=== PATIENT | male | born 1975 | race Caucasian/White ===

== ENCOUNTER 2016-12-27 13:13 | Inpatient (IN) | payer SELFPAY ==
[2016-12-27] MEDS ORDERED: KETOROLAC TROMETHAMINE INJ/PF 30 MG/1 ML SDV IV ONE (13:36)
[2016-12-27] MEDS ORDERED: ONDANSETRON ODT 4 MG TAB (6 TAB/DSPK) PO PRN (13:36)
[2016-12-27] MEDS ORDERED: MORPHINE SULFATE 10 MG/ML INJ IV ONE (13:36)
--- NOTE | 2016-12-27 13:40 | ER Document Report ---
ED Medical Screen (RME) - General Chief Complaint: Abdominal Pain Stated Complaint: ABDOMINAL PAIN Time Seen by Provider: 12/27/16 13:32 Notes: Patient presents with sudden onset of right flank pain that radiates into both testicles. He has been nauseous. He states he does have a previous history of kidney stones although this feels slightly different. On exam his testicles are not swollen or enlarged. There is no induration. I do not see any significant evidence of torsion at this time. Exam seems to be more consistent with a ureteral stone. TRAVEL OUTSIDE OF THE [place] IN LAST 30 DAYS: No - Related Data Allergies/Adverse Reactions: No Known Allergies Allergy (Verified 12/27/16 13:27) Past Medical History - Past Medical History Cardiac Medical History: Denies: Hx Coronary Artery Disease, Hx Heart Attack, Hx Hypertension Pulmonary Medical History: Reports: Hx Bronchitis, Hx Pneumonia Denies: Hx Asthma, Hx COPD Neurological Medical History: Denies: Hx Cerebrovascular Accident, Hx Seizures Renal/ Medical History: Denies: Hx Peritoneal Dialysis Musculoskeltal Medical History: Denies Hx Arthritis, Reports Hx Gout Psychiatric Medical History: Reports: Hx Attention Deficit Hyperactivity Disorder Past Surgical History: Denies: Hx Pacemaker - Immunizations Immunizations up to date: Yes Hx Diphtheria, Pertussis, Tetanus Vaccination: Yes Physical Exam - Vital signs Vitals: Temp Pulse BP Pulse Ox 97.4 F 91 127/97 H 100 12/27/16 13:28 12/27/16 13:28 12/27/16 13:28 12/27/16 13:28 Course - Vital Signs Vital signs: Temp Pulse Resp BP Pulse Ox 97.4 F 91 127/97 H 100 12/27/16 13:28 12/27/16 13:28 12/27/16 13:28 12/27/16 13:28
[2016-12-27] MEDS ORDERED: ONDANSETRON HCL INJ/PF 4 MG/2 ML SDV IV ONE (13:48)
[2016-12-27] MEDS: NORMAL SALINE 1000 ML 1,000 ML IV PRN ×3 (13:52→21:05)
[2016-12-27 14:19] LABS: ALANINE AMINOTRANSFERASE 17 U/L (21-72); ALBUMIN 4.7 g/dL (3.5-5.0); ALKALINE PHOSPHATASE 88 U/L (38-126); ANION GAP 15 (5-19); ASPARTATE AMINO TRANSFERASE 16 U/L (17-59); BILIRUBIN,DIRECT 0.3 mg/dL (0.0-0.4); BILIRUBIN,TOTAL 1.3 mg/dL (0.2-1.3); BLOOD UREA NITROGEN 13 mg/dL (7-20); CALCIUM 9.9 mg/dL (8.4-10.2); CARBON DIOXIDE 23 mmol/L (22-30); CHLORIDE 103 mmol/L (98-107); CREATININE RESULT 0.73 mg/dL (0.52-1.25); GLUCOSE 101 mg/dL (75-110); POTASSIUM 3.9 mmol/L (3.6-5.0); SODIUM 140.5 mmol/L (137-145); TOTAL PROTEIN 7.9 g/dL (6.3-8.2)
--- NOTE | 2016-12-27 14:25 | RADIOLOGY REPORT (SQ) ---
EXAM DESCRIPTION: CT ABD/PELVIS NO ORAL OR IV COMPLETED DATE/TIME: 12/27/2016 2:08 pm REASON FOR STUDY: left flank pain COMPARISON: None. TECHNIQUE: CT scan of the abdomen and pelvis performed without intravenous or oral contrast. Images reviewed with lung, soft tissue, and bone windows. Reconstructed coronal and sagittal MPR images revi ewed. All images stored on PACS. All CT scanners at this facility use dose modulation, iterative reconstruction, and/or weight based d osing when appropriate to reduce radiation dose to as low as reasonably achievable (ALARA). [facility]: Dose Right [facility]: CareDose [facility]: Dose Right [facility]: Teradose 4D [facility]: Smart Hubspan RADIATION DOSE: Up-to-date CT equipment and radiation dose reduction techniques were employed. CTDIv ol: 10.9 mGy. DLP: 673 mGy-cm.mGy. LIMITATIONS: None. FINDINGS: LOWER CHEST: No significant findings. No nodules or infiltrates. NON-CONTRASTED LIVER, SPLEEN, ADRENALS: Evaluation limited by lack of IV contrast. No identified sign ificant masses. PANCREAS: No masses. No peripancreatic inflammatory changes. GALLBLADDER: No identified stones by CT criteria. No inflammatory changes to suggest cholecystitis. RIGHT KIDNEY AND URETER: No suspicious masses. Assessment limited by lack of IV contrast. No signif icant calcifications. No hydronephrosis or hydroureter. LEFT KIDNEY AND URETER: No suspicious masses. Assessment limited by lack of IV contrast. No signifi cant calcifications. No hydronephrosis or hydroureter. AORTA AND RETROPERITONEUM: No aneurysm. No retroperitoneal masses or adenopathy. BOWEL AND PERITONEAL CAVITY: Several diverticuli in the sigmoid colon. There is minimal inflammation in the adjacent soft tissues. No focal fluid collections to suggest a formed abscess. There are a few tiny bubbles of free air located under the right and left diaphragm. APPENDIX: Not visualized. PELVIS, BLADDER, AND ABDOMINAL WALL:No abnormal masses. No free fluid. Bladder normal. BONES: No significant findings. OTHER: No other significant finding. IMPRESSION: 1. NUMEROUS SIGMOID DIVERTICULI. POSSIBLE MILD SIGMOID DIVERTICULITIS. 2. A FEW TINY BUBBLES OF FREE AIR PRESENT UNDER THE RIGHT AND LEFT HEMIDIAPHRAGM. NO OBVIOUS SOURCE ALTHOUGH MAY BE RELATED TO SIGMOID DIVERTICULITIS. 3. NO OTHER SIGNIFICANT OR ACUTE PROCESS IN THE ABDOMEN OR PELVIS. TECHNICAL DOCUMENTATION: JOB ID: [id number] Quality ID # [id number]: Final reports with documentation of one or more dose reduction techniques (e.g., Au tomated exposure control, adjustment of the mA and/or kV according to patient size, use of iterative reconstruction technique) 2010 [employer]- All Rights Reserved
[2016-12-27 14:35] LABS: HEMOGLOBIN 16.8 g/dL (13.5-17.0); HGB HCT DIFFERENCE 1.4; MEAN CORPUSCULAR HEMOGLOBIN 29.9 pg (27.0-33.4); MEAN CORPUSCULAR HGB CONC 34.3 g/dL (32.0-36.0); MEAN CORPUSCULAR VOLUME 87 fl (80-97); RED BLOOD COUNT 5.61 10^6/uL (4.35-5.55); RED CELL DISTRIBUTION WIDTH 13.9 % (11.5-14.0); WHITE BLOOD COUNT 26.4 10^3/uL (4.0-10.5)
[2016-12-27 14:36] LABS: BASOPHILS % (MANUAL) 0 % (0-2); EOSINOPHILS % (MANUAL) 0 % (0-6); LYMPHOCYTES % (MANUAL) 15 % (13-45); TOTAL CELLS COUNTED 100
[2016-12-27 14:37] LABS: RBC MORPHOLOGY COMMENT NORMO-CYTIC/CHROMIC; TOXIC VACUOLATION PRESENT
[2016-12-27] MEDS ORDERED: HYDROMORPHONE HCL INJ/PF 2 MG/ML AMPULE IV ONE (14:50)
[2016-12-27] MEDS ORDERED: IMIPENEM/CILASTATIN SODIUM INJ 500 MG VIAL IV ONE (14:50)
[2016-12-27] MEDS ORDERED: METRONIDAZOLE 500 MG/NS RTU 100 ML IV ONE ×2 (14:52→23:02)
[2016-12-27] MEDS ORDERED: NORMAL SALINE 1000 ML 1,000 ML IV PRN (14:52)
[2016-12-27] MEDS ORDERED: LEVOFLOXACIN 750 MG/D5W RTU 150 ML IV ONE (14:52)
--- NOTE | 2016-12-27 14:53 | ER Document Report ---
ED GI/ - General Mode of Arrival: Ambulatory Information source: Patient TRAVEL OUTSIDE OF THE [place] IN LAST 30 DAYS: No - HPI Patient complains to provider of: Abdominal pain Associated symptoms: Other - See above <VERONICA LOAIZA - Last Filed: 12/27/16 16:27> <SAFIA NEVAREZ - Last Filed: 12/27/16 22:26> - General Chief Complaint: Abdominal Pain Stated Complaint: ABDOMINAL PAIN Time Seen by Provider: 12/27/16 13:32 Notes: Patient is a 41 year old male, with a past medical history including kidney stones and ulcers, who presents to the emergency department complaining of abdominal pain onset at 1600 yesterday. Patient reports the pain came on suddenly located around his belly button and shoots down to his testicles, today it is also in his right side. Patient states that it feels different from his previous kidney stones. Patient reports he thought it may have been constipation so he took stool softeners yesterday and has had black watery diarrhea. Patient also complains of vomiting. Patient admits he takes Motrin regularly for his headaches. Patient states that he has had constant left lower abdominal pain for years and has had it looked at by a doctor who did not believe it was anything to worry about. (VERONICA LOAIZA) - Related Data Allergies/Adverse Reactions: No Known Allergies Allergy (Verified 12/27/16 13:27) Home Medications: Current Home Medications Ibuprofen [Advil] 1,200 mg PO DAILYP PRN 12/27/16 [History] Past Medical History - General Information source: Patient - Social History Smoking Status: Current Every Day Smoker Chew tobacco use (# tins/day): No Frequency of alcohol use: None Drug Abuse: Marijuana Family History: Reviewed & Not Pertinent, DM, Malignancy Patient has suicidal ideation: No Patient has homicidal ideation: No Pulmonary Medical History: Reports: Hx Bronchitis, Hx Pneumonia Renal/ Medical History: Reports: Hx Kidney Stones GI Medical History: Reports: Hx Ulcer Musculoskeltal Medical History: Reports Hx Gout Psychiatric Medical History: Reports: Hx Attention Deficit Hyperactivity Disorder Surgical Hx: Negative - Immunizations Immunizations up to date: Yes Hx Diphtheria, Pertussis, Tetanus Vaccination: Yes <VERONICA LOAIZA - Last Filed: 12/27/16 16:27> Review of Systems - Review of Systems Constitutional: No symptoms reported EENT: No symptoms reported Cardiovascular: No symptoms reported Respiratory: No symptoms reported Gastrointestinal: See HPI, Abdominal pain, Vomiting Genitourinary: No symptoms reported Male Genitourinary: See HPI, Testicular pain Musculoskeletal: No symptoms reported Skin: No symptoms reported Hematologic/Lymphatic: No symptoms reported Neurological/Psychological: No symptoms reported -: Yes All other systems reviewed and negative <VERONICA LOAIZA - Last Filed: 12/27/16 16:27> Physical Exam <VERONICA LOAIZA - Last Filed: 12/27/16 16:27> <SAFIA NEVAREZ - Last Filed: 12/27/16 22:26> - Vital signs Vitals: Temp Pulse BP Pulse Ox 97.4 F 91 127/97 H 100 12/27/16 13:28 12/27/16 13:28 12/27/16 13:28 12/27/16 13:28 - Notes Notes: GENERAL: Alert. Appears uncomfortable. HEAD: Normocephalic, atraumatic. EYES: Pupils equal, round, and reactive to light. Extraocular movements intact. ENT: Oral mucosa moist, tongue midline. NECK: Full range of motion. Supple. Trachea midline. LUNGS: Clear to auscultation bilaterally, no wheezes, rales, or rhonchi. No respiratory distress. HEART: Regular rate and rhythm. No murmurs, gallops, or rubs. ABDOMEN: Diffuse tenderness to palpation of lower abdomen worst on right hand side, some suprapubic tenderness. Some guarding, no rigidity. Non-distended. Bowel sounds present in all 4 quadrants. RECTAL: Minimal soft brown stool. No blood. No melena. One small non thrombosed hemorrhoid GENITOURINARY: No tenderness to palpation of epididymis and testicles, no swelling. Cremasteric reflex in tact. EXTREMITIES: Moves all 4 extremities spontaneously. No edema, radial and dorsalis pedis pulses 2/4 bilaterally. No cyanosis. NEUROLOGICAL: Alert and oriented x3. Normal speech. PSYCH: Normal affect, normal mood. SKIN: Warm, dry, normal turgor. No rashes or lesions noted. (VERONICA LOAIZA) Course - Laboratory Result Diagrams: 12/27/16 13:50 12/27/16 13:50 - Consults Surgery Time consulted: 14:53 <VERONICA LOAIZA - Last Filed: 12/27/16 16:27> - Laboratory Result Diagrams: 12/27/16 13:50 12/27/16 13:50 <SAFIA NEVAREZ - Last Filed: 12/27/16 22:26> - Re-evaluation Re-evalutation: 12/27/16 14:56 CBC shows marked leukocytosis at 26.4, CMP unremarkable, CT scan of the abdomen and pelvis does not visualize the appendix but does show free air near the diaphragm. Abdominal exam is suggestive of acute appendicitis likely with rupture given the free air. Patient is made n.p.o., pain is treated, patient is hydrated, I did consult with Dr. Sierra the surgeon on-call who is going to come and examine the patient and then take him straight to surgery. Patient is given Levaquin and Flagyl per surgery recommendation. (SAFIA NEVAREZ) - Vital Signs Vital signs: Temp Pulse Resp BP Pulse Ox 98.9 F 69 28 H 156/78 H 95 12/27/16 20:54 12/27/16 15:48 12/27/16 20:01 12/27/16 20:01 12/27/16 20:01 - Laboratory Laboratory results interpreted by me: 12/27/16 12/27/16 13:50 13:50 WBC 26.4 H RBC 5.61 H Seg Neuts % (Manual) 81 H Abs Neuts (Manual) 21.4 H AST 16 L ALT 17 L - Consults Surgery Reason for consultation: 12/27/[address] Sierra, surgeon, recommends to give Flagyl and Levoquin and the hydrate aggressively (VERONICA LOAIZA) Discharge <VERONICA LOAIZA - Last Filed: 12/27/16 16:27> - Discharge Admitting Provider: Surgicalist Unit Admitted: OR <SAFIA NEVAREZ - Last Filed: 12/27/16 22:26> - Discharge Clinical Impression: Intra-abdominal free air of unknown etiology Condition: Fair Disposition: ADMITTED INPATIENT Scribe Attestation: 12/27/16 22:26 I personally performed the services described in the documentation, reviewed and edited the documentation which was dictated to the scribe in my presence, and it accurately records my words and actions. (SAFIA NEVAREZ) Scribe Documentation - Scribe Written by Scribe:: nazia Patel, 12/27/16, 1536 acting as scribe for :: Natanael <VERONICA LOAIZA - Last Filed: 12/27/16 16:27>
--- NOTE | 2016-12-27 16:09 | PDOC H&P ---
History of Present Illness Patient complains of: abdominal pain more in the right lower quadrant History of Present Illness: JENNY KOWALSKI JR is a 41 year old male with RLQ pain x 24 hours. The patient has a past medical history including kidney stones and ulcers, who presents to the emergency department complaining of abdominal pain onset at 1600 yesterday. Patient reports the pain came on suddenly located around his belly button and shoots down to his testicles, today it is also in his right side. Patient states that it feels different from his previous kidney stones. Patient reports he thought it may have been constipation so he took stool softeners yesterday and has had black watery diarrhea. Patient also complains of vomiting. Past Medical History Medical History: None Cardiac Medical History: Denies: Coronary Artery Disease, Myocardial Infarction, Hypertension Pulmonary Medical History: Reports: Bronchitis, Pneumonia Denies: Asthma, Chronic Obstructive Pulmonary Disease (COPD) Neurological Medical History: Denies: Seizures Musculoskeltal Medical History: Reports: Gout Denies: Arthritis Psychiatric Medical History: Reports: Attention Deficit Hyperactivity Disorder Hematology: Denies: Anemia Past Surgical History Past Surgical History: Reports: None Denies: Pacemaker Social History Smoking Status: Current Every Day Smoker Frequency of Alcohol Use: Rare Hx Recreational Drug Use: Yes Drugs: Marijuana Family History Family History: Reviewed & Not Pertinent, DM, Malignancy Parental Family History Reviewed: Yes - cancer Children Family History Reviewed: Yes Sibling(s) Family History Reviewed.: Yes Medication/Allergy Allergies/Adverse Reactions: No Known Allergies Allergy (Verified 12/27/16 13:27) Physical Exam Vital Signs: Temp Pulse Resp BP Pulse Ox 97.4 F 69 15 128/76 H 99 12/27/16 13:28 12/27/16 15:48 12/27/16 15:48 12/27/16 15:48 12/27/16 15:48 Intake & Output 12/26/16 12/27/16 12/28/16 06:59 06:59 06:59 Intake Total 1000 Balance 1000 Weight 82.6 kg Results Laboratory Results: 12/27/16 13:50 12/27/16 13:50 12/27/16 12/27/16 12/27/16 13:50 13:50 15:21 WBC 26.4 H RBC 5.61 H Hgb 16.8 Hct 49.0 MCV 87 MCH 29.9 MCHC 34.3 RDW 13.9 Plt Count 305 Seg Neutrophils % Not Reportable Lymphocytes % Not Reportable Monocytes % Not Reportable Eosinophils % Not Reportable Basophils % Not Reportable Absolute Neutrophils Not Reportable Absolute Lymphocytes Not Reportable Absolute Monocytes Not Reportable Absolute Eosinophils Not Reportable Absolute Basophils Not Reportable Sodium 140.5 Potassium 3.9 Chloride 103 Carbon Dioxide 23 Anion Gap 15 BUN 13 Creatinine 0.73 Est GFR ( Amer) > 60 Est GFR (Non-Af Amer) > 60 Glucose 101 Calcium 9.9 Total Bilirubin 1.3 AST 16 L ALT 17 L Alkaline Phosphatase 88 Total Protein 7.9 Albumin 4.7 Stool Occult Blood NEGATIVE Impressions: Abdomen/Pelvis CT 12/27/16 13:33 IMPRESSION: 1. NUMEROUS SIGMOID DIVERTICULI. POSSIBLE MILD SIGMOID DIVERTICULITIS. 2. A FEW TINY BUBBLES OF FREE AIR PRESENT UNDER THE RIGHT AND LEFT HEMIDIAPHRAGM. NO OBVIOUS SOURCE ALTHOUGH MAY BE RELATED TO SIGMOID DIVERTICULITIS. 3. NO OTHER SIGNIFICANT OR ACUTE PROCESS IN THE ABDOMEN OR PELVIS. Assessment & Plan - Plan Summary Plan Summary: A/ Diffuse abdominal pain with anorexia, vomiting Pain mostly in the RLQ on physical exam WBC 26 CT scan with few bubbles of free air Findings consistent with possible acute perforated appendicitis P/ IV hydration 3 L NS, then 150 mL /hr Levaquin/Flagyl IV NPO Plan: diagnostic laparoscopy, possible appendectomy, possible laparotomy. Procedure, risks, benefits and complications discussed with the patient, his questions were answered and he decides to proceed.
[2016-12-27] MEDS ORDERED: BUPIVACAINE HCL 0.25% /EPINEPHRINE INJ/PF 30 ML SDV ONE (17:27)
[2016-12-27] MEDS ORDERED: LIDOCAINE 1% INJ-PF (10 MG/ML) 30 ML SDV ONE (17:27)
[2016-12-27 17:51] LABS: APPEARANCE,URINE SLIGHTLY-CLOUDY; BILIRUBIN,URINE NEGATIVE (NEGATIVE); GLUCOSE, URINE NEGATIVE (NEGATIVE); KETONES,URINE TRACE mg/dL (NEGATIVE); LEUKOCYTE ESTERASE,URINE NEGATIVE (NEGATIVE); NITRITE,URINE NEGATIVE (NEGATIVE); PROTEIN,URINE 100 mg/dL (NEGATIVE); URINE SPECIFIC GRAVITY 1.031; UROBILINOGEN,URINE NEGATIVE mg/dL (<2.0)
[2016-12-27] MEDS ORDERED: ONDANSETRON HCL INJ/PF 4 MG/2 ML SDV IV PRN (20:53)
[2016-12-27] MEDS ORDERED: MORPHINE SULFATE 10 MG/ML INJ IV PRN (20:53)
[2016-12-27] MEDS ORDERED: PROPOFOL INJ 200 MG/20 ML VIAL IV ONE (21:26)
[2016-12-27] MEDS ORDERED: EPHEDRINE SULFATE INJ 50 MG/1 ML AMPULE ONE (21:26)
[2016-12-27] MEDS ORDERED: MIDAZOLAM 2 MG/2 ML INJ ONE (21:26)
[2016-12-27] MEDS ORDERED: FENTANYL CITRATE INJ/PF 100 MCG/2 ML AMPUL ONE (21:26)
[2016-12-27] MEDS ORDERED: HYDROMORPHONE HCL INJ/PF 2 MG/ML AMPULE ONE (21:27)
[2016-12-27] MEDS ORDERED: DIPHENHYDRAMINE HCL 50 MG/ML VIAL IV PRN (22:27)
[2016-12-27] MEDS ORDERED: MEPERIDINE HCL/PF INJ 25 MG/1 ML DISP.SYRIN IV PRN (22:27)
[2016-12-27] MEDS ORDERED: FENTANYL CITRATE INJ/PF 100 MCG/2 ML AMPUL IV PRN ×3 (22:27)
[2016-12-27] MEDS ORDERED: BUPIVACAINE HCL 0.25% /EPINEPHRINE INJ/PF 30 ML SDV INJ ONE (22:46)
[2016-12-27 23:53] LABS: AMORPHOUS SEDIMENT,URINE 1+ /HPF; APPEARANCE,URINE TURBID; BILIRUBIN,URINE NEGATIVE (NEGATIVE); GLUCOSE, URINE NEGATIVE (NEGATIVE); KETONES,URINE TRACE mg/dL (NEGATIVE); LEUKOCYTE ESTERASE,URINE NEGATIVE (NEGATIVE); NITRITE,URINE NEGATIVE (NEGATIVE); PROTEIN,URINE 30 mg/dL (NEGATIVE); UROBILINOGEN,URINE NEGATIVE mg/dL (<2.0)
[2016-12-28] MEDS ORDERED: ONDANSETRON HCL INJ/PF 4 MG/2 ML SDV IV PRN (02:03)
--- NOTE | 2016-12-28 02:03 | Operative Report ---
Operative Report DATE OF SURGERY: 12/27/16 PREOPERATIVE DIAGNOSIS: Free intaperitoneal air. Peritonitis. inflammatory changes sigmoid colon POSTOPERATIVE DIAGNOSIS: same. perforated sigmoid colon OPERATION: diagnostic laparoscopy. exploratory laparotomy. sigmoidectomy and Mendiola's pouch. incidental appendectomy. descending colostomy SURGEON: LASHON STORY ANESTHESIA: Local TISSUE REMOVED OR ALTERED: sigmoid colon; appendix COMPLICATIONS: none ESTIMATED BLOOD LOSS: <100 mL PROCEDURE: see dictation
[2016-12-28] MEDS ORDERED: GLUCAGON,HUMAN RECOMB 1 MG INJ SUBCUT PRN (02:07)
[2016-12-28] MEDS ORDERED: DEXTROSE 50%-WATER 25 GM/50 ML DISP.SYRIN IV PRN ×2 (02:07)
[2016-12-28] MEDS ORDERED: DEXTROSE 40% GEL 15 GM TUBE PO PRN ×2 (02:07)
[2016-12-28] MEDS: FENTANYL CITRATE INJ/PF 100 MCG/2 ML AMPUL ONE ×2 (02:13→02:33)
[2016-12-28] MEDS ORDERED: PHARMACY COMMUNICATION ORDER MC NR (02:15)
[2016-12-28] MEDS ORDERED: KETOROLAC TROMETHAMINE INJ/PF 30 MG/1 ML SDV IV PRN (02:19)
[2016-12-28] MEDS ORDERED: NORMAL SALINE 1000 ML 1,000 ML IV PRN (02:25)
[2016-12-28] MEDS: HYDROMORPHONE HCL INJ/PF 2 MG/ML AMPULE IV PRN ×3 (04:08→09:53)
[2016-12-28 05:16] LABS: HEMATOCRIT 41.3 % (37.9-51.0); MEAN CORPUSCULAR HGB CONC 34.1 g/dL (32.0-36.0); MEAN CORPUSCULAR VOLUME 88 fl (80-97); RED CELL DISTRIBUTION WIDTH 13.9 % (11.5-14.0); WHITE BLOOD COUNT 24.4 10^3/uL (4.0-10.5)
[2016-12-28 05:18] LABS: HEMOGLOBIN 14.1 g/dL (13.5-17.0)
[2016-12-28 05:19] LABS: ANION GAP 10 (5-19); BLOOD UREA NITROGEN 14 mg/dL (7-20); CALCIUM 8.4 mg/dL (8.4-10.2); CARBON DIOXIDE 20 mmol/L (22-30); CHLORIDE 109 mmol/L (98-107); CREATININE RESULT 0.76 mg/dL (0.52-1.25); GLUCOSE 108 mg/dL (75-110); POTASSIUM 4.6 mmol/L (3.6-5.0)
[2016-12-28 05:23] LABS: BAND NEUTROPHILS % (MANUAL) 3 % (3-5); BASOPHILS % (MANUAL) 0 % (0-2); EOSINOPHILS % (MANUAL) 0 % (0-6); LYMPHOCYTES % (MANUAL) 3 % (13-45); TOTAL CELLS COUNTED 100
[2016-12-28 05:24] LABS: RBC MORPHOLOGY COMMENT NORMO-CYTIC/CHROMIC; TOXIC GRANULATION SLIGHT; TOXIC VACUOLATION PRESENT
[2016-12-28] MEDS: METRONIDAZOLE 500 MG/NS RTU 100 ML IV SCH ×4 (06:00→23:07)
--- NOTE | 2016-12-28 06:53 | RADIOLOGY REPORT (SQ) ---
EXAM DESCRIPTION: KUB/ABDOMEN (SINGLE VIEW) COMPLETED DATE/TIME: 12/28/2016 4:47 am REASON FOR STUDY: Check Placement of NG Tube COMPARISON: CT, 12/27/2016. NUMBER OF VIEWS: One view. TECHNIQUE: Supine radiographic image of the abdomen acquired. LIMITATIONS: None. FINDINGS: BOWEL GAS PATTERN: Normal bowel gas pattern. No dilated loops. CALCIFICATIONS: No suspicious calcifications. SOFT TISSUES: No gross mass or suggestion of organomegaly. HARDWARE: Adequate appearing NG tube tip at the expected gastric antrum/body. BONES: No acute fracture. No worrisome bone lesions. OTHER: Small left basilar atelectasis or scar. IMPRESSION: NO RADIOGRAPHIC EVIDENCE FOR ACUTE ABDOMINAL DISEASE. NG tube. Small left lower lobar atelectasis or scar. TECHNICAL DOCUMENTATION: JOB ID: [id number]- All Rights Reserved
[2016-12-28] MEDS ORDERED: GLYCOPYRROLATE INJ 0.4 MG/2 ML VIAL ONE (07:31)
[2016-12-28] MEDS ORDERED: NEOSTIGMINE METHYLSULFATE 10 MG/10 ML VIAL ONE (07:31)
[2016-12-28] MEDS ORDERED: DEXAMETHASONE SOD PHOSPHATE INJ 4 MG/1 ML VIAL ONE (07:31)
[2016-12-28] MEDS ORDERED: SUCCINYLCHOLINE CHLORIDE INJ 200 MG/10 ML VIAL ONE (07:31)
[2016-12-28] MEDS ORDERED: LIDOCAINE 2% INJ-PF (20 MG/ML) 10 ML AMPUL ONE (07:31)
[2016-12-28] MEDS ORDERED: ROCURONIUM BROMIDE INJ 50 MG/5 ML VIAL IV ONE (07:31)
[2016-12-28] MEDS ORDERED: ONDANSETRON HCL INJ/PF 4 MG/2 ML SDV ONE (07:31)
[2016-12-28] MEDS: BENZOCAINE/MENTHOL SORE THROAT LOZENGE BUCCAL PRN ×6 (07:33→22:16)
[2016-12-28] MEDS: PANTOPRAZOLE SODIUM 40 MG VIAL IV SCH (09:53)
[2016-12-28] MEDS: LEVOFLOXACIN 750 MG/D5W RTU 750 MG/150 ML RTUPB IV SCH (09:54)
[2016-12-28] MEDS ORDERED: HEPARIN SOD (PORCINE) 5,000 UNIT/ML 1 ML SYRINGE SUBCUT SCH (10:00)
--- NOTE | 2016-12-28 10:35 | OPERATIVE REPORT E ---
Operative Report NAME: JENNY KOWALSKI : 1975 AGE: 41Y DATE OF SURGERY: 12/27/2016 ROOM: 538 PREOPERATIVE DIAGNOSES: 1. FREE INTRAPERITONEAL AIR. 2. PERITONITIS. 3. ABDOMINAL PAIN. 4. SIGMOID INFLAMMATION. POSTOPERATIVE DIAGNOSES: 1. FREE INTRAPERITONEAL AIR. 2. PERITONITIS. 3. ABDOMINAL PAIN. 4. SIGMOID INFLAMMATION. 5. PERFORATED SIGMOID COLON. OPERATION: 1. Diagnostic laparoscopy. 2. Exploratory laparotomy. 3. Sigmoidectomy. 4. Appendectomy. 5. Piyush pouch. 6. Descending colostomy. SURGEON: LASHON STORY M.D. BRAZING MACHINE FEEDER: None. BLEEDIN. FLUIDS: 4000. URINE OUTPUT: 400. COMPLICATIONS: None. DRAINS: Two 10 mm Rajendra drains. ANESTHESIA: General. INDICATIONS AND FINDING: This is a healthy 41-year-old male presents to the emergency room with a history of abdominal pain, peritonitis, intense nausea. A CT scan of the abdomen and pelvis was done that revealed a few bubbles of intraperitoneal air together with severe inflammation of the sigmoid colon. Because of the acute exam and history and physical findings of severe peritonitis, a decision was made to take the patient to surgery urgently. PROCEDURE: The procedure was done in the operating room. The patient was placed in supine position. General anesthesia was induced by endotracheal intubation. Abdomen shaved, prepped and draped in the usual fashion. A small incision was made just above the umbilicus. The skin was tented with towel clips. A 5 mm port with Optiview adapter, and scope were inserted through the abdominal wall into the peritoneal cavity. Pneumoperitoneum was then established. A second 5 mm port was placed in the left lower quadrant and the right upper quadrant of the abdomen. The abdominal cavity was then entered with a scope and the entire abdominal cavity appeared to be involved with severe inflammatory process with free fluid in the abdomen. In addition, a large amount of fibrin and inflammatory changes of the small bowel were noted. At this point, a decision was made to abort the laparoscopy and to start a laparotomy which was done by removing all the ports. A midline incision was made from just above the umbilicus down to the symphysis pubis. The linea alba was opened with Bovie. The peritoneal cavity was then entered. The small bowel was found to be inflamed and matted against the pelvis. Gently mobilized. A large amount of purulent material was identified and aspirated and sent for aerobic and anaerobic culture and Gram's stain. Inflammatory changes thickening were identified at the level of the sigmoid colon which appeared to be the source of the inflammatory process. At this point, the Bookwalter retractor was placed. The sigmoid colon was evaluated by elevating it from the peritoneum laterally first and dissection was then continued on the lateral aspect of the descending colon which was lifted of the retroperitoneum. After this was performed, a search of the left ureter was performed. This was identified and tagged with a vessel loop. The dissection of the sigmoid colon was continued then proximally until a suitable point of division was identified at the transition between the descending colon and the sigmoid colon. At this point, an opening was made in the mesentery of the transverse colon and a RORY 75 mm stapler with green load was then fired to divide the descending colon and the sigmoid colon. The mesentery of the sigmoid colon was then divided with Bovie first and then with LigaSure. The sigmoid colon was then stretched and dissected distally towards the peritoneal reflection. When a suitable soft portion of the sigmoid colon was identified distal to the perforation, the sigmoid colon was prepared by removing the perisigmoid fatty tissue so that only the sigmoid colon wall was exposed. The mesentery of the sigmoid colon was then divided with LigaSure,the sigmoid colon was then freed, and a Contour stapler with green load was then used to divide the sigmoid colon from the rectum. The specimen was removed from the surgical field. The Piyush pouch was inspected. The staple line was found to be intact and reinforced with Lembert 2-0 silk interrupted sutures. The Piyush pouch was then tagged with two 2-0 Prolene sutures which were left long. The descending colon was then examined and found to be suitable to construct a colostomy. The medial and lateral peritoneal attachments of the mesentery of the descending colon were then divided with Ligasure to allow for the lengthening of the colon to construct the colostomy. The peritoneal cavity was irrigated with about 6 liters of warm normal saline. Prior to closing the abdomen, the appendix was identified, dissected from the retroperitoneum and removed. Of note, the appendix was completely retroperitoneal and it took a painstaking blunt and Bovie dissection to remove the appendix from the retroperitoneum itself. Once the appendix was freed from the adhesions, 2 hemostats were placed at the base of the appendix. The appendix was divided in between the 2 and removed from the surgery field. A 2-0 silk horizontal mattress suture was placed at the base of the appendix, tied and a second 2-0 Vicryl free hand tie was placed around the base of the appendix and tied. The mucosa of the appendiceal base was then cauterized with Bovie. Two 10 mm Rajendra drains were placed in the right and left lower quadrant respectively. The drain on the left was placed in the left gutter. The drain on the right was placed in the pelvis. Both drains were secured to the skin with a 2-0 nylon suture. A point of the left lateral abdominal wall was chosen for the colostomy site. This was located just below and to the left of the umbilicus. The skin was grasped with a Teddy clamp and circumferentially marked with a surgical marker. The skin was then divide circumferentially together with the subcutaneus fat tissue down to the anterior rectus sheath. This was divided in a posterior fashion with Bovie and the rectus fibers were split longitudinally. Two fingers were inserted into the colostomy and the descending colon was threaded through the colostomy itself and maintained in place with interrupted seromuscular 2-0 Vicryl sutures which were sutured to the anterior and posterior rectus sheath. The anterior abdominal wall was closed with #1 looped running PDS suture. The subcutaneous tissue was irrigated with normal saline. Skin was stapled. The colostomy was matured by dividing the staple line with Bovie and several three-point 2-0 Vicryl sutures were circumferentially placed to make sure the colostomy was everting. After this, a colostomy flange was then secured to the skin together with a colostomy bag and the midline incision was covered with dry sponges. The patient tolerated the procedure well, was extubated and transferred to the recovery room in satisfactory condition. The count of needles, instruments, and sponges was correct time 3. DICTATING PHYSICIAN: LASHON STORY M.D. [id number] GITAY#: [id number] ID: [id number] JOB#: [id number] ACCT: [id number] cc:LASHON STORY M.D. > [facility]
--- NOTE | 2016-12-28 11:08 | PDOC PROGRESS REPORT ---
Subjective Progress Note for:: 12/28/16 Subjective:: patient comfortable, but thirsty, c/o incisional pain Physical Exam Vital Signs: Temp Pulse Resp BP Pulse Ox 97.6 F 69 16 113/61 100 12/28/16 08:45 12/28/16 08:45 12/28/16 08:45 12/28/16 08:45 12/28/16 08:45 Intake & Output 12/27/16 12/28/16 12/29/16 06:59 06:59 06:59 Intake Total 100 341 Output Total 330 Balance -230 341 Weight 89 kg General appearance: PRESENT: no acute distress Mouth exam: PRESENT: dry mucosa Respiratory exam: PRESENT: clear to auscultation heena Cardiovascular exam: PRESENT: RRR GI/Abdominal exam: PRESENT: distended, other - no bowel sounds, midline wound covered with dressings karla, dry, USMAN in the R and L lower quadrants with serosanguinous fluid; colostomy pink Results Laboratory Results: 12/28/16 04:07 12/28/16 04:07 12/28/16 12/28/16 04:07 04:07 WBC 24.4 H RBC 4.70 Hgb 14.1 D Hct 41.3 MCV 88 MCH 30.0 MCHC 34.1 RDW 13.9 Plt Count 235 Seg Neutrophils % Not Reportable Lymphocytes % Not Reportable Monocytes % Not Reportable Eosinophils % Not Reportable Basophils % Not Reportable Absolute Neutrophils Not Reportable Absolute Lymphocytes Not Reportable Absolute Monocytes Not Reportable Absolute Eosinophils Not Reportable Absolute Basophils Not Reportable Sodium 139.0 Potassium 4.6 Chloride 109 H Carbon Dioxide 20 L Anion Gap 10 BUN 14 Creatinine 0.76 Est GFR ( Amer) > 60 Est GFR (Non-Af Amer) > 60 Glucose 108 Calcium 8.4 Impressions: Abdomen/Pelvis CT 12/27/16 13:33 IMPRESSION: 1. NUMEROUS SIGMOID DIVERTICULI. POSSIBLE MILD SIGMOID DIVERTICULITIS. 2. A FEW TINY BUBBLES OF FREE AIR PRESENT UNDER THE RIGHT AND LEFT HEMIDIAPHRAGM. NO OBVIOUS SOURCE ALTHOUGH MAY BE RELATED TO SIGMOID DIVERTICULITIS. 3. NO OTHER SIGNIFICANT OR ACUTE PROCESS IN THE ABDOMEN OR PELVIS. KUB X-Ray 12/28/16 02:13 IMPRESSION: NO RADIOGRAPHIC EVIDENCE FOR ACUTE ABDOMINAL DISEASE. NG tube. Small left lower lobar atelectasis or scar. Assessment & Plan - Plan Summary Plan Summary: A/ POD#1 after diagnostic laparoscopy, laparotomy, sigmoidectomy, Mendiola's pouch, colostomy and incidental appendectomy for perforated sigmoid diverticulitits Patient doing well, but complaining of incisional pain Vital signs stable Good urine output minimal NGT output moderate drainage form abdominal USMAN drains Colostomy pink WBC 24, most likely still reactive BMP normal P/ continue NPO, NGT, IV hydration until bowel function returns change pain control to FORMING MACHINE TENDER with basal infusion O2 and pulse oxymeter while on FORMING MACHINE TENDER OOB/Ambulation
[2016-12-28] MEDS: HYDROMORPHONE HCL 30 MG/60 ML RTUINJ IV PRN (11:50)
[2016-12-29 04:25] LABS: ABSOLUTE EOSINOPHILS # (AUTO) 0.1 10^3/uL (0.0-0.6); ABSOLUTE LYMPHOCYTES (AUTO) 1.1 10^3/uL (0.5-4.7); ABSOLUTE MONOCYTES (AUTO) 0.8 10^3/uL (0.1-1.4); ABSOLUTE NEUT (AUTO) 10.6 10^3/uL (1.7-8.2); BASOPHILS % (AUTO) 0.3 % (0-2); EOSINOPHILS % (AUTO) 0.5 % (0-6); HEMATOCRIT 35.4 % (37.9-51.0); HEMOGLOBIN 12.1 g/dL (13.5-17.0); HGB HCT DIFFERENCE 0.9; LYMPHOCYTES % (AUTO) 8.5 % (13-45); MEAN CORPUSCULAR HEMOGLOBIN 30.2 pg (27.0-33.4); MEAN CORPUSCULAR HGB CONC 34.3 g/dL (32.0-36.0); MEAN CORPUSCULAR VOLUME 88 fl (80-97); MONOCYTES % (AUTO) 6.2 % (3-13); RED BLOOD COUNT 4.02 10^6/uL (4.35-5.55); RED CELL DISTRIBUTION WIDTH 13.9 % (11.5-14.0); SEGMENTED NEUTROPHILS % (AUTO) 84.5 % (42-78); WHITE BLOOD COUNT 12.6 10^3/uL (4.0-10.5)
[2016-12-29] MEDS: METRONIDAZOLE 500 MG/NS RTU 100 ML IV SCH ×4 (05:32→23:25)
[2016-12-29] MEDS: BENZOCAINE/MENTHOL SORE THROAT LOZENGE BUCCAL PRN ×5 (05:48→23:53)
--- NOTE | 2016-12-29 08:07 | PDOC PROGRESS REPORT ---
Subjective Progress Note for:: 12/29/16 Subjective:: Feels well. Does not like NG tube but otherwise no complaints. Physical Exam Vital Signs: Temp Pulse Resp BP Pulse Ox 98.4 F 70 15 140/73 H 99 12/29/16 07:28 12/29/16 07:28 12/29/16 07:28 12/29/16 07:28 12/29/16 07:28 Pulse Oximeter Continuous Start: 12/28/16 11: 08 Freq: RTQ4 Status: Active Document 12/29/16 04:00 SFL (Rec: 12/29/16 04:42 SFL [email or web address]) Pulse Oximetry Assessment Oxygen Saturation (92-100) 97 Oxygen Delivery Method Nasal Cannula Equipment Usage Equipment in Use Continuous SpO2 Machine # 2 Intake & Output 12/28/16 12/29/16 12/30/16 06:59 06:59 06:59 Intake Total 100 2081 Output Total 330 3020 Balance -230 -939 Weight 89 kg General appearance: PRESENT: no acute distress, cooperative Respiratory exam: PRESENT: clear to auscultation heena Cardiovascular exam: PRESENT: RRR GI/Abdominal exam: PRESENT: other - Soft, nondistended, minimal tenderness. NG output is bilious. Ostomy appears pink but edematous. No output via ostomy yet. Drain output is serosanguineous. Extremities exam: PRESENT: other - No swelling Results Laboratory Results: 12/29/16 04:05 12/28/16 04:07 12/29/16 04:05 WBC 12.6 H RBC 4.02 L Hgb 12.1 L Hct 35.4 L MCV 88 MCH 30.2 MCHC 34.3 RDW 13.9 Plt Count 198 Seg Neutrophils % 84.5 H Lymphocytes % 8.5 L Monocytes % 6.2 Eosinophils % 0.5 Basophils % 0.3 Absolute Neutrophils 10.6 H Absolute Lymphocytes 1.1 Absolute Monocytes 0.8 Absolute Eosinophils 0.1 Absolute Basophils 0.0 Impressions: Abdomen/Pelvis CT 12/27/16 13:33 IMPRESSION: 1. NUMEROUS SIGMOID DIVERTICULI. POSSIBLE MILD SIGMOID DIVERTICULITIS. 2. A FEW TINY BUBBLES OF FREE AIR PRESENT UNDER THE RIGHT AND LEFT HEMIDIAPHRAGM. NO OBVIOUS SOURCE ALTHOUGH MAY BE RELATED TO SIGMOID DIVERTICULITIS. 3. NO OTHER SIGNIFICANT OR ACUTE PROCESS IN THE ABDOMEN OR PELVIS. KUB X-Ray 12/28/16 02:13 IMPRESSION: NO RADIOGRAPHIC EVIDENCE FOR ACUTE ABDOMINAL DISEASE. NG tube. Small left lower lobar atelectasis or scar. Assessment & Plan - Diagnosis (1) Sigmoid diverticulitis Is this a current diagnosis for this admission?: YesPlan: Status post sigmoid colectomy with end colostomy. Patient looks good. Still does not have good bowel function. Keep NG tube and encourage ambulation.
[2016-12-29] MEDS ORDERED: DEXTROSE 40% GEL 15 GM TUBE NG PRN ×2 (08:44)
[2016-12-29] MEDS: LEVOFLOXACIN 750 MG/D5W RTU 750 MG/150 ML RTUPB IV SCH (09:37)
[2016-12-29] MEDS: PANTOPRAZOLE SODIUM 40 MG VIAL IV SCH (09:37)
[2016-12-30] MEDS: ONDANSETRON HCL INJ/PF 4 MG/2 ML SDV IV PRN ×2 (00:05→20:38)
[2016-12-30] MEDS: BENZOCAINE/MENTHOL SORE THROAT LOZENGE BUCCAL PRN ×3 (04:12→11:58)
[2016-12-30 04:29] LABS: ABSOLUTE EOSINOPHILS # (AUTO) 0.1 10^3/uL (0.0-0.6); ABSOLUTE NEUT (AUTO) 8.4 10^3/uL (1.7-8.2); BASOPHILS % (AUTO) 0.3 % (0-2); EOSINOPHILS % (AUTO) 1.1 % (0-6); HEMATOCRIT 35.6 % (37.9-51.0); HEMOGLOBIN 12.5 g/dL (13.5-17.0); HGB HCT DIFFERENCE 1.9; LYMPHOCYTES % (AUTO) 9.8 % (13-45); MEAN CORPUSCULAR HEMOGLOBIN 30.3 pg (27.0-33.4); MEAN CORPUSCULAR HGB CONC 35.2 g/dL (32.0-36.0); MEAN CORPUSCULAR VOLUME 86 fl (80-97); MONOCYTES % (AUTO) 9.4 % (3-13); RED BLOOD COUNT 4.12 10^6/uL (4.35-5.55); RED CELL DISTRIBUTION WIDTH 13.5 % (11.5-14.0); SEGMENTED NEUTROPHILS % (AUTO) 79.4 % (42-78); WHITE BLOOD COUNT 10.6 10^3/uL (4.0-10.5)
[2016-12-30] MEDS: HYDROMORPHONE HCL 30 MG/60 ML RTUINJ IV PRN (05:00)
[2016-12-30] MEDS: METRONIDAZOLE 500 MG/NS RTU 100 ML IV SCH ×4 (05:05→23:25)
--- NOTE | 2016-12-30 09:36 | PROGRESS NOTE E ---
Progress Note NAME: JENNY KOWALSKI : 1975 AGE: 41Y DATE: 12/30/2016 ROOM: 532 SUBJECTIVE: This is the second postop day for this patient. He is afebrile and just complaining of discomfort along the throat due to his NG tube. The NG has drained about 700 mL in the past 24 hours, but only drained about 100 mL of clear fluid from about 7:00 to 9:00 in the past 2 hours. The colostomy just drained a small amount of liquid. Patient has some bowel sounds and the abdomen is relatively flat and soft with the incision clean and dry. USMAN drains on both sides still has some serosanguineous drainage. His white count is down to 10.6 and his hemoglobin stable at 12.5. His temperature is 98.4 with a heart rate of 64 per minute and a blood pressure of 143/66. PLAN: Discontinue the NG tube today, but keep him n.p.o. until colostomy starts to function. Will get him out of bed. He is voiding on his own without a catheter. Does not have any calf tenderness. DICTATING PHYSICIAN: LUX WELLS M.D. [id number] PHY#: [id number] ID: [id number] JOB#: [id number] ACCT: [id number] cc: >
[2016-12-30] MEDS: PANTOPRAZOLE SODIUM 40 MG VIAL IV SCH (09:50)
[2016-12-30] MEDS: LEVOFLOXACIN 750 MG/D5W RTU 750 MG/150 ML RTUPB IV SCH (09:50)
[2016-12-31] MEDS: ONDANSETRON HCL INJ/PF 4 MG/2 ML SDV IV PRN ×3 (04:22→19:48)
[2016-12-31 04:29] LABS: ABSOLUTE EOSINOPHILS # (AUTO) 0.2 10^3/uL (0.0-0.6); ABSOLUTE MONOCYTES (AUTO) 1.1 10^3/uL (0.1-1.4); ABSOLUTE NEUT (AUTO) 8.9 10^3/uL (1.7-8.2); BASOPHILS % (AUTO) 0.4 % (0-2); EOSINOPHILS % (AUTO) 1.8 % (0-6); HEMATOCRIT 38.8 % (37.9-51.0); HEMOGLOBIN 13.4 g/dL (13.5-17.0); HGB HCT DIFFERENCE 1.4; LYMPHOCYTES % (AUTO) 8.6 % (13-45); MEAN CORPUSCULAR HEMOGLOBIN 29.8 pg (27.0-33.4); MEAN CORPUSCULAR HGB CONC 34.5 g/dL (32.0-36.0); MEAN CORPUSCULAR VOLUME 87 fl (80-97); MONOCYTES % (AUTO) 9.9 % (3-13); RED BLOOD COUNT 4.49 10^6/uL (4.35-5.55); RED CELL DISTRIBUTION WIDTH 13.3 % (11.5-14.0); SEGMENTED NEUTROPHILS % (AUTO) 79.3 % (42-78); WHITE BLOOD COUNT 11.2 10^3/uL (4.0-10.5)
[2016-12-31] MEDS: METRONIDAZOLE 500 MG/NS RTU 100 ML IV SCH ×4 (05:31→23:53)
[2016-12-31] MEDS: LEVOFLOXACIN 750 MG/D5W RTU 750 MG/150 ML RTUPB IV SCH (09:07)
[2016-12-31] MEDS: NORMAL SALINE 1000 ML 1,000 ML IV PRN (12:07)
[2017-01-01 04:51] LABS: ABSOLUTE BASOPHILS # (AUTO) 0.1 10^3/uL (0.0-0.2); ABSOLUTE EOSINOPHILS # (AUTO) 0.2 10^3/uL (0.0-0.6); ABSOLUTE LYMPHOCYTES (AUTO) 1.2 10^3/uL (0.5-4.7); ABSOLUTE MONOCYTES (AUTO) 1.1 10^3/uL (0.1-1.4); ABSOLUTE NEUT (AUTO) 11.4 10^3/uL (1.7-8.2); BASOPHILS % (AUTO) 0.5 % (0-2); EOSINOPHILS % (AUTO) 1.4 % (0-6); HEMATOCRIT 42.6 % (37.9-51.0); HEMOGLOBIN 14.9 g/dL (13.5-17.0); HGB HCT DIFFERENCE 2.1; LYMPHOCYTES % (AUTO) 8.6 % (13-45); MEAN CORPUSCULAR VOLUME 86 fl (80-97); MONOCYTES % (AUTO) 8.1 % (3-13); RED BLOOD COUNT 4.96 10^6/uL (4.35-5.55); RED CELL DISTRIBUTION WIDTH 13.6 % (11.5-14.0); SEGMENTED NEUTROPHILS % (AUTO) 81.4 % (42-78); WHITE BLOOD COUNT 14.1 10^3/uL (4.0-10.5)
[2017-01-01 04:55] LABS: ANION GAP 11 (5-19); BLOOD UREA NITROGEN 12 mg/dL (7-20); CALCIUM 8.3 mg/dL (8.4-10.2); CARBON DIOXIDE 17 mmol/L (22-30); CHLORIDE 109 mmol/L (98-107); CREATININE RESULT 0.54 mg/dL (0.52-1.25); GLUCOSE 92 mg/dL (75-110); POTASSIUM 4.1 mmol/L (3.6-5.0); SODIUM 137.1 mmol/L (137-145)
[2017-01-01] MEDS: METRONIDAZOLE 500 MG/NS RTU 100 ML IV SCH ×4 (05:00→23:26)
[2017-01-01] MEDS: PANTOPRAZOLE SODIUM 40 MG VIAL IV SCH (09:22)
[2017-01-01] MEDS: LEVOFLOXACIN 750 MG/D5W RTU 750 MG/150 ML RTUPB IV SCH (09:23)
--- NOTE | 2017-01-01 13:53 | PDOC PROGRESS REPORT ---
Subjective Progress Note for:: 01/01/17 Subjective:: pain better Physical Exam Vital Signs: Temp Pulse Resp BP Pulse Ox 97.7 F 67 20 154/83 H 97 01/01/17 11:40 01/01/17 11:40 01/01/17 12:00 01/01/17 11:40 01/01/17 12:00 Pulse Oximeter Continuous Start: 12/28/16 11: 08 Freq: RTQ4 Status: Complete Document 12/31/16 15:12 LDA (Rec: 12/31/16 15:13 LDA [email or web address]) Pulse Oximetry Assessment Oxygen Saturation (92-100) 98 Oxygen Delivery Method Room Air Fraction of Inspired Oxygen (FIO2) 211 Equipment Usage Equipment in Use Continuous Pulse Oximeter 24 Hour Charge Charge Now Continuous SpO2 Machine # 2 Intake & Output 12/31/16 01/01/17 01/02/17 06:59 06:59 06:59 Intake Total 1660 3100 Output Total 1360 3180 50 Balance 300 -80 -50 GI/Abdominal exam: PRESENT: other - Ileus - slowly resolving Gas in the colostomy bag PO clear liquids Ambulate Results Laboratory Results: 01/01/17 04:15 01/01/17 04:15 01/01/17 01/01/17 04:15 04:15 WBC 14.1 H RBC 4.96 Hgb 14.9 Hct 42.6 MCV 86 MCH 30.0 MCHC 35.0 RDW 13.6 Plt Count 329 Seg Neutrophils % 81.4 H Lymphocytes % 8.6 L Monocytes % 8.1 Eosinophils % 1.4 Basophils % 0.5 Absolute Neutrophils 11.4 H Absolute Lymphocytes 1.2 Absolute Monocytes 1.1 Absolute Eosinophils 0.2 Absolute Basophils 0.1 Sodium 137.1 Potassium 4.1 Chloride 109 H Carbon Dioxide 17 L Anion Gap 11 BUN 12 Creatinine 0.54 Est GFR ( Amer) > 60 Est GFR (Non-Af Amer) > 60 Glucose 92 Calcium 8.3 L Impressions: Abdomen/Pelvis CT 12/27/16 13:33 IMPRESSION: 1. NUMEROUS SIGMOID DIVERTICULI. POSSIBLE MILD SIGMOID DIVERTICULITIS. 2. A FEW TINY BUBBLES OF FREE AIR PRESENT UNDER THE RIGHT AND LEFT HEMIDIAPHRAGM. NO OBVIOUS SOURCE ALTHOUGH MAY BE RELATED TO SIGMOID DIVERTICULITIS. 3. NO OTHER SIGNIFICANT OR ACUTE PROCESS IN THE ABDOMEN OR PELVIS. KUB X-Ray 12/28/16 02:13 IMPRESSION: NO RADIOGRAPHIC EVIDENCE FOR ACUTE ABDOMINAL DISEASE. NG tube. Small left lower lobar atelectasis or scar.
[2017-01-01] MEDS: NORMAL SALINE 1000 ML 1,000 ML IV PRN (18:10)
[2017-01-02 05:18] LABS: HEMATOCRIT 38.1 % (37.9-51.0); HEMOGLOBIN 13.3 g/dL (13.5-17.0); HGB HCT DIFFERENCE 1.8; MEAN CORPUSCULAR HGB CONC 34.9 g/dL (32.0-36.0); MEAN CORPUSCULAR VOLUME 86 fl (80-97); RED BLOOD COUNT 4.42 10^6/uL (4.35-5.55); RED CELL DISTRIBUTION WIDTH 13.5 % (11.5-14.0); WHITE BLOOD COUNT 11.8 10^3/uL (4.0-10.5)
[2017-01-02] MEDS: METRONIDAZOLE 500 MG/NS RTU 100 ML IV SCH ×3 (05:38→17:14)
[2017-01-02] MEDS: NORMAL SALINE 1000 ML 1,000 ML IV PRN ×2 (05:38→21:17)
[2017-01-02 05:54] LABS: ANION GAP 8 (5-19); BLOOD UREA NITROGEN 12 mg/dL (7-20); CALCIUM 8.2 mg/dL (8.4-10.2); CARBON DIOXIDE 23 mmol/L (22-30); CHLORIDE 106 mmol/L (98-107); CREATININE RESULT 0.56 mg/dL (0.52-1.25); GLUCOSE 98 mg/dL (75-110); POTASSIUM 3.8 mmol/L (3.6-5.0); SODIUM 136.7 mmol/L (137-145)
[2017-01-02] MEDS: LEVOFLOXACIN 750 MG/D5W RTU 750 MG/150 ML RTUPB IV SCH (09:33)
[2017-01-02] MEDS: PANTOPRAZOLE SODIUM 40 MG VIAL IV SCH (09:33)
--- NOTE | 2017-01-02 14:22 | PDOC PROGRESS REPORT ---
Subjective Progress Note for:: 01/02/17 Subjective:: Patient feeling reasonably well, having ostomy output. Taking in the halls. He is tolerating full liquids Physical Exam Vital Signs: Temp Pulse Resp BP Pulse Ox 98.3 F 54 L 16 148/85 H 98 01/02/17 11:54 01/02/17 11:54 01/02/17 12:00 01/02/17 11:54 01/02/17 12:00 Pulse Oximeter Continuous Start: 12/28/16 11: 08 Freq: RTQ4 Status: Complete Document 12/31/16 15:12 LDA (Rec: 12/31/16 15:13 LDA [email or web address]) Pulse Oximetry Assessment Oxygen Saturation (92-100) 98 Oxygen Delivery Method Room Air Fraction of Inspired Oxygen (FIO2) 211 Equipment Usage Equipment in Use Continuous Pulse Oximeter 24 Hour Charge Charge Now Continuous SpO2 Machine # 2 Intake & Output 01/01/17 01/02/17 01/03/17 06:59 06:59 06:59 Intake Total 3100 3800 Output Total 3180 1590 100 Balance -80 2210 -100 Weight 89 kg General appearance: PRESENT: no acute distress GI/Abdominal exam: PRESENT: other - Drains removed; ostomy appliance being refitted by staff there is moderate amount of edema to the ostomy itself. Midline wound incision and fabrice still intact with no purulent discharge. Results Laboratory Results: 01/02/17 04:48 01/02/17 04:48 01/02/17 01/02/17 04:48 04:48 WBC 11.8 H RBC 4.42 Hgb 13.3 L Hct 38.1 MCV 86 MCH 30.0 MCHC 34.9 RDW 13.5 Plt Count 314 Sodium 136.7 L Potassium 3.8 Chloride 106 Carbon Dioxide 23 Anion Gap 8 BUN 12 Creatinine 0.56 Est GFR ( Amer) > 60 Est GFR (Non-Af Amer) > 60 Glucose 98 Calcium 8.2 L 12/28/16 06:56 Blood Blood Culture - Final NO GROWTH IN 5 DAYS 12/28/16 05:49 Blood Blood Culture - Final NO GROWTH IN 5 DAYS Impressions: Abdomen/Pelvis CT 12/27/16 13:33 IMPRESSION: 1. NUMEROUS SIGMOID DIVERTICULI. POSSIBLE MILD SIGMOID DIVERTICULITIS. 2. A FEW TINY BUBBLES OF FREE AIR PRESENT UNDER THE RIGHT AND LEFT HEMIDIAPHRAGM. NO OBVIOUS SOURCE ALTHOUGH MAY BE RELATED TO SIGMOID DIVERTICULITIS. 3. NO OTHER SIGNIFICANT OR ACUTE PROCESS IN THE ABDOMEN OR PELVIS. KUB X-Ray 12/28/16 02:13 IMPRESSION: NO RADIOGRAPHIC EVIDENCE FOR ACUTE ABDOMINAL DISEASE. NG tube. Small left lower lobar atelectasis or scar. Assessment & Plan - Diagnosis (1) Perforated sigmoid colon Is this a current diagnosis for this admission?: YesPlan: Now 5 days status post exploratory laparotomy, sigmoid colectomy, colostomy Piyush procedure for complicated diverticulitis. Doing reasonably well tolerating a diet with good ostomy output. Drains out; remains on intravenous antibiotics. Plan: 1. We will start Colace stool softener 2. Monitor urine output; urine appears rather concentrated today. Keep intravenous fluids going 3. Benign path report with patient and family. 4. Hopefully can advance diet and switch Patient to p.o. antibiotics in the morning.
[2017-01-02] MEDS: DOCUSATE SODIUM 100 MG CAPSULE PO SCH (17:14)
[2017-01-02] MEDS: HYDROMORPHONE HCL 30 MG/60 ML RTUINJ IV PRN (17:15)
[2017-01-02] MEDS: OXYCODONE-ACETAMINOPHEN 5-325 MG TABLET PO PRN (21:18)
[2017-01-03] MEDS: METRONIDAZOLE 500 MG/NS RTU 100 ML IV SCH ×4 (00:08→18:04)
[2017-01-03] MEDS: KETOROLAC TROMETHAMINE INJ/PF 30 MG/1 ML SDV IV PRN ×2 (01:40→08:38)
--- NOTE | 2017-01-03 09:05 | PROGRESS NOTE E ---
Progress Note NAME: JENNY KOWALSKI : 1975 AGE: 41Y DATE: 01/03/2017 ROOM: 532 SUBJECTIVE: Patient is post colon resection for acute diverticulitis with end sigmoid colostomy. Colostomy this morning has not drained anything yet. Just a small amount of liquid. However, his abdomen is soft and nondistended. Incision site healing well. PLAN: Start him on soft diet today, and also if the colostomy functions better, than possibly discharge today. DICTATING PHYSICIAN: LUX WELLS M.D. [id number] [id number] PHY#: [id number] ID: [id number] JOB#: [id number] ACCT: [id number] cc: > MTDD
[2017-01-03] MEDS: LEVOFLOXACIN 750 MG/D5W RTU 750 MG/150 ML RTUPB IV SCH (09:43)
[2017-01-03] MEDS: PANTOPRAZOLE SODIUM 40 MG VIAL IV SCH (09:43)
[2017-01-03] MEDS: DOCUSATE SODIUM 100 MG CAPSULE PO SCH ×2 (09:44→18:04)
[2017-01-03] MEDS: NORMAL SALINE 1000 ML 1,000 ML IV PRN (09:44)
[2017-01-03 12:15] VITALS: BP 139/78
[2017-01-03] MEDS: OXYCODONE-ACETAMINOPHEN 5-325 MG TABLET PO PRN (17:59)
--- NOTE | 2017-01-03 20:18 | DISCHARGE SUMMARY E ---
Discharge Summary NAME: JENNY KOWALSKI : 1975 AGE: 41Y ADMITTED: 12/28/2016 DISCHARGED: 01/03/2017 PROCEDURE DONE: 12/27/2016 - Exploratory laparotomy, sigmoidectomy, and Piyush's pouch, incidental appendectomy and descending end colostomy. SURGEON: Dr. Sierra DIAGNOSIS: Perforated sigmoid colon with peritonitis. DISCHARGE DATE: 01/03/2017 HOSPITAL COURSE: This is a 41-year-old male who complained of abdominal pains and seen in the emergency room, noted to have free intraperitoneal air with peritonitis with sigmoid diverticulitis. Patient immediately underwent exploratory laparotomy, sigmoidectomy, Piyush's pouch with descending colostomy and incidental appendectomy on 12/27. Postoperatively patient gradually improved and tolerated his diet well on the day of discharge on 01/03/17. He finished a course of IV antibiotics. He is advised not to do any lifting more than 10 pounds for the next week or until seen in the Surgical Clinic in about a week. He can have a regular diet as tolerated. A prescription for Percocet was given to take p.r.n. every 6 hours for pain. The incision site is healing well and the colostomy is functioning well. He will have a visiting nurse see him at home for colostomy care. He can take a shower with a colostomy bag in place. DICTATING PHYSICIAN: LUX WELLS M.D. [id number] PHY#: [id number] ID: [id number] JOB#: [id number] ACCT: [id number] cc:Onelia KING M.D. >
== END 2017-01-03 18:19 | disposition home health service (06) | DRG 330 ==
LOC: ER 13:13 → UNDOADMIN 16:12 → EH 16:12 → UNDOADMIN 12-28 02:28 → EH 12-28 02:28 → 5 12-28 03:45 → EH 12-28 03:45 → 5 12-29 13:56
PROVIDERS: ATTEND Surgery
PROC: 0DJD4ZZ Inspection of Lower Intestinal Tract, Percutaneous Endoscopic Approach (ICD-10-PCS; 2016-12-27)
PROC: 0DTJ0ZZ Resection of Appendix, Open Approach (ICD-10-PCS; 2016-12-27)
PROC: 0D1N0Z4 Bypass Sigmoid Colon to Cutaneous, Open Approach (ICD-10-PCS; 2016-12-27)
PROC: 0DTN0ZZ Resection of Sigmoid Colon, Open Approach (ICD-10-PCS; principal; 2016-12-27 18:00)
DX: K57.20 Diverticulitis of large intestine with perforation and abscess without bleeding (principal); Z53.31 Laparoscopic surgical procedure converted to open procedure; M10.9 Gout, unspecified; F90.9 Attention-deficit hyperactivity disorder, unspecified type; F17.200 Nicotine dependence, unspecified, uncomplicated
CPT/HCPCS: 36415; 74000; 74176; 790; 80048; 80053; 81001; 82272; 85025; 85027; 87040; 87070; 87075; 87086; 87101; 87205; 88304; 88307; 94762; 96365; 96368; 96375; 99285; J0330; J1100; J1170; J1885; J1956; J2250; J2270; J2405; J2704; J3010; J3490; J7030; S0164

== ENCOUNTER 2017-02-13 17:46 | Emergency (ER) | payer SELFPAY ==
[2017-02-13 18:02] VITALS: BP 145/83
[2017-02-13] MEDS ORDERED: OXYCODONE-ACETAMINOPHEN 5-325 MG TABLET PO ONE (18:14)
--- NOTE | 2017-02-13 18:15 | ER Document Report ---
ED Medical Screen (RME) - General Chief Complaint: Post Surgical Pain Stated Complaint: POST SURGERY PAIN Time Seen by Provider: 02/13/17 18:12 Mode of Arrival: Ambulatory Information source: Patient TRAVEL OUTSIDE OF THE [place] IN LAST 30 DAYS: No - HPI Patient complains to provider of: Incision site pain, swelling, redness Notes: 02/13/17 18:14 Patient is a 41-year-old male presenting to the emergency room today complaining of pain with swelling and redness at his incision site on his lower abdomen, patient had a bowel resection surgery on December 27 secondary to perforated diverticulitis, over the past week he has developed symptoms at the incision site stating that there is occasional past drainage as well - Related Data Allergies/Adverse Reactions: No Known Allergies Allergy (Verified 02/13/17 18:01) Past Medical History - Past Medical History Cardiac Medical History: Denies: Hx Coronary Artery Disease, Hx Heart Attack, Hx Hypertension Pulmonary Medical History: Reports: Hx Bronchitis, Hx Pneumonia Denies: Hx Asthma, Hx COPD Neurological Medical History: Denies: Hx Cerebrovascular Accident, Hx Seizures Renal/ Medical History: Reports: Hx Kidney Stones. Denies: Hx Peritoneal Dialysis GI Medical History: Reports: Hx Ulcer Musculoskeltal Medical History: Denies Hx Arthritis, Reports Hx Gout Psychiatric Medical History: Reports: Hx Attention Deficit Hyperactivity Disorder Past Surgical History: Denies: Hx Pacemaker - Immunizations Immunizations up to date: Yes Hx Diphtheria, Pertussis, Tetanus Vaccination: Yes Physical Exam - Vital signs Vitals: Temp Pulse Resp BP Pulse Ox 98.5 F 82 20 145/83 H 98 02/13/17 18:00 02/13/17 18:00 02/13/17 18:00 02/13/17 18:00 02/13/17 18:00 Course - Vital Signs Vital signs: Temp Pulse Resp BP Pulse Ox 98.5 F 82 20 145/83 H 98 02/13/17 18:00 02/13/17 18:00 02/13/17 18:00 02/13/17 18:00 02/13/17 18:00
[2017-02-13 19:06] LABS: ABSOLUTE BASOPHILS # (AUTO) 0.1 10^3/uL (0.0-0.2); ABSOLUTE EOSINOPHILS # (AUTO) 0.1 10^3/uL (0.0-0.6); ABSOLUTE LYMPHOCYTES (AUTO) 2.1 10^3/uL (0.5-4.7); ABSOLUTE MONOCYTES (AUTO) 0.9 10^3/uL (0.1-1.4); ABSOLUTE NEUT (AUTO) 6.5 10^3/uL (1.7-8.2); BASOPHILS % (AUTO) 0.9 % (0-2); EOSINOPHILS % (AUTO) 1.5 % (0-6); HEMATOCRIT 47.9 % (37.9-51.0); HEMOGLOBIN 16.3 g/dL (13.5-17.0); MEAN CORPUSCULAR HEMOGLOBIN 29.8 pg (27.0-33.4); MEAN CORPUSCULAR VOLUME 88 fl (80-97); MONOCYTES % (AUTO) 8.9 % (3-13); RED BLOOD COUNT 5.46 10^6/uL (4.35-5.55); RED CELL DISTRIBUTION WIDTH 13.8 % (11.5-14.0); SEGMENTED NEUTROPHILS % (AUTO) 66.7 % (42-78); WHITE BLOOD COUNT 9.8 10^3/uL (4.0-10.5)
--- NOTE | 2017-02-13 19:18 | RADIOLOGY REPORT (SQ) ---
EXAM DESCRIPTION: U/S NON-OB PELVIS LTD W/O DOP COMPLETED DATE/TIME: 02/13/2017 7:08 pm REASON FOR STUDY: incision site pain COMPARISON: None. TECHNIQUE: Dynamic and static grayscale images acquired of the localized site of clinical concern an d recorded on PACS. Additional selected color Doppler and spectral images recorded. SITE OF CONCERN: Incision site in the midline of the pelvis LIMITATIONS: None. FINDINGS: SKIN AND SUBCUTANEOUS TISSUES: No masses. No fluid collections. No edema. No foreign kaitlynn s. What is felt represent a surgical scar is identified. DEEP SOFT TISSUES/MUSCLES: No masses. No fluid collections. No edema. VASCULAR: No increased or decreased vascularity. No occlusions. OTHER: No other significant finding. IMPRESSION: NO SOFT TISSUE MASS, FLUID COLLECTION, OR FOREIGN BODY. TECHNICAL DOCUMENTATION: JOB ID: [id number] [employer]- All Rights Reserved
[2017-02-13 19:26] LABS: ALANINE AMINOTRANSFERASE 42 U/L (21-72); ALBUMIN 4.8 g/dL (3.5-5.0); ALKALINE PHOSPHATASE 97 U/L (38-126); ANION GAP 14 (5-19); ASPARTATE AMINO TRANSFERASE 19 U/L (17-59); BILIRUBIN,DIRECT 0.3 mg/dL (0.0-0.4); BILIRUBIN,TOTAL 0.5 mg/dL (0.2-1.3); BLOOD UREA NITROGEN 9 mg/dL (7-20); CALCIUM 10.3 mg/dL (8.4-10.2); CARBON DIOXIDE 24 mmol/L (22-30); CHLORIDE 103 mmol/L (98-107); CREATININE RESULT 0.78 mg/dL (0.52-1.25); GLUCOSE 74 mg/dL (75-110); POTASSIUM 4.7 mmol/L (3.6-5.0); SODIUM 141.1 mmol/L (137-145); TOTAL PROTEIN 7.7 g/dL (6.3-8.2)
--- NOTE | 2017-02-13 19:48 | ER Document Report ---
ED Skin Rash/Insect Bite/Abscs - General Chief Complaint: Post Surgical Pain Stated Complaint: POST SURGERY PAIN Time Seen by Provider: 02/13/17 18:12 Mode of Arrival: Ambulatory Information source: Patient TRAVEL OUTSIDE OF THE [place] IN LAST 30 DAYS: No - HPI Patient complains to provider of: Tender/swollen area Onset/Duration: Gradual Quality of pain: Achy Skin Character: Erythema, Tenderness Skin Temperature: Warm Quality of rash: Painful Notes: 02/13/17 18:14 Patient is a 41-year-old male presenting to the emergency room today complaining of pain with swelling and redness at his incision site on his lower abdomen, patient had a bowel resection surgery on December 27 secondary to perforated diverticulitis, over the past week he has developed symptoms at the incision site stating that there is occasional past drainage as well - Related Data Allergies/Adverse Reactions: No Known Allergies Allergy (Verified 02/13/17 18:01) Past Medical History - General Information source: Patient - Social History Smoking Status: Current Every Day Smoker Chew tobacco use (# tins/day): No Frequency of alcohol use: None Drug Abuse: Marijuana Family History: Reviewed & Not Pertinent, DM, Malignancy - Past Medical History Cardiac Medical History: Denies: Hx Coronary Artery Disease, Hx Heart Attack, Hx Hypertension Pulmonary Medical History: Reports: Hx Bronchitis, Hx Pneumonia Denies: Hx Asthma, Hx COPD Neurological Medical History: Denies: Hx Cerebrovascular Accident, Hx Seizures Renal/ Medical History: Reports: Hx Kidney Stones. Denies: Hx Peritoneal Dialysis GI Medical History: Reports: Hx Ulcer Musculoskeltal Medical History: Denies Hx Arthritis, Reports Hx Gout Psychiatric Medical History: Reports: Hx Attention Deficit Hyperactivity Disorder Past Surgical History: Reports: Hx Abdominal Surgery, Hx Appendectomy, Hx Bowel Surgery. Denies: Hx Pacemaker - Immunizations Immunizations up to date: Yes Hx Diphtheria, Pertussis, Tetanus Vaccination: Yes Review of Systems - Review of Systems Constitutional: No symptoms reported EENT: No symptoms reported Cardiovascular: No symptoms reported Respiratory: No symptoms reported Gastrointestinal: No symptoms reported Genitourinary: No symptoms reported Male Genitourinary: No symptoms reported Musculoskeletal: No symptoms reported Skin: See HPI Hematologic/Lymphatic: No symptoms reported Neurological/Psychological: No symptoms reported -: Yes All other systems reviewed and negative Physical Exam - Vital signs Vitals: Temp Pulse Resp BP Pulse Ox 98.5 F 82 20 145/83 H 98 02/13/17 18:00 02/13/17 18:00 02/13/17 18:00 02/13/17 18:00 02/13/17 18:00 - Notes Notes: - General General appearance: Appears well, Alert In distress: None - HEENT Head: Normocephalic, Atraumatic Eyes: Normal Conjunctiva: Normal Extraocular movements intact: Yes Eyelashes: Normal Pupils: PERRL - Respiratory Respiratory status: No respiratory distress - Cardiovascular Rhythm: Regular - Abdominal Inspection: Colostomy bag present, in the lower abdomen/suprapubic area along the incision there is a small area of erythema with increased warmth and tenderness, no active drainage, no fluctuance - Back Back: Normal - Extremities General upper extremity: Normal inspection General lower extremity: Normal inspection - Neurological Neuro grossly intact: Yes Orientation: AAOx4 Pax Coma Scale Eye Opening: Spontaneous Yuliana Coma Scale Verbal: Oriented Pax Coma Scale Motor: Obeys Commands Pax Coma Scale Total: 15 - Psychological Associated symptoms: Normal affect, Normal mood - Skin Skin Temperature: Warm Skin Moisture: Dry Skin Color: Normal Course - Re-evaluation Re-evalutation: 02/13/17 20:03 Lab and imaging findings are unremarkable, I am concerned that patient may be developing an early abscess and/or cellulitis at the inferior portion of his incision, therefore he was started on antibiotics and provided with pain medication and advised to follow-up with surgeon within the next week or return if symptoms worsen, patient acknowledges understanding and agreement with this plan - Vital Signs Vital signs: Temp Pulse Resp BP Pulse Ox 98.5 F 82 20 145/83 H 98 02/13/17 18:00 02/13/17 18:00 02/13/17 18:00 02/13/17 18:00 02/13/17 18:00 - Laboratory Result Diagrams: 02/13/17 18:43 02/13/17 18:43 Laboratory results interpreted by me: 02/13/17 18:43 Glucose 74 L Calcium 10.3 H - Diagnostic Test Radiology reviewed: Image reviewed, Reports reviewed Discharge - Discharge Clinical Impression: Cellulitis Qualifiers: Site of cellulitis: unspecified site Qualified Code(s): L03.90 - Cellulitis, unspecified Condition: Stable Disposition: HOME, SELF-CARE Instructions: Cellulitis ([facility]) Additional Instructions: Follow up with your primary care provider in one to 2 days. Return to the emergency room immediately if symptoms worsen or any additional concerns. Prescriptions: Oxycodone HCl/Acetaminophen [Percocet 5-325 mg Tablet] 1 - 2 tab PO ASDIR PRN # 15 tablet PRN Reason: Sulfamethoxazole/Trimethoprim [Bactrim Ds Tablet] 1 each PO BID #20 tablet
== END 2017-02-13 20:05 | disposition home or self-care (01) ==
LOC: ER 17:46
DX: L03.90 Cellulitis, unspecified (principal); R10.30 Lower abdominal pain, unspecified; G89.18 Other acute postprocedural pain; F17.200 Nicotine dependence, unspecified, uncomplicated
CPT/HCPCS: 36415; 76857; 80053; 85025; 87040; 99284

== ENCOUNTER 2018-07-25 07:37 | Inpatient (IN) | payer OTHER ==
[2018-07-18 10:47] LABS: HEMATOCRIT 47.1 % (37.9-51.0); HEMOGLOBIN 16.5 g/dL (13.5-17.0); MEAN CORPUSCULAR HEMOGLOBIN 30.3 pg (27.0-33.4); MEAN CORPUSCULAR VOLUME 87 fl (80-97); PLATELET COUNT 322 10^3/uL (150-450); RED BLOOD COUNT 5.44 10^6/uL (4.35-5.55); RED CELL DISTRIBUTION WIDTH 13.9 % (11.5-14.0); WHITE BLOOD COUNT 10.8 10^3/uL (4.0-10.5)
[2018-07-18 11:13] LABS: ANION GAP 8 (5-19); BLOOD UREA NITROGEN 9 mg/dL (7-20); CALCIUM 9.7 mg/dL (8.4-10.2); CARBON DIOXIDE 28 mmol/L (22-30); CHLORIDE 105 mmol/L (98-107); GLUCOSE 74 mg/dL (75-110); POTASSIUM 4.9 mmol/L (3.6-5.0); SODIUM 140.6 mmol/L (137-145)
[~2018-07-25 07:37] MED LIST: LACTATED RINGERS 1000 ML IV PRN; LIDOCAINE 0.5% INJ-PF (5 MG/ML) 50 ML SDV SUBCUT PRN; METRONIDAZOLE 500 MG/NS RTU 500 MG/100 ML RTUPB IV PRN
[2018-07-25] MEDS ORDERED: METRONIDAZOLE 500 MG/NS RTU 500 MG/100 ML RTUPB IV ONE (09:12)
[2018-07-25] MEDS ORDERED: PROMETHAZINE HCL INJ 25 MG/1 ML VIAL ONE (09:43)
[2018-07-25] MEDS ORDERED: MIDAZOLAM 2 MG/2 ML INJ ONE (09:43)
[2018-07-25] MEDS ORDERED: BUPIVACAINE INJ/PF LIPOSOME/PF 266 MG/20 ML SDV ONE (09:43)
[2018-07-25] MEDS ORDERED: BUPIVACAINE HCL 0.25 % INJ/PF (2.5 MG/1 ML) 30 ML VIAL ONE (09:43)
[2018-07-25] MEDS ORDERED: FENTANYL CITRATE INJ/PF 250 MCG/5 ML AMPULE ONE ×2 (09:43→10:49)
[2018-07-25] MEDS ORDERED: HYDROMORPHONE HCL INJ/PF 2 MG/ML AMPULE ONE (09:44)
[2018-07-25] MEDS ORDERED: ACETAMINOPHEN 1,000 MG/100 ML RTUPB IV ONE (09:44)
[2018-07-25] MEDS ORDERED: PROPOFOL INJ 200 MG/20 ML VIAL IV ONE (09:44)
[2018-07-25] MEDS ORDERED: DEXAMETHASONE SOD PHOSPHATE INJ 4 MG/1 ML VIAL ONE (09:44)
[2018-07-25] MEDS ORDERED: EPHEDRINE SULFATE INJ 50 MG/1 ML AMPULE ONE (09:44)
[2018-07-25] MEDS ORDERED: ONDANSETRON HCL INJ/PF 4 MG/2 ML SDV ONE (09:44)
[2018-07-25] MEDS ORDERED: FENTANYL CITRATE INJ/PF 100 MCG/2 ML AMPUL IV PRN ×3 (10:46)
[2018-07-25] MEDS ORDERED: PROMETHAZINE HCL INJ 25 MG/1 ML VIAL IV PRN ×2 (10:46)
[2018-07-25] MEDS ORDERED: MORPHINE SULFATE 10 MG/ML INJ IV PRN (10:46)
[2018-07-25] MEDS ORDERED: DIPHENHYDRAMINE HCL 50 MG/ML VIAL IV PRN (10:46)
[2018-07-25] MEDS ORDERED: MEPERIDINE HCL/PF INJ 25 MG/1 ML DISP.SYRIN IV PRN (10:46)
[2018-07-25] MEDS ORDERED: IBUPROFEN 800 MG in NORMAL SALINE 250 ML IV ONE (11:30)
[2018-07-25] MEDS ORDERED: SUCCINYLCHOLINE CHLORIDE INJ 200 MG/10 ML VIAL ONE (11:42)
[2018-07-25] MEDS ORDERED: KETOROLAC TROMETHAMINE 60 MG/2 ML SDV ONE (11:42)
[2018-07-25] MEDS ORDERED: ROCURONIUM BROMIDE INJ 50 MG/5 ML VIAL IV ONE (11:42)
[2018-07-25] MEDS ORDERED: DEXTROSE 50%-WATER 25 GM/50 ML DISP.SYRIN IV PRN ×2 (14:17)
[2018-07-25] MEDS ORDERED: GLUCAGON,HUMAN RECOMB 1 MG INJ SUBCUT PRN (14:17)
[2018-07-25] MEDS ORDERED: DEXTROSE 40% GEL 15 GM TUBE PO PRN ×2 (14:17)
--- NOTE | 2018-07-25 14:27 | Operative Report ---
Operative Report DATE OF SURGERY: 07/25/18 PREOPERATIVE DIAGNOSIS: 1. Status post adenoid colectomy with Mendiola's proced ure for complicated diverticulitis. 2. Diversion proctitis POSTOPERATIVE DIAGNOSIS: Same with intra-abdominal adhesions OPERATION: 1. Ostomy takedown. 2. Intraoperative lysis of adhesions. 3. [place]-upper rectal anastomosis with EEA 29 mm stapler SURGEON: CARMELO WATERS 1ST BED SPRING MAKER: JACKY GARZA ANESTHESIA: GA TISSUE REMOVED OR ALTERED: Colostomy components disposed of COMPLICATIONS: None ESTIMATED BLOOD LOSS: 130 cc INTRAOPERATIVE FINDINGS: See below PROCEDURE: Summary of operation The patient is a 43-year-old with a history of a complicated diverticulitis, status post a sigmoid colectomy, colostomy and Mendiola's procedure in December [address] Sierra. Patient now presents for colostomy takedown. As an outpatient patient underwent colonoscopy through the colostomy, and scopic evaluation of the rectal stump. Patient was found to have scattered diverticulosis and diversion proctitis. The patient was felt to be an appropriate candidate for colostomy takedown. The patient was taken to the main holding area to the operating room at [facility] where general anesthesia was induced. The patient was placed in stirrup position, ostomy appliance taken down, and colostomy closed transversely with a 2-0 Prolene suture. A Cedillo catheter was inserted, 18 Kinyarwanda, with drainage of urine. The abdominal wall was clipped of hair, prepped and draped sterile fashion including the genitalia. Instrumentation was set up for open colostomy takedown. Surgical plan and surgical timeout were conducted. The skin around the colostomy was anesthetized with quarter percent Marcaine. The colostomy was now from the surrounding skin with a large #10 blade. The subcutaneous tissue was divided with electrocautery. There appeared to be a redundant loop of colon which had stretched the posterior rectus sheath. This and extensive adhesions made for a rather tedious dissection. Nonetheless in a methodical fashion, is able to take the colostomy down to and into the peritoneal lining. I did amputate the colostomy closure including the 2-0 Prolene suture with the RORY 55 stapler. At this point we evaluated the situation, specifically the patient's anatomy, and patient's acclivity for a low pain threshold; it was apparent patient's consumption of narcotics during the operation that he may be at risk for postoperative pain management. He was at this time that the continuous still operator initiated IV Toradol, and see the medicine. I also decided to make a sincere attempt to take this colostomy down all through the colostomy site. After anesthetizing the parastomal tissue with additional Marcaine, we extended the fascial opening caudad approximately 2 cm, now dividing the anterior posterior sheath. We essentially worked in a methodical fashion using hand-held retractors, blunt and sharp dissection to take down all of the loose adhesions. The sigmoid colon which had been previously removed for left adhesive bands between the lateral pelvic wall and the descending colon and these were taken down sharply all under direct visualization. We directed our attention towards the pelvis and began taking adhesions down bluntly and sharply. Densely we establish Bookwalter retractor system and began mobilizing the small bowel loops out of the left hemipelvis. Of note during the initial operation, the patient's left ureter was identified and looped with a vessel loop. Unfortunately there were adhesions in this area make the dissection somewhat tenuous. Nonetheless we did identify the left ureter and stayed out of its way. Dr. Waters scrubbed out and went below, examined the anal rectal canal, and scope did with a rigid sigmoidoscope. There was mild diversion colitis, but no evidence of obstruction retained feces or mucus. The rigid scope was removed, and the rectal dilators were used to advance up through the anorectal canal all the way into the Mendiola's stump. We could not see the stump from the open abdomen so Dr. Waters scrubbed back in at this point. We now repositioned our Bookwalter retractor system, and found the 2-0 Prolene sutures previously placed on the staple line of the rectal stump. We proceeded in a methodical fashion eventually had the rectal stump very satisfactorily mobilized. In reality this was right at the transition from the sigmoid colon t o the rectum. The peritoneal reflection was violated posteriorly and regions right side. We did not visualize the right ureter. We stayed in midline. We now revisited the left colon, and felt that we had adequate mobilization to perform the anastomosis without tension. Dr. Waters went back down below, and advanced the obturator, specifically the 25 and the [address] up to the staple line of the Mendiola stump. We were satisfied that anastomosis could be performed. We now went back to the operative field, and brought onto the operative field a 29 EEA stapler. We brought on the Ethicon pursestring stapling device, cleared the left colon staple, and deployed the string stapler. Unfortunately after firing this, and securing the suture, the suture broke. So this approach was aborted. I sewed a placement pursestring with a running 3-0 PDS suture. We brought the anvil out onto the field, tucked it into the lumen of the left colon, and secured to the suture and not, satisfied that we had good apposition of the closure onto the stem of the anvil. Dr. Waters went below and advanced the stapling component of the EEA device up into the appropriate position. There was some tortuosity of the upper rectum its transition towards the sigmoid colon. I was able to advance it satisfactorily such that the cut surface of the stapler was just anterior to the rectal stump staple line. The needle was opened up to its appropriate length, and the proximal colon brought down, and the lock, and the device torqued to the appropriate tension. A locking break was removed, stapler fired. The stapler was disengaged and extracted through the patient's rectum. It was done by Dr. Waters on back table found to have 2, intact healthy-appearing donuts. We filled the pelvis up with the water, and our underwriting assistant occluded the left colon proximally, Dr. Waters insufflated the anorectal canal with the rigid sigmoidoscope with sufficient air to distend the anastomosis. We were satisfied with the division of air through the anastomosis, with no evidence of bubbling. We felt the anastomosis was successful. Air was decompressed to the sigmoidoscope, the sigmoidoscope removed Dr. Waters described back in, checked the pelvis for bleeding there was none. There is no evidence of bowel injury. Also noted was a nice lady of the anastomosis against the lateral sidewall and sacral promontory suggesting no tension. Sponge and needle counts are correct. The abdominal wall at the site of the colostomy was closed with multiple #1 PDS sutures in a running, vertically orie nted fashion, first securing the posterior sheath including the peritoneum, then the anterior sheath. A drain was placed in the colostomy site and secured to skin with 2-0 Prolene suture, and the colostomy skin closed with fabrice on a diagonal. Exparel 40 cc dilute solution was injected in subcutaneous tissues. Xeroform 4 x 4's abdominal binder applied. Patient tolerated procedure well. He remained hemodynamically stable throughout the course of the operation. He received approximately 2.6 L of fluid, and made adequate although somewhat concentrated urine. He was extubated and taken to recovery in stable condition. The physician underwriting assistant, Ms. Galvez, provided assistance during this case by: Assisting with retracting tissue, instillation of local anesthesia and closure of skin incisions.
[2018-07-25] MEDS: FENTANYL CITRATE INJ/PF 100 MCG/2 ML AMPUL ONE ×2 (15:05→15:15)
[2018-07-25] MEDS: HYDROMORPHONE HCL 2 MG TABLET PO PRN (17:21)
[2018-07-25] MEDS: ACETAMINOPHEN INJ/PF 1000 MG/100 ML SDV IV SCH ×2 (18:46→23:44)
[2018-07-25] MEDS ORDERED: KETOROLAC TROMETHAMINE INJ/PF 30 MG/1 ML SDV IV SCH (20:17)
[2018-07-25] MEDS: ONDANSETRON HCL INJ/PF 4 MG/2 ML SDV IV PRN (23:44)
[2018-07-26] MEDS: HYDROMORPHONE HCL 2 MG TABLET PO PRN ×5 (00:08→20:39)
[2018-07-26] MEDS: DEXTROSE 5%-LACTATED RINGERS 1,000 ML IV PRN ×2 (05:51→17:05)
[2018-07-26] MEDS: ACETAMINOPHEN INJ/PF 1000 MG/100 ML SDV IV SCH ×3 (05:52→12:08)
[2018-07-26] MEDS: ONDANSETRON HCL INJ/PF 4 MG/2 ML SDV IV PRN (06:15)
[2018-07-26] MEDS: KETOROLAC TROMETHAMINE INJ/PF 30 MG/1 ML SDV IV PRN ×2 (09:46→17:06)
[2018-07-26] MEDS ORDERED: AMPICILLIN SOD/SULBACTAM 3 GM VIAL IV ONE (11:45)
--- NOTE | 2018-07-26 11:46 | PDOC PROGRESS REPORT ---
Subjective Progress Note for:: 07/26/18 Subjective:: Patient had some pain issues overnight, and some nausea but that is resolved. He has not gotten up yet Reason For Visit: COLOSTOMY REVERSAL Physical Exam Vital Signs: Temp Pulse Resp BP Pulse Ox 98.0 F 85 16 157/74 H 96 07/26/18 08:13 07/26/18 08:13 07/26/18 08:13 07/26/18 08:13 07/26/18 08:13 Intake & Output 07/25/18 07/26/18 07/27/18 06:59 06:59 06:59 Intake Total 4040 Output Total 1954 Balance 2084 Weight 84.8 kg General appearance: PRESENT: no acute distress GI/Abdominal exam: PRESENT: other - Dressing intact; 20 cc serosanguineous drainage from the Wilfrido-Garcia. Abdomen appropriately tender Results Laboratory Results: 07/18/18 10:02 07/18/18 10:02 Assessment & Plan - Diagnosis (1) S/P colostomy takedown Is this a current diagnosis for this admission?: Yes Plan: Impression: Patient doing well postoperative day 1 status post colostomy taked own, but stapled anastomosis. Pain management appears to be under control Recommendations: 1. Discontinue Cedillo catheter 2. We will give 1 more dose of Unasyn IV then discontinue 3. Increase pulmonary toilet 4. We will start surgical sips. Discussed with patient and family hazards of narcotics and slowing return of bowel function.
[2018-07-26] MEDS ORDERED: AMPICILLIN SODIUM/SULBACTAM NA 3 GM in NORMAL SALINE 100 ML IV PRN (11:49)
[2018-07-26] MEDS: ACETAMINOPHEN 1,000 MG/100 ML RTUPB IV SCH ×2 (13:43→17:05)
[2018-07-27] MEDS: ACETAMINOPHEN 1,000 MG/100 ML RTUPB IV SCH ×5 (00:05→23:14)
[2018-07-27] MEDS: DEXTROSE 5%-LACTATED RINGERS 1,000 ML IV PRN (03:17)
[2018-07-27] MEDS: HYDROMORPHONE HCL 2 MG TABLET PO PRN (03:17)
[2018-07-27] MEDS: KETOROLAC TROMETHAMINE INJ/PF 30 MG/1 ML SDV IV PRN ×2 (08:55→20:26)
--- NOTE | 2018-07-27 09:37 | PDOC PROGRESS REPORT ---
Subjective Progress Note for:: 07/27/18 Subjective:: Patient has no complaints, had several loose bowel movements and gas; voiding with Cedillo out; no nausea or vomiting. Reason For Visit: COLOSTOMY REVERSAL Physical Exam Vital Signs: Temp Pulse Resp BP Pulse Ox 98.2 F 76 15 132/71 H 96 07/27/18 07:21 07/27/18 07:21 07/27/18 07:21 07/27/18 07:21 07/27/18 07:21 Intake & Output 07/26/18 07/27/18 07/28/18 06:59 06:59 06:59 Intake Total 4040 3170 450 Output Total 1955 15 Balance 5 3155 450 Weight 84.8 kg 84.8 kg General appearance: PRESENT: no acute distress GI/Abdominal exam: PRESENT: other - Dressings removed; colostomy site closure looks good. [place] intact; drain removed. Results Laboratory Results: 07/18/18 10:02 07/18/18 10:02 Assessment & Plan - Diagnosis (1) S/P colostomy takedown Is this a current diagnosis for this admission?: Yes Plan: Impression: Patient is now 2 days status post colostomy takedown the single site, doing well, no complications, tolerating ice chips; pain management under control Recommendations: 1. Start clear liquids 2. Saline lock 3. Shower 4. Anticipate discharge in the next 24-48 hours.
[2018-07-28] MEDS: KETOROLAC TROMETHAMINE INJ/PF 30 MG/1 ML SDV IV PRN ×2 (04:57→11:29)
[2018-07-28] MEDS: ACETAMINOPHEN 1,000 MG/100 ML RTUPB IV SCH ×2 (05:01→11:51)
[2018-07-28 08:52] VITALS: BP 150/83
--- NOTE | 2018-07-28 13:42 | PDOC DISCHARGE SUMMARY ---
General - Admit/Disc Date/PCP Admission Date/Primary Care Provider: 07/25/18 14:17 Discharge Date: 07/28/18 - Discharge Diagnosis (1) Colostomy in place Is this a current diagnosis for this admission?: Yes (2) Sigmoid diverticulitis Is this a current diagnosis for this admission?: No - Additional Information Resuscitation Status: Full Code Discharge Diet: As Tolerated Discharge Activity: No Lifting Over 10 Pounds Home Medications: No Home Medications 07/24/18 History of Present Illness History of Present Illness: JENNY KOWALSKI JR is a 43 year old male with a history of perforated diverticulitis requiring Mendiola's procedure. The patient presented for reversal of his colostomy. The patient underwent surgery on 07/25/2018. The patient was taken to the floor in stable condition after his procedure was completed. Hospital Course Hospital Course: The patient remained in stable condition on the floor. He began tolerating clear liquids, and then full liquids. The patient began having bowel movements. By 07/28/2018 the patient was ambulating, tolerating a diet, his pain was well controlled, he was having bowel movements, and it was felt that he had reached maximal hospital benefit and was fit for discharge. Physical Exam Vital Signs: Temp Pulse Resp BP Pulse Ox 98.6 F 87 18 150/83 H 98 07/28/18 08:00 07/28/18 08:00 07/28/18 08:00 07/28/18 08:00 07/28/18 08:00 Intake & Output 07/27/18 07/28/18 07/29/18 06:59 06:59 06:59 Intake Total 3170 1943 0 Output Total 15 Balance 3155 1943 0 Weight 84.8 kg 84.8 kg Results Laboratory Results: 07/18/18 10:02 07/18/18 10:02 Qualifiers - * PATIENT BEING DISCHARGED WITH ANY OF THE FOLLOWING DIAGNOSIS: No Plan Discharge Plan: Discharge home. Diet as tolerated. Activity: No lifting greater than 10 pounds x 6 weeks after surgery. Follow-up with Dr. Waters at [facility] in 7-10 days. Toradol 10 mg p.o. every 6 hours as needed for pain. Okay to shower. No tub baths or swimming pools times 2 weeks.
== END 2018-07-28 14:20 | disposition home or self-care (01) | DRG 346 ==
LOC: INOR 07:37 → INTOOBSV 07:37 → EDSTATUS 10:30 → OBSVTOIN 14:17 → 5 16:35
PROVIDERS: ADMIT Surgery; ATTEND Surgery
PROC: 0DSL0ZZ Reposition Transverse Colon, Open Approach (ICD-10-PCS; principal; 2018-07-25 10:30)
DX: Z43.3 Encounter for attention to colostomy (principal); Z93.3 Colostomy status; F17.210 Nicotine dependence, cigarettes, uncomplicated; K57.30 Diverticulosis of large intestine without perforation or abscess without bleeding; K62.89 Other specified diseases of anus and rectum; Z83.3 Family history of diabetes mellitus; Z80.0 Family history of malignant neoplasm of digestive organs
CPT/HCPCS: 36415; 80048; 840; 85027; C9290; J0131; J0295; J0330; J1100; J1170; J1741; J1885; J2250; J2405; J2550; J2704; J3010; J3490; J7050

== ENCOUNTER 2018-07-31 20:31 | Inpatient (IN) | payer OTHER ==
--- NOTE | 2018-07-31 21:06 | ER Document Report ---
ED GI/ - General Chief Complaint: Post Surgical Pain Stated Complaint: BODY PAIN,FEVER Time Seen by Provider: 07/31/18 21:06 Mode of Arrival: Ambulatory Information source: Patient Notes: HISTORY OF PRESENT ILLNESS: Patient is a 43-year-old male with a past medical history of diverticulitis status post colostomy placement 2 years ago status post colostomy takedown 2 weeks ago who presents with right-sided abdominal pain with nausea. Patient is status post appendectomy. Location: Right lower quadrant Onset: Gradual Alleviation: None Provocation: Movement Quality: Stabbing, aching Radiation: None Severity: "Severe" Timing: Constant History of abdominal surgery: Yes Associated symptoms: No fevers or chills, does report mild nausea but no vomiting, also reports small amount of bright red blood in his stools Last bowel movement: Today REVIEW OF SYSTEMS: CONSTITUTIONAL : [Denies] fever or chills, no sweats. Denies recent illness. EENT: Denies eye, ear, throat, or mouth pain or symptoms. Denies nasal or sinus congestion. CARDIOVASCULAR: [Denies] chest pain. [Denies] swelling of the legs. RESPIRATORY: [Denies] cough, cold, or chest congestion. [Denies] shortness of breath or difficulty breathing. [Denies] wheezing. GASTROINTESTINAL: [Positive] for abdominal pain. Positive for nausea but no diarrhea. [Denies] constipation. GENITOURINARY: [Denies difficulty urinating, painful urination, burning, frequency, or blood in urine]. [FEMALE GENITOURINARY: Denies vaginal bleeding, abnormal or irregular periods]. MUSCULOSKELETAL: Denies neck or back pain or joint pain or swelling. SKIN: Denies rash or skin lesions. HEMATOLOGIC : Denies easy bruising or bleeding. LYMPHATIC: Denies swollen, enlarged glands. NEUROLOGICAL: Denies altered mental status or loss of consciousness. Denies headache. Denies weakness or paralysis or loss of use of either side. Denies problems with gait or speech. Denies sensory or motor loss. PSYCHIATRIC: Denies anxiety or stress or depression. All other systems reviewed and negative. PHYSICAL EXAMINATION: GENERAL: [Well]-appearing, [well]-nourished and in [no] acute distress. HEAD: Atraumatic, normocephalic. No scalp deformity, depression, or crepitance. EYES: Pupils are [3]mm and equal/round/reactive to light, extraocular movements intact, sclera anicteric, conjunctiva are normal. ENT: Nares patent bilaterally, oropharynx. Moist mucous membranes. No tonsil hypertrophy. NECK: Normal range of motion, supple [without] lymphadenopathy. LUNGS: Breath sounds [present, equal, and clear to auscultation bilaterally]. [No wheezes, rales, or rhonchi]. HEART: [Regular] rate and rhythm [without murmurs, rubs, or gallops.] 2+ peripheral pulses. [Normal] capillary refill. ABDOMEN: Soft and nondistended, no peritoneal signs, moderate tenderness in the right lower quadrant as well as the midline, surgical site in the left lower quadrant is clean/dry/intact without erythema or drainage. Normoactive bowel sounds. No guarding, no rebound. No masses appreciated. [BACK: Normal contour, no midline tenderness. Rectal exam deferred.] [GENITAL/PELVIC: Deferred.] EXTREMITIES: Normal range of motion, [no] pitting or edema. No cyanosis. NEUROLOGICAL: No focal neurological deficits. Moves all extremities spontaneo usly and on command. PSYCH: [Normal] mood, normal affect. [No] suicidal thoughts/ideations. [No] landy ocidal thoughts/ideations. [No] hallucinations. SKIN: Warm, dry, normal turgor, no rashes or lesions noted. ASSESSMENT AND PLAN: This patient is a 43-year-old male who presents with abdominal pain that could be related to recent surgery. 1. Will obtain labs, urine, CT scan, and reassess. 2. Will give IV Fentanyl with Zofran. TRAVEL OUTSIDE OF THE [place] IN LAST 30 DAYS: No - Related Data Allergies/Adverse Reactions: No Known Allergies Allergy (Verified 07/25/18 08:37) Past Medical History - General Information source: Patient - Social History Smoking Status: Current Every Day Smoker Chew tobacco use (# tins/day): No Frequency of alcohol use: None Drug Abuse: Marijuana Lives with: Family Family History: Reviewed & Not Pertinent, DM, Malignancy Patient has suicidal ideation: No Patient has homicidal ideation: No - Past Medical History Cardiac Medical History: Reports: None Denies: Hx Atrial Fibrillation, Hx Congestive Heart Failure, Hx Coronary Artery Disease, Hx Heart Attack, Hx Hypercholesterolemia, Hx Hypertension, Hx Peripheral Vascular Disease, Hx Pulmonary Embolism, Hx Heart Murmur Pulmonary Medical History: Reports: Hx Bronchitis, Hx Pneumonia Denies: Hx Asthma, Hx COPD, Hx Respiratory Failure, Hx Sleep Apnea, Hx Tuberculosis EENT Medical History: Reports: None Neurological Medical History: Reports: None. Denies: Hx Cerebrovascular Accident, Hx Seizures Endocrine Medical History: Reports: None Renal/ Medical History: Reports: Hx Kidney Stones. Denies: Hx Peritoneal Dialysis Malignancy Medical History: Reports None, Denies Hx Lung Cancer GI Medical History: Reports: Hx Gastroesophageal Reflux Disease. Denies: Hx Crohn's Disease, Hx Hiatal Hernia, Hx Irritable Bowel, Hx Liver Failure, Hx Panc reatitis, Hx Ulcer Musculoskeletal Medical History: Reports Hx Arthritis, Denies Hx Fibromyalgia, Reports Hx Gout, Denies Hx Muscular Dystrophy Skin Medical History: Reports None Psychiatric Medical History: Reports: Hx Attention Deficit Hyperactivity Disorder, Hx Post Traumatic Stress Disorder Denies: Hx Bipolar Disorder, Hx Depression, Hx Schizophrenia Traumatic Medical History: Reports: None. Denies: Hx Fractures Infectious Medical History: Reports: None Past Surgical History: Reports: Hx Abdominal Surgery, Hx Appendectomy, Hx Bowel Surgery, Hx Colostomy. Denies: Hx Cholecystectomy, Hx Coronary Artery Bypass Graft, Hx Gastric Bypass Surgery, Hx Herniorrhaphy, Hx Pacemaker - Immunizations Immunizations up to date: Yes Hx Diphtheria, Pertussis, Tetanus Vaccination: Yes Physical Exam - Vital signs Vitals: Resp BP Pulse Ox 14 141/76 H 97 07/31/18 21:24 07/31/18 21:24 07/31/18 21:24 Course - Re-evaluation Re-evalutation: 08/01/18 00:05 Blood work shows elevated white blood cell count of 19,000, hemoglobin less than 10 with a baseline of 15 just [address] scan shows a moderate amount of blood in the pelvis with more of a collection near the anastomosis site, no report of fluid collection consistent with abscess. I have spoken with surgery, who will see the patient, and recommends IV antibiotics. - Vital Signs Vital signs: Temp Pulse Resp BP Pulse Ox 100.3 F 21 H 135/89 H 98 08/01/18 01:33 08/01/18 01:33 08/01/18 01:33 08/01/18 01:33 - Laboratory Result Diagrams: 07/31/18 21:09 07/31/18 21:09 Laboratory results interpreted by me: 07/31/18 07/31/18 21:09 21:09 WBC 18.6 H RBC 3.78 L Hgb 11.5 L Hct 32.7 L Seg Neutrophils % 78.5 H Lymphocytes % 7.4 L Absolute Neutrophils 14.6 H Absolute Monocytes 2.4 H Glucose 114 H Total Bilirubin 2.0 H - Diagnostic Test Radiology reviewed: Image reviewed, Reports reviewed - EKG Interpretation by Me EKG shows normal: Sinus rhythm Rate: Normal Rhythm: NSR [place]/QRS: No: Right axis deviation, Left axis deviation, RBBB, LBBB, IVCD, LAHB/LAFB, LPHB/LPFB, Bifasicular block Voltage: No: Increased voltage, Consistant with LVH, Decreased voltage, Throughout, Limb leads P Waves: No: LUCIAN, LAE, Absent, AV Dissociation, Other Heart block present: No: 1st Degree, Mobitz 1, Mobitz 2, CHB (3rd degree block) When compared to previous EKG there are: No significant change - Consults Dr. Subramanian Time consulted: 00:05 - will see the patient for admission Consulted provider: will come to ER Discharge - Discharge Clinical Impression: Abdominal pain Qualifiers: Abdominal location: right lower quadrant Qualified Code(s): R10.31 - Right lower quadrant pain Post-operative complication Qualifiers: Surgical complication system/body Area: digestive system Surgical complication type: hemorrhage Procedure type: digestive system Qualified Code(s): K91.840 - Postprocedural hemorrhage of a digestive system organ or structure following a digestive system procedure GI bleed Qualifiers: GI bleed type/associated pathology: unspecified gastrointestinal hemorrhage type Qualified Code(s): K92.2 - Gastrointestinal hemorrhage, unspecified Condition: Stable Disposition: ADMITTED INPATIENT Admitting Provider: Surgicalist Unit Admitted: Surgical Floor
[2018-07-31 21:33] LABS: ABSOLUTE BASOPHILS # (AUTO) 0.1 10^3/uL (0.0-0.2); ABSOLUTE EOSINOPHILS # (AUTO) 0.1 10^3/uL (0.0-0.6); ABSOLUTE LYMPHOCYTES (AUTO) 1.4 10^3/uL (0.5-4.7); ABSOLUTE MONOCYTES (AUTO) 2.4 10^3/uL (0.1-1.4); ABSOLUTE NEUT (AUTO) 14.6 10^3/uL (1.7-8.2); BASOPHILS % (AUTO) 0.4 % (0-2); EOSINOPHILS % (AUTO) 0.8 % (0-6); HEMATOCRIT 32.7 % (37.9-51.0); HEMOGLOBIN 11.5 g/dL (13.5-17.0); LYMPHOCYTES % (AUTO) 7.4 % (13-45); MEAN CORPUSCULAR HEMOGLOBIN 30.4 pg (27.0-33.4); MEAN CORPUSCULAR HGB CONC 35.1 g/dL (32.0-36.0); MEAN CORPUSCULAR VOLUME 87 fl (80-97); MONOCYTES % (AUTO) 12.9 % (3-13); PLATELET COUNT 438 10^3/uL (150-450); RED BLOOD COUNT 3.78 10^6/uL (4.35-5.55); RED CELL DISTRIBUTION WIDTH 13.9 % (11.5-14.0); SEGMENTED NEUTROPHILS % (AUTO) 78.5 % (42-78); TOTAL CELLS COUNTED % (AUTO) 100 %; WHITE BLOOD COUNT 18.6 10^3/uL (4.0-10.5)
[2018-07-31 21:43] LABS: ALANINE AMINOTRANSFERASE 34 U/L (21-72); ALBUMIN 3.8 g/dL (3.5-5.0); ALKALINE PHOSPHATASE 78 U/L (38-126); ANION GAP 7 (5-19); ASPARTATE AMINO TRANSFERASE 29 U/L (17-59); BILIRUBIN,DIRECT 0.3 mg/dL (0.0-0.4); BLOOD UREA NITROGEN 15 mg/dL (7-20); CALCIUM 9.4 mg/dL (8.4-10.2); CARBON DIOXIDE 24 mmol/L (22-30); CHLORIDE 107 mmol/L (98-107); GLUCOSE 114 mg/dL (75-110); LIPASE 46.4 U/L (23-300); POTASSIUM 3.8 mmol/L (3.6-5.0); SODIUM 138.4 mmol/L (137-145); TOTAL PROTEIN 6.5 g/dL (6.3-8.2)
[2018-07-31] MEDS ORDERED: FENTANYL CITRATE INJ/PF 100 MCG/2 ML AMPUL IV ONE (21:52)
[2018-07-31] MEDS ORDERED: ONDANSETRON HCL INJ/PF 4 MG/2 ML SDV IV ONE (21:53)
--- NOTE | 2018-07-31 23:55 | RADIOLOGY REPORT (SQ) ---
CLINICAL HISTORY: Abdominal Pain. s/p colon surg, had colostomy reversed 07/25/18 COMPARISON: None. TECHNIQUE: CT ABDOMEN PELVIS WITH IV CONTRAST on 07/31/2018 12:00 AM AUDIO VISUAL MANAGER This exam was performed according to our departmental dose-optimization program, which includes automated exposure control, adjustment of the mA and/or kV according to patient size and/or use of iterative reconstruction technique. FINDINGS: There is bibasilar atelectasis. Abdomen: There is a tiny probable cyst in the posterior right lobe of the liver. There is no biliary dilatation. Gallbladder is normally distended. The pancreas and spleen are normal in appearance. The adrenal glands and kidneys are unremarkable. Abdominal aorta is normal in course and caliber without aneurysm. There is no free air. There is no retroperitoneal adenopathy. Pelvis: There is a left lower quadrant sigmoid colonic anastomosis with large amount of blood surrounding it, extending into the pericolic gutters. Urinary bladder is unremarkable. Appendix is not clearly seen. Left lower quadrant colostomy reversed. Skeleton: There are no acute osseous findings. No suspicious bony lesions. IMPRESSION: Moderate amount of blood within the pelvis near the sigmoid colon anastomosis.
[2018-08-01 00:17] LABS: APPEARANCE,URINE CLEAR; BILIRUBIN,URINE NEGATIVE (NEGATIVE); COLOR,URINE YELLOW; GLUCOSE, URINE NEGATIVE (NEGATIVE); KETONES,URINE NEGATIVE (NEGATIVE); LEUKOCYTE ESTERASE,URINE NEGATIVE (NEGATIVE); NITRITE,URINE NEGATIVE (NEGATIVE); PROTEIN,URINE NEGATIVE (NEGATIVE); URINE SPECIFIC GRAVITY 1.012; UROBILINOGEN,URINE NEGATIVE mg/dL (<2.0)
[2018-08-01] MEDS ORDERED: FENTANYL CITRATE INJ/PF 100 MCG/2 ML AMPUL IV ONE (01:09)
[2018-08-01] MEDS ORDERED: CIPROFLOXACIN 400 MG/D5W RTU 400 MG/200 ML RTUPB IV ONE ×4 (01:10→10:00)
[2018-08-01] MEDS ORDERED: HYDROMORPHONE HCL INJ/PF 2 MG/ML AMPULE IV ONE (01:51)
[2018-08-01] MEDS ORDERED: DEXTROSE 50%-WATER 25 GM/50 ML DISP.SYRIN IV PRN ×2 (01:52)
[2018-08-01] MEDS ORDERED: GLUCAGON,HUMAN RECOMB 1 MG INJ SUBCUT PRN (01:52)
[2018-08-01] MEDS ORDERED: DEXTROSE 40% GEL 15 GM TUBE PO PRN ×2 (01:52)
[2018-08-01] MEDS ORDERED: ONDANSETRON HCL INJ/PF 4 MG/2 ML SDV IV PRN (01:52)
--- NOTE | 2018-08-01 01:52 | PDOC H&P ---
History of Present Illness Admission Date/PCP: 08/01/18 00:31 Patient complains of: Abdominal pain History of Present Illness: JENNY KOWALSKI JR is a 43 year old male who underwent sigmoid resection and incidental appendectomy with end colostomy just over a year ago for diverticulitis. Patient underwent colostomy takedown a week ago. Patient initially did well however today he began to run a fever along with right lower lower quadrant pain along with nausea and malaise. He subsequently came into the ER for further evaluation. Patient has been having couple of soft bowel movements per day. No emesis. Past Medical History Cardiac Medical History: Reports: Hypertension Denies: Atrial Fibrillation, Congestive Heart Failure, Coronary Artery Disease, Myocardial Infarction, Hyperlipidema, Peripheral Vascular Disease, Pulmonary Embolism, Heart Murmur Pulmonary Medical History: Reports: Bronchitis, Pneumonia Denies: Asthma, Chronic Obstructive Pulmonary Disease (COPD), Respiratory F ailure, Sleep Apnea, Tuberculosis Neurological Medical History: Denies: Seizures Malignancy Medical History: Denies: Lung Cancer GI Medical History: Reports: Gastroesophageal Reflux Disease Denies: Crohn's Disease, Hiatal Hernia Musculoskeltal Medical History: Reports: Arthritis, Gout Denies: Fibromyalgia Psychiatric Medical History: Reports: Attention Deficit Hyperactivity Disorder, Post Traumatic Stress Disorder Denies: Bipolar Disorder, Depression Hematology: Denies: Anemia Past Surgical History Past Surgical History: Reports: Appendectomy, Colostomy - Mendiola's procedure for sigmoid diverticulitis, Other - Recent colostomy takedown Denies: Cholecystectomy, Coronary Artery Bypass Graft, Gastric Bypass Surgery, Herniorrhaphy, Pacemaker Social History Smoking Status: Current Every Day Smoker Frequency of Alcohol Use: Rare Hx Recreational Drug Use: Yes Drugs: Marijuana Family History Family History: Reviewed & Not Pertinent, DM, Malignancy Parental Family History Reviewed: Yes - Father with esophageal cancer Children Family History Reviewed: Yes Sibling(s) Family History Reviewed.: Yes Medication/Allergy Home Medications: No Home Medications 07/24/18 Allergies/Adverse Reactions: No Known Allergies Allergy (Verified 07/25/18 08:37) Physical Exam Vital Signs: Temp Pulse Resp BP Pulse Ox 13 145/83 H 98 08/01/18 00:00 07/31/18 23:01 08/01/18 00:00 Intake & Output 07/30/18 07/31/18 08/01/18 06:59 06:59 06:59 Weight 86.183 kg General appearance: PRESENT: no acute distress, cooperative Eye exam: PRESENT: conjunctiva pink Respiratory exam: PRESENT: clear to auscultation heena Cardiovascular exam: PRESENT: RRR GI/Abdominal exam: PRESENT: other - Soft, mildly dilated, tenderness in his mid and right lower abdomen with guarding. Left abdominal transverse wound is clean dry and intact with no erythema and intact fabrice. Extremities exam: PRESENT: other - No swelling Neurological exam: PRESENT: alert, awake Psychiatric exam: PRESENT: appropriate affect Skin exam: PRESENT: warm Results Laboratory Results: 07/31/18 21:09 07/31/18 21:09 07/31/18 07/31/18 07/31/18 21: 21: 23:55 WBC 18.6 H RBC 3.78 L Hgb 11.5 L Hct 32.7 L MCV 87 MCH 30.4 MCHC 35.1 RDW 13.9 Plt Count 438 Seg Neutrophils % 78.5 H Lymphocytes % 7.4 L Monocytes % 12.9 Eosinophils % 0.8 Basophils % 0.4 Absolute Neutrophils 14.6 H Absolute Lymphocytes 1.4 Absolute Monocytes 2.4 H Absolute Eosinophils 0.1 Absolute Basophils 0.1 Sodium 138.4 Potassium 3.8 Chloride 107 Carbon Dioxide 24 Anion Gap 7 BUN 15 Creatinine 0.58 Est GFR ( Amer) > 60 Est GFR (Non-Af Amer) > 60 Glucose 114 H Calcium 9.4 Total Bilirubin 2.0 H AST 29 ALT 34 Alkaline Phosphatase 78 Total Protein 6.5 Albumin 3.8 Lipase 46.4 Urine Color YELLOW Urine Appearance CLEAR Urine pH 6.0 Ur Specific [place] 1.012 Urine Protein NEGATIVE Urine Glucose (UA) NEGATIVE Urine Ketones NEGATIVE Urine Blood NEGATIVE Urine Nitrite NEGATIVE Ur Leukocyte Esterase NEGATIVE Urine WBC (Auto) 1 Urine RBC (Auto) 0 Impressions: Abdomen/Pelvis CT 07/31/18 00:00 IMPRESSION: Moderate amount of blood within the pelvis near the sigmoid colon anastomosis. Assessment & Plan - Diagnosis (1) Abdominal pain Qualifiers: Abdominal location: right lower quadrant Qualified Code(s): R10.31 - Right lower quadrant pain Is this a current diagnosis for this admission?: Yes Plan: Abdominal pain and fever and leukocytosis along with pelvic fluid one week status post colostomy takedown. Possibility of an anastomotic leak versus infected hematoma exists. Will admit the patient and placed on IV antibiotics, IV fluids, n.p.o. Will obtain Gastrografin enema in the morning to evaluate for anastomotic leak. If no leak is evident, may need to repeat the CT scan to see whether the pelvic fluid collection is amenable to percutaneous drainage.
[2018-08-01] MEDS ORDERED: METRONIDAZOLE 500 MG/NS RTU 500 MG/100 ML RTUPB IV ONE (02:30)
[2018-08-01] MEDS: NORMAL SALINE 1000 ML 1,000 ML IV PRN ×2 (02:50→12:28)
[2018-08-01] MEDS: METRONIDAZOLE 500 MG/NS RTU 500 MG/100 ML RTUPB IV SCH ×3 (09:25→20:00)
[2018-08-01] MEDS: HYDROMORPHONE HCL INJ/PF 2 MG/ML AMPULE IV PRN ×4 (09:33→19:38)
[2018-08-01] MEDS: ONDANSETRON HCL INJ/PF 4 MG/2 ML SDV IV PRN ×2 (12:40→19:36)
--- NOTE | 2018-08-01 15:30 | RADIOLOGY REPORT (SQ) ---
EXAM DESCRIPTION: BARIUM ENEMA COMPLETED DATE/TIME: 08/01/2018 1:40 pm REASON FOR STUDY: anastomosis leak COMPARISON: 07/31/2018 FLUOROSCOPY TIME: 48 seconds 39 images saved to PACS. TECHNIQUE: Following retrograde filling of the colon with water-soluble contrast, fluoroscopic spot and overhead imaging of the colon was obtained and saved to PACS. 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 CECUM: Normal mucosa without intraluminal filling defects, intrinsic or extrinsic masses, or lesions. Appendix is surgically absent. ASCENDING COLON: Normal mucosa without intraluminal filling defects, intrinsic or extrinsic masses, o r lesions. TRANSVERSE COLON: Normal mucosa without intraluminal filling defects, intrinsic or extrinsic masses, or lesions. DESCENDING COLON: Scattered colonic diverticula. Otherwise, normal mucosa without intraluminal filli ng defects, intrinsic or extrinsic masses, or lesions. SIGMOID COLON: Evidence of colon resection and re- anastomosis without evidence of leak. Small blind -ending pouch at the level of the anastomosis, likely postsurgical. Scattered colonic diverticula. Otherwise, normal mucosa without intraluminal filling defects, intrinsic or extrinsic masses, or lesi ons. RECTUM: Normal mucosa without intraluminal filling defects, intrinsic or extrinsic masses, or lesions . POST EVAC: Retained contrast. No additional findings. OTHER: No other significant finding. IMPRESSION: Unremarkable water-soluble contrast enema without evidence of anastomotic leak or high-g rade stricture. COMMENT: Quality ID [id number]: Final reports for procedures using fluoroscopy that document radiation exp osure indices, or exposure time and number of fluorographic images (if radiation exposure indices are not available) TECHNICAL DOCUMENTATION: JOB ID: [id number] [employer]- All Rights Reserved Reading location - IP/workstation name: [email or web address]
--- NOTE | 2018-08-01 20:56 | PDOC PROGRESS REPORT ---
Subjective Progress Note for:: 08/01/18 Subjective:: RLQ pains Reason For Visit: INFECTED HEMATOMA Physical Exam Vital Signs: Temp Pulse Resp BP Pulse Ox 98.1 F 72 16 136/74 H 96 08/01/18 17:01 08/01/18 17:01 08/01/18 17:01 08/01/18 17:01 08/01/18 17:01 Intake & Output 07/31/18 08/01/18 08/02/18 06:59 06:59 06:59 Intake Total 300 1200 Balance 300 1200 Weight 82.5 kg Exam: Abdomen is soft with mild tenderness RLQ Results Laboratory Results: 07/31/18 21:09 07/31/18 21:09 07/31/18 07/31/18 07/31/18 21:09 21:09 23:55 WBC 18.6 H RBC 3.78 L Hgb 11.5 L Hct 32.7 L MCV 87 MCH 30.4 MCHC 35.1 RDW 13.9 Plt Count 438 Seg Neutrophils % 78.5 H Lymphocytes % 7.4 L Monocytes % 12.9 Eosinophils % 0.8 Basophils % 0.4 Absolute Neutrophils 14.6 H Absolute Lymphocytes 1.4 Absolute Monocytes 2.4 H Absolute Eosinophils 0.1 Absolute Basophils 0.1 Sodium 138.4 Potassium 3.8 Chloride 107 Carbon Dioxide 24 Anion Gap 7 BUN 15 Creatinine 0.58 Est GFR ( Amer) > 60 Est GFR (Non-Af Amer) > 60 Glucose 114 H Calcium 9.4 Total Bilirubin 2.0 H AST 29 ALT 34 Alkaline Phosphatase 78 Total Protein 6.5 Albumin 3.8 Lipase 46.4 Urine Color YELLOW Urine Appearance CLEAR Urine pH 6.0 Ur Specific [place] 1.012 Urine Protein NEGATIVE Urine Glucose (UA) NEGATIVE Urine Ketones NEGATIVE Urine Blood NEGATIVE Urine Nitrite NEGATIVE Ur Leukocyte Esterase NEGATIVE Urine WBC (Auto) 1 Urine RBC (Auto) 0 Impressions: Abdomen/Pelvis CT 07/31/18 00:00 IMPRESSION: Moderate amount of blood within the pelvis near the sigmoid colon anastomosis. Barium Enema 08/01/18 00:00 IMPRESSION: Unremarkable water-soluble contrast enema without evidence of anastomotic leak or high-grade stricture. Assessment & Plan - Diagnosis (1) Hematoma, postoperative Is this a current diagnosis for this admission?: Yes (2) Abdominal pain Qualifiers: Abdominal location: right lower quadrant Qualified Code(s): R10.31 - Right lower quadrant pain Is this a current diagnosis for this admission?: Yes - Time Time Spent with patient: 15-24 minutes - Inpatient Certification Medical Necessity: Need For IV Fluids, Need for IV Antibiotics - Plan Summary Plan Summary: Continue antibiotics for possible cellulitis/hematoma. No evidence of leak or stricture on Ba Enema today. Have reviewed the films with the Radiologist who feels that it would be difficult to drain the formed hematoma at this time. Possible re-evaluation with CT in 48-72 hrs.
[2018-08-01] MEDS: LEVOFLOXACIN 500 MG/D5W RTU 500 MG/100 ML RTUPB IV SCH (21:31)
[2018-08-02] MEDS: NORMAL SALINE 1000 ML 1,000 ML IV PRN ×4 (00:07→22:46)
[2018-08-02] MEDS: HYDROMORPHONE HCL INJ/PF 2 MG/ML AMPULE IV PRN ×2 (03:35→10:27)
[2018-08-02] MEDS: ONDANSETRON HCL INJ/PF 4 MG/2 ML SDV IV PRN ×2 (03:35→09:42)
[2018-08-02] MEDS: METRONIDAZOLE 500 MG/NS RTU 500 MG/100 ML RTUPB IV SCH ×4 (03:35→20:18)
[2018-08-02 05:17] LABS: HEMATOCRIT 30.4 % (37.9-51.0); HEMOGLOBIN 10.5 g/dL (13.5-17.0); MEAN CORPUSCULAR HEMOGLOBIN 29.9 pg (27.0-33.4); MEAN CORPUSCULAR HGB CONC 34.6 g/dL (32.0-36.0); MEAN CORPUSCULAR VOLUME 86 fl (80-97); PLATELET COUNT 474 10^3/uL (150-450); RED BLOOD COUNT 3.52 10^6/uL (4.35-5.55); RED CELL DISTRIBUTION WIDTH 13.8 % (11.5-14.0); WHITE BLOOD COUNT 12.6 10^3/uL (4.0-10.5)
[2018-08-02 05:43] LABS: ANION GAP 8 (5-19); BLOOD UREA NITROGEN 13 mg/dL (7-20); CALCIUM 8.9 mg/dL (8.4-10.2); CARBON DIOXIDE 26 mmol/L (22-30); CHLORIDE 105 mmol/L (98-107); GLUCOSE 89 mg/dL (75-110); POTASSIUM 4.6 mmol/L (3.6-5.0); SODIUM 138.5 mmol/L (137-145)
--- NOTE | 2018-08-02 12:28 | PDOC PROGRESS REPORT ---
Subjective Progress Note for:: 08/02/18 Subjective:: Abdominal pain has decreased. Nausea has resolved. Patient is very hungry. Reason For Visit: INFECTED HEMATOMA Physical Exam Vital Signs: Temp Pulse Resp BP Pulse Ox 98.8 F 79 20 129/78 H 98 08/02/18 09:02 08/02/18 09:02 08/02/18 09:02 08/02/18 09:02 08/02/18 09:02 Intake & Output 08/01/18 08/02/18 08/03/18 06:59 06:59 06:59 Intake Total 300 4832 100 Balance 300 4832 100 Weight 82.5 kg 83.4 kg General appearance: PRESENT: no acute distress, cooperative Respiratory exam: PRESENT: clear to auscultation heena Cardiovascular exam: PRESENT: RRR GI/Abdominal exam: PRESENT: other - Soft, nondistended, tenderness in the lower abdomen but it is decreased from his admission exam. Results Laboratory Results: 08/02/18 04:05 08/02/18 04:05 08/02/18 08/02/18 04:05 04:05 WBC 12.6 H RBC 3.52 L Hgb 10.5 L Hct 30.4 L MCV 86 MCH 29.9 MCHC 34.6 RDW 13.8 Plt Count 474 H Sodium 138.5 Potassium 4.6 Chloride 105 Carbon Dioxide 26 Anion Gap 8 BUN 13 Creatinine 0.59 Est GFR ( Amer) > 60 Est GFR (Non-Af Amer) > 60 Glucose 89 Calcium 8.9 Impressions: Abdomen/Pelvis CT 07/31/18 00:00 IMPRESSION: Moderate amount of blood within the pelvis near the sigmoid colon anastomosis. Barium Enema 08/01/18 00:00 IMPRESSION: Unremarkable water-soluble contrast enema without evidence of anastomotic leak or high-grade stricture. Assessment & Plan - Diagnosis (1) Abdominal pain Qualifiers: Abdominal location: right lower quadrant Qualified Code(s): R10.31 - Right lower quadrant pain Is this a current diagnosis for this admission?: Yes (2) Infected hematoma following procedure Is this a current diagnosis for this admission?: Yes Plan: Barium enema demonstrated no evidence of anastomotic leak. Patient likely with infected hematoma responding with antibiotics. Will advance his diet today. Mild decrease of his hemoglobin likely due to hemodilution. Leukocytosis improving as well.
[2018-08-02] MEDS: KETOROLAC TROMETHAMINE INJ/PF 30 MG/1 ML SDV IV PRN ×2 (14:16→20:18)
[2018-08-02] MEDS ORDERED: ACETAMINOPHEN 325 MG TABLET ONE (19:36)
[2018-08-02] MEDS ORDERED: ACETAMINOPHEN 325 MG TABLET PO PRN (20:05)
[2018-08-02] MEDS: LEVOFLOXACIN 500 MG/D5W RTU 500 MG/100 ML RTUPB IV SCH (22:46)
[2018-08-03] MEDS: METRONIDAZOLE 500 MG/NS RTU 500 MG/100 ML RTUPB IV SCH ×4 (03:26→20:02)
[2018-08-03 05:52] LABS: HEMATOCRIT 30.6 % (37.9-51.0); HEMOGLOBIN 10.8 g/dL (13.5-17.0); MEAN CORPUSCULAR HEMOGLOBIN 30.5 pg (27.0-33.4); MEAN CORPUSCULAR HGB CONC 35.3 g/dL (32.0-36.0); MEAN CORPUSCULAR VOLUME 87 fl (80-97); PLATELET COUNT 516 10^3/uL (150-450); RED BLOOD COUNT 3.54 10^6/uL (4.35-5.55); RED CELL DISTRIBUTION WIDTH 13.5 % (11.5-14.0); WHITE BLOOD COUNT 10.9 10^3/uL (4.0-10.5)
[2018-08-03] MEDS: KETOROLAC TROMETHAMINE INJ/PF 30 MG/1 ML SDV IV PRN ×3 (06:57→20:03)
[2018-08-03] MEDS: NORMAL SALINE 1000 ML 1,000 ML IV PRN (06:58)
--- NOTE | 2018-08-03 15:36 | PDOC PROGRESS REPORT ---
Subjective Progress Note for:: 08/03/18 Subjective:: less pains. Has flatus. Hungry Reason For Visit: INFECTED HEMATOMA Physical Exam Vital Signs: Temp Pulse Resp BP Pulse Ox 98.4 F 78 16 131/59 H 99 08/03/18 11:49 08/03/18 11:49 08/03/18 11:49 08/03/18 11:49 08/03/18 07:10 Intake & Output 08/02/18 08/03/18 08/04/18 06:59 06:59 06:59 Intake Total 4832 3794 403 Balance 4832 3794 403 Weight 83.4 kg 83.5 kg Exam: abd is soft and flat. Mild tenderness RLQ Results Laboratory Results: 08/03/18 05:17 08/02/18 04:05 08/03/18 05:17 WBC 10.9 H RBC 3.54 L Hgb 10.8 L Hct 30.6 L MCV 87 MCH 30.5 MCHC 35.3 RDW 13.5 Plt Count 516 H Impressions: Abdomen/Pelvis CT 07/31/18 00:00 IMPRESSION: Moderate amount of blood within the pelvis near the sigmoid colon anastomosis. Barium Enema 08/01/18 00:00 IMPRESSION: Unremarkable water-soluble contrast enema without evidence of anastomotic leak or high-grade stricture. Assessment & Plan - Diagnosis (1) Hematoma, postoperative Is this a current diagnosis for this admission?: Yes (2) Abdominal pain Qualifiers: Abdominal location: right lower quadrant Qualified Code(s): R10.31 - Right lower quadrant pain Is this a current diagnosis for this admission?: Yes - Time Time Spent with patient: 15-24 minutes - Plan Summary Plan Summary: Clinically improving. Will increase diet and continue IV antibiotics. WBC is trending down.
[2018-08-03] MEDS: LEVOFLOXACIN 500 MG/D5W RTU 500 MG/100 ML RTUPB IV SCH (21:05)
[2018-08-04] MEDS: KETOROLAC TROMETHAMINE INJ/PF 30 MG/1 ML SDV IV PRN ×2 (03:56→20:18)
[2018-08-04] MEDS: METRONIDAZOLE 500 MG/NS RTU 500 MG/100 ML RTUPB IV SCH ×4 (03:56→20:18)
[2018-08-04 07:29] LABS: ABSOLUTE BASOPHILS # (AUTO) 0.1 10^3/uL (0.0-0.2); ABSOLUTE EOSINOPHILS # (AUTO) 0.4 10^3/uL (0.0-0.6); ABSOLUTE LYMPHOCYTES (AUTO) 1.4 10^3/uL (0.5-4.7); ABSOLUTE MONOCYTES (AUTO) 1.4 10^3/uL (0.1-1.4); ABSOLUTE NEUT (AUTO) 7.7 10^3/uL (1.7-8.2); BASOPHILS % (AUTO) 0.9 % (0-2); EOSINOPHILS % (AUTO) 4.1 % (0-6); HEMATOCRIT 30.5 % (37.9-51.0); HEMOGLOBIN 10.8 g/dL (13.5-17.0); LYMPHOCYTES % (AUTO) 12.4 % (13-45); MEAN CORPUSCULAR HEMOGLOBIN 29.9 pg (27.0-33.4); MEAN CORPUSCULAR HGB CONC 35.3 g/dL (32.0-36.0); MEAN CORPUSCULAR VOLUME 85 fl (80-97); MONOCYTES % (AUTO) 12.4 % (3-13); PLATELET COUNT 605 10^3/uL (150-450); RED CELL DISTRIBUTION WIDTH 13.6 % (11.5-14.0); SEGMENTED NEUTROPHILS % (AUTO) 70.2 % (42-78); TOTAL CELLS COUNTED % (AUTO) 100 %
--- NOTE | 2018-08-04 13:50 | PDOC PROGRESS REPORT ---
Subjective Progress Note for:: 08/04/18 Subjective:: Still with LLQ pains. + BM Reason For Visit: INFECTED HEMATOMA Physical Exam Vital Signs: Temp Pulse Resp BP Pulse Ox 99.0 F 77 16 134/76 H 100 08/04/18 12:00 08/04/18 12:00 08/04/18 12:00 08/04/18 12:00 08/04/18 12:00 Intake & Output 08/03/18 08/04/18 08/05/18 06:59 06:59 06:59 Intake Total 3794 2703 100 Balance 3794 2703 100 Weight 83.5 kg 82.5 kg Exam: abdomen is soft but drier tender RLQ Results Laboratory Results: 08/04/18 07:09 08/02/18 04:05 08/04/18 07:09 WBC 11.0 H RBC 3.60 L Hgb 10.8 L Hct 30.5 L MCV 85 MCH 29.9 MCHC 35.3 RDW 13.6 Plt Count 605 H Seg Neutrophils % 70.2 Lymphocytes % 12.4 L Monocytes % 12.4 Eosinophils % 4.1 Basophils % 0.9 Absolute Neutrophils 7.7 Absolute Lymphocytes 1.4 Absolute Monocytes 1.4 Absolute Eosinophils 0.4 Absolute Basophils 0.1 Impressions: Abdomen/Pelvis CT 07/31/18 00:00 IMPRESSION: Moderate amount of blood within the pelvis near the sigmoid colon anastomosis. Barium Enema 08/01/18 00:00 IMPRESSION: Unremarkable water-soluble contrast enema without evidence of anastomotic leak or high-grade stricture. Assessment & Plan - Diagnosis (1) Hematoma, postoperative Is this a current diagnosis for this admission?: Yes (2) Abdominal pain Qualifiers: Abdominal location: right lower quadrant Qualified Code(s): R10.31 - Right lower quadrant pain Is this a current diagnosis for this admission?: Yes - Time Time Spent with patient: 15-24 minutes - Inpatient Certification Medical Necessity: Need for IV Antibiotics, Risk of Complication if Not Cared For in Hospital - Plan Summary Plan Summary: WBC remains 11.0 Temp is 99 Still with RLQ pains and tenderness May need re CT scan if no improvement in next 24-48 hrs
[2018-08-04] MEDS: LEVOFLOXACIN 500 MG/D5W RTU 500 MG/100 ML RTUPB IV SCH (21:25)
[2018-08-05] MEDS: METRONIDAZOLE 500 MG/NS RTU 500 MG/100 ML RTUPB IV SCH ×2 (04:16→09:39)
[2018-08-05 05:39] LABS: ABSOLUTE BASOPHILS # (AUTO) 0.1 10^3/uL (0.0-0.2); ABSOLUTE EOSINOPHILS # (AUTO) 0.4 10^3/uL (0.0-0.6); ABSOLUTE LYMPHOCYTES (AUTO) 1.3 10^3/uL (0.5-4.7); ABSOLUTE MONOCYTES (AUTO) 1.5 10^3/uL (0.1-1.4); BASOPHILS % (AUTO) 0.5 % (0-2); EOSINOPHILS % (AUTO) 2.7 % (0-6); HEMATOCRIT 30.4 % (37.9-51.0); HEMOGLOBIN 10.8 g/dL (13.5-17.0); MEAN CORPUSCULAR HGB CONC 35.4 g/dL (32.0-36.0); MEAN CORPUSCULAR VOLUME 85 fl (80-97); MONOCYTES % (AUTO) 11.2 % (3-13); PLATELET COUNT 625 10^3/uL (150-450); RED BLOOD COUNT 3.59 10^6/uL (4.35-5.55); RED CELL DISTRIBUTION WIDTH 13.9 % (11.5-14.0); SEGMENTED NEUTROPHILS % (AUTO) 75.6 % (42-78); TOTAL CELLS COUNTED % (AUTO) 100 %; WHITE BLOOD COUNT 13.2 10^3/uL (4.0-10.5)
--- NOTE | 2018-08-05 11:56 | RADIOLOGY REPORT (SQ) ---
EXAM DESCRIPTION: CT ABD/PELVIS WITH IV ORAL COMPLETED DATE/TIME: 08/05/2018 11:11 am REASON FOR STUDY: R/O pelvic abscess COMPARISON: 07/31/2018. TECHNIQUE: CT scan of the abdomen and pelvis performed using helical scanning technique with oral co ntrast and dynamic intravenous contrast injection. Images reviewed with lung, soft tissue, and bone w indows. Reconstructed coronal and sagittal MPR images reviewed. Delayed images for evaluation of the urinary system also acquired. All images stored on PACS. All CT scanners at this facility use dose modulation, iterative reconstruction, and/or weight based d osing when appropriate to reduce radiation dose to as low as reasonably achievable (ALARA). [facility]: Dose Right [facility]: CareDose [facility]: Dose Right [facility]: Teradose 4D [facility]: Mediaspectrum CONTRAST TYPE AND DOSE: contrast/concentration: Isovue 350.00 mg/ml; Total Contrast Delivered: 94.0 ml; Total Saline Delivered: 71.0 ml RENAL FUNCTION: BUN 13 creatinine 0.59. RADIATION DOSE: CT Rad equipment meets quality standard of care and radiation dose reduction techniq ues were employed. CTDIvol: 7.2 - 9.9 mGy. DLP: 1041 mGy-cm.. LIMITATIONS: None. FINDINGS: LOWER CHEST: Linear atelectasis in the lung bases. No nodules or infiltrates. LIVER: Normal size. No masses. No dilated ducts. SPLEEN: Normal size. No focal lesions. PANCREAS: No masses. No significant calcifications. No adjacent inflammation or peripancreatic fluid collections. Pancreatic duct not dilated. GALLBLADDER: No identified stones by CT criteria. No inflammatory changes to suggest cholecystitis. ADRENAL GLANDS: No significant masses or asymmetry. RIGHT KIDNEY AND URETER: No solid masses. No significant calcifications. No hydronephrosis or hyd roureter. LEFT KIDNEY AND URETER: No solid masses. No significant calcifications. No hydronephrosis or hydr oureter. AORTA AND VESSELS: No aneurysm. No dissection. Renal arteries, SMA, celiac without stenosis. RETROPERITONEUM: No retroperitoneal adenopathy, hemorrhage or masses. BOWEL AND PERITONEAL CAVITY: Surgical anastomosis of the sigmoid colon. No contrast leakage demonstr ated from the anastomosis. Again seen is fluid in the pelvis and right and left pericolic gutter. C ompared to the prior CT, the fluid now has lower density. APPENDIX: Surgically absent. PELVIS: No mass. No free fluid. Normal bladder. ABDOMINAL WALL: No masses. No hernias. BONES: No significant or acute findings. OTHER: No other significant finding. IMPRESSION: 1. FLUID COLLECTION IN THE PELVIS AND ALONG THE PERICOLIC GUTTERS SECONDARY TO PREVIOUS PERITONEAL BL OOD. THE FLUID NOW HAS LOWER DENSITY CONSISTENT WITH RESOLVING BLOOD PRODUCTS. NO CONTRAST LEAKAGE DEMONSTRATED FROM THE SURGICAL ANASTOMOSIS. 2. NO OTHER SIGNIFICANT OR ACUTE FINDING IN THE ABDOMEN OR PELVIS ON CT SCAN WITH IV CONTRAST. TECHNICAL DOCUMENTATION: JOB ID: [id number] Quality ID # [id number]: Final reports with documentation of one or more dose reduction techniques (e.g., Au tomated exposure control, adjustment of the mA and/or kV according to patient size, use of iterative reconstruction technique) 2010 [employer]- All Rights Reserved Reading location - IP/workstation name: [email or web address]
--- NOTE | 2018-08-05 12:01 | PDOC PROGRESS REPORT ---
Subjective Progress Note for:: 08/05/18 Subjective:: Patient has a variety of complaints including some nausea and states he had a fever; has had some bowel sounds and movement but has had some cramping sensations. Now taking p.o. contrast for CT scan previously ordered Reason For Visit: INFECTED HEMATOMA Physical Exam Vital Signs: Temp Pulse Resp BP Pulse Ox 98.0 F 84 16 136/81 H 98 08/05/18 08:00 08/05/18 08:00 08/05/18 08:00 08/05/18 08:00 08/05/18 08:00 Intake & Output 08/04/18 08/05/18 08/06/18 06:59 06:59 06:59 Intake Total 2703 2722 100 Balance 2703 2722 100 Weight 82.5 kg 82.5 kg General appearance: PRESENT: no acute distress GI/Abdominal exam: PRESENT: other - Fairly benign-appearing abdomen. There are no peritoneal signs no rigidity; minimal tenderness. Results Laboratory Results: 08/05/18 05:16 08/02/18 04:05 08/05/18 05:16 WBC 13.2 H RBC 3.59 L Hgb 10.8 L Hct 30.4 L MCV 85 MCH 30.0 MCHC 35.4 RDW 13.9 Plt Count 625 H Seg Neutrophils % 75.6 Lymphocytes % 10.0 L Monocytes % 11.2 Eosinophils % 2.7 Basophils % 0.5 Absolute Neutrophils 10.0 H Absolute Lymphocytes 1.3 Absolute Monocytes 1.5 H Absolute Eosinophils 0.4 Absolute Basophils 0.1 Impressions: Barium Enema 08/01/18 00:00 IMPRESSION: Unremarkable water-soluble contrast enema without evidence of anastomotic leak or high-grade stricture. Assessment & Plan - Diagnosis (1) Abdominal pain Qualifiers: Abdominal location: generalized Qualified Code(s): R10.84 - Generalized abdominal pain Is this a current diagnosis for this admission?: Yes Plan: Impression: Residual abdominal pain; no documented fever; mild leukocytosis; intra-abdominal fluid and pelvis felt to be hematoma on previous CT scan; 11 days status post colostomy takedown; low suspicion for significant intra- abdominal pathology Commendations: 1. Check results of CT scan of abdomen and pelvis 2. If unremarkable, as anticipated, likely discontinue support and send patient home. 3. Discontinue fabrice left lower quadrant
[2018-08-06 12:12] VITALS: BP 138/87
--- NOTE | 2018-08-06 13:42 | Discharge Summary ---
Discharge Summary (SDC) - Discharge Final Diagnosis: pelvic hematoma post surgery Discharge Date: 08/06/18 Condition: Good Discharge Diet: As Tolerated Respiratory Treatments at Home: Deep Breathing/Coughing Discharge Activity: Activity As Tolerated, Balance Activity w/Rest Home Care Assistance: None Needed Report the Following to Your Physician Immediately: Shortness of Breath, Nausea, Vomiting, Increase in Pain, Fever over 101 Degrees, Redness, Swelling, Warmth
--- NOTE | 2018-08-06 14:13 | DISCHARGE SUMMARY E ---
Discharge Summary NAME: JENNY KOWALSKI JR : 1975 AGE: 43Y ADMITTED: 08/01/2018 DISCHARGED: 08/06/2018 REASON FOR HOSPITALIZATION/HOSPITAL COURSE: This is a 43-year-old male who presented to the emergency room on 07/31/2018 with abdominal pain. He was 2 weeks status post a right-sided colostomy drop back procedure and was discharged 5 days prior to his readmission, doing well. However, he then returned with increased abdominal pain. A CT scan was obtained which showed a fluid collection in his pelvis, and he was therefore admitted for IV antibiotics. He was seen by Surgery, who recommended a barium dye study through the rectum to rule out any leak, and that was done and did not show any type of leak. The patient has always had a couple of small bowel movements per day since his initial discharge. He also was noted to have an elevated white count on the day of admission at 18.6. He was started on IV antibiotics. His white count subsequently came down the following day to 12.6. A repeat CT scan did show no evidence of increased fluid collection and it was felt that it was due to the hematoma in his pelvis. Antibiotics were stopped, and he maintained a relatively normal white count of between 11 and 13. He was monitored on IV antibiotics for approximately 5 days. Today, he is feeling better. He still has some pressure symptoms when he is having a bowel movement or passing urine, but he is tolerating a diet and is passing bowel movements, and his pain is much better controlled. He is now ready for discharge home. He is instructed to follow up with Dr. Waters in 7-10 days after discharge, and to increase his diet as tolerated. He will be given no discharge medications, as he has his current medications at home. DICTATING PHYSICIAN: YAJAIRA HARPER M.D. [id number] PHY#: [id number] ID: [id number] JOB#: [id number] ACCT: [id number] cc:YAJAIRA HARPER M.D. [facility],
== END 2018-08-06 13:52 | disposition home or self-care (01) | DRG 921 ==
LOC: ER 20:31 → EH 08-01 00:31 → 5 08-01 02:30 → 4N 08-02 14:47
PROVIDERS: ATTEND Radiology Diagnostic Radiology
DX: K91.870 Postprocedural hematoma of a digestive system organ or structure following a digestive system procedure (principal); I10 Essential (primary) hypertension; K21.9 Gastro-esophageal reflux disease without esophagitis; M19.90 Unspecified osteoarthritis, unspecified site; M10.9 Gout, unspecified; F90.9 Attention-deficit hyperactivity disorder, unspecified type; F43.10 Post-traumatic stress disorder, unspecified; F17.200 Nicotine dependence, unspecified, uncomplicated; F12.90 Cannabis use, unspecified, uncomplicated; Y83.8 Other surgical procedures as the cause of abnormal reaction of the patient, or of later complication, without mention of misadventure at the time of the procedure; Z90.49 Acquired absence of other specified parts of digestive tract
CPT/HCPCS: 36415; 74177; 74270; 80048; 80053; 81001; 83690; 85025; 85027; 87040; 96374; 96375; 99285; J0744; J1170; J1885; J1956; J2405; J3010; J3490; J7030

== ENCOUNTER 2018-08-16 11:45 | Inpatient (IN) | payer OTHER ==
[2018-08-16] MEDS ORDERED: SUCCINYLCHOLINE CHLORIDE INJ 200 MG/10 ML VIAL ONE (12:14)
[2018-08-16] MEDS ORDERED: ROCURONIUM BROMIDE INJ 50 MG/5 ML VIAL IV ONE (12:14)
[2018-08-16] MEDS ORDERED: DEXTROSE 5%-1/2 NORMAL SALINE 1,000 ML IV PRN (12:23)
[2018-08-16] MEDS: PIPERACILLIN SODIUM/TAZOBACTAM 3.375 GM in NORMAL SALINE 100 ML IV SCH ×2 (12:59→17:35)
[2018-08-16 13:10] LABS: ABSOLUTE BASOPHILS # (AUTO) 0.2 10^3/uL (0.0-0.2); ABSOLUTE EOSINOPHILS # (AUTO) 0.4 10^3/uL (0.0-0.6); ABSOLUTE LYMPHOCYTES (AUTO) 1.4 10^3/uL (0.5-4.7); ABSOLUTE MONOCYTES (AUTO) 1.7 10^3/uL (0.1-1.4); ABSOLUTE NEUT (AUTO) 12.1 10^3/uL (1.7-8.2); EOSINOPHILS % (AUTO) 2.5 % (0-6); HEMATOCRIT 33.9 % (37.9-51.0); HEMOGLOBIN 11.6 g/dL (13.5-17.0); LYMPHOCYTES % (AUTO) 8.9 % (13-45); MEAN CORPUSCULAR HEMOGLOBIN 27.9 pg (27.0-33.4); MEAN CORPUSCULAR HGB CONC 34.1 g/dL (32.0-36.0); MEAN CORPUSCULAR VOLUME 82 fl (80-97); PLATELET COUNT 813 10^3/uL (150-450); RED BLOOD COUNT 4.15 10^6/uL (4.35-5.55); RED CELL DISTRIBUTION WIDTH 14.9 % (11.5-14.0); SEGMENTED NEUTROPHILS % (AUTO) 76.6 % (42-78); TOTAL CELLS COUNTED % (AUTO) 100 %; WHITE BLOOD COUNT 15.8 10^3/uL (4.0-10.5)
[2018-08-16] MEDS: MORPHINE SULFATE 10 MG/ML INJ IV PRN ×2 (13:15→22:03)
[2018-08-16] MEDS: PROMETHAZINE HCL INJ 25 MG/1 ML VIAL IV PRN (13:27)
[2018-08-16 13:33] LABS: ALANINE AMINOTRANSFERASE 46 U/L (21-72); ALBUMIN 3.4 g/dL (3.5-5.0); ALKALINE PHOSPHATASE 138 U/L (38-126); ANION GAP 10 (5-19); ASPARTATE AMINO TRANSFERASE 38 U/L (17-59); BILIRUBIN,DIRECT 0.4 mg/dL (0.0-0.4); BILIRUBIN,TOTAL 0.9 mg/dL (0.2-1.3); BLOOD UREA NITROGEN 12 mg/dL (7-20); CALCIUM 9.6 mg/dL (8.4-10.2); CARBON DIOXIDE 28 mmol/L (22-30); CHLORIDE 96 mmol/L (98-107); GLUCOSE 95 mg/dL (75-110); POTASSIUM 4.3 mmol/L (3.6-5.0); SODIUM 134.4 mmol/L (137-145)
--- NOTE | 2018-08-16 16:06 | PDOC H&P ---
History of Present Illness Admission Date/PCP: 08/16/18 11:45 ИВАН ROSENBERG MD Patient complains of: Bilateral lower quadrant abdominal pain, night sweats, fevers of 101 F History of Present Illness: JENNY KOWALSKI JR is a 43 year old male recently status post colostomy reversal. Last week the patient was hospitalized for lower abdominal pain. He was discharged home in stable condition. The patient represented to the office today with continued bilateral abdominal pain. He reports fevers and night sweats. His temperature has reached 101 F at home. He denies nausea or vomiting, but he does feel weak, fatigued, short of breath, and he has experi enced malaise. He also reports intermittent hematochezia. Patient denies chest pain, blurry vision, rash, swallowing difficulty, dysuria, back pain. Past Medical History Cardiac Medical History: Denies: Atrial Fibrillation, Congestive Heart Failure, Coronary Artery Disease, Myocardial Infarction, Hyperlipidema, Hypertension, Peripheral Vascular Disease, Pulmonary Embolism, Heart Murmur Pulmonary Medical History: Reports: Bronchitis, Pneumonia Denies: Asthma, Chronic Obstructive Pulmonary Disease (COPD), Respiratory Failure, Sleep Apnea, Tuberculosis Neurological Medical History: Denies: Seizures Malignancy Medical History: Denies: Lung Cancer GI Medical History: Reports: Gastroesophageal Reflux Disease Denies: Crohn's Disease, Hiatal Hernia Musculoskeltal Medical History: Reports: Arthritis, Gout Denies: Fibromyalgia Psychiatric Medical History: Reports: Attention Deficit Hyperactivity Disorder, Post Traumatic Stress Disorder Denies: Bipolar Disorder, Depression Hematology: Denies: Anemia Past Surgical History Past Surgical History: Reports: Appendectomy, Colostomy, Other - Recent colostomy takedown Denies: Cholecystectomy, Coronary Artery Bypass Graft, Gastric Bypass Surgery, Herniorrhaphy, Pacemaker Social History Smoking Status: Former Smoker Last Time Smoked: 07/25/2018 Frequency of Alcohol Use: None Hx Recreational Drug Use: Yes Drugs: Marijuana Hx Prescription Drug Abuse: No Family History Family History: Reviewed & Not Pertinent, DM, Malignancy Parental Family History Reviewed: Yes Children Family History Reviewed: Yes Sibling(s) Family History Reviewed.: Yes Medication/Allergy Home Medications: No Home Medications 07/24/18 Allergies/Adverse Reactions: No Known Allergies Allergy (Verified 07/25/18 08:37) Review of Systems Constitutional: PRESENT: chills, fatigue, fever(s), night sweats, weakness Eyes: ABSENT: visual disturbances Ears: ABSENT: hearing changes Nose, Mouth, and Throat: ABSENT: mouth pain, sore throat Cardiovascular: PRESENT: dyspnea on exertion. ABSENT: chest pain Respiratory: ABSENT: cough, hemoptysis Gastrointestinal: PRESENT: abdominal pain, bloating, hematochezia. ABSENT: hematemesis, nausea, vomiting Genitourinary: ABSENT: dysuria Musculoskeletal: ABSENT: back pain Integumentary: ABSENT: pruritus, rash Neurological: PRESENT: dizziness. ABSENT: confusion, convulsions Psychiatric: ABSENT: anxiety, depression Endocrine: ABSENT: cold intolerance, heat intolerance Hematologic/Lymphatic: ABSENT: easy bleeding, easy bruising Physical Exam Vital Signs: Temp Pulse Resp BP Pulse Ox 98.9 F 83 16 130/81 H 100 08/16/18 12:46 08/16/18 12:46 08/16/18 12:46 08/16/18 12:46 08/16/18 12:46 Intake & Output 08/15/18 08/16/18 08/17/18 06:59 06:59 06:59 Intake Total 100 Balance 100 Weight 79.4 kg General appearance: PRESENT: no acute distress, cooperative Head exam: PRESENT: atraumatic, normocephalic Eye exam: PRESENT: EOMI, PERRLA. ABSENT: scleral icterus Mouth exam: PRESENT: moist, neck supple Teeth exam: PRESENT: poor dentation Neck exam: ABSENT: meningismus, tenderness, thyromegaly, tracheal deviation Respiratory exam: PRESENT: clear to auscultation heena, unlabored. ABSENT: chest wall tenderness, tachypnea, wheezes Cardiovascular exam: PRESENT: RRR Pulses: PRESENT: normal radial pulses Vascular exam: PRESENT: normal capillary refill. ABSENT: pallor GI/Abdominal exam: PRESENT: guarding - LLQ, soft, tenderness - LLQ, RLQ. ABSENT: distended, rebound, rigid Rectal exam: PRESENT: deferred Extremities exam: ABSENT: clubbing Musculoskeletal exam: ABSENT: deformity Neurological exam: PRESENT: alert, awake, oriented to person, oriented to place, oriented to time, oriented to situation Psychiatric exam: ABSENT: agitated, anxious, depressed Focused psych exam: ABSENT: delusional Skin exam: ABSENT: cyanosis, erythema, jaundice Results Laboratory Results: 08/16/18 12:59 08/16/18 12:59 08/16/18 08/16/18 12:59 12:59 WBC 15.8 H RBC 4.15 L Hgb 11.6 L Hct 33.9 L MCV 82 MCH 27.9 MCHC 34.1 RDW 14.9 H Plt Count 813 H Seg Neutrophils % 76.6 Lymphocytes % 8.9 L Monocytes % 11.0 Eosinophils % 2.5 Basophils % 1.0 Absolute Neutrophils 12.1 H Absolute Lymphocytes 1.4 Absolute Monocytes 1.7 H Absolute Eosinophils 0.4 Absolute Basophils 0.2 Sodium 134.4 L Potassium 4.3 Chloride 96 L Carbon Dioxide 28 Anion Gap 10 BUN 12 Creatinine 0.61 Est GFR ( Amer) > 60 Est GFR (Non-Af Amer) > 60 Glucose 95 Calcium 9.6 Total Bilirubin 0.9 AST 38 ALT 46 Alkaline Phosphatase 138 H Total Protein 7.0 Albumin 3.4 L Assessment & Plan - Diagnosis (1) Night sweats Is this a current diagnosis for this admission?: Yes (2) Abdominal pain Qualifiers: Abdominal location: lower abdomen, unspecified Qualified Code(s): R10.30 - Lower abdominal pain, unspecified Is this a current diagnosis for this admission?: Yes - Plan Summary Plan Summary: This is a 43-year-old male recently status post colostomy reversal. The patient is having increasing amounts of bilateral lower quadrant abdominal pain as well as fevers and night sweats. His abdomen is mildly tender to palpation. He does not exhibit peritonitis. The patient also reports several episodes of hematochezia, but they resolve spontaneously. Patient does not appear toxic. He is due for a CT scan in the very near future. I believe this will elucidate the source of his problem. Differential includes intra-abdominal abscess, extra-abdominal abscess, or gastrointestinal infection. The patient has been started on antibiotics. Further recommendations and treatments to be determined after CT scanning is performed.
[2018-08-16] MEDS ORDERED: RINGERS SOLUTION,LACTATED 1,000 ML IV PRN (16:11)
--- NOTE | 2018-08-16 16:19 | RADIOLOGY REPORT (SQ) ---
EXAM DESCRIPTION: CT ABD/PELVIS WITH IV ORAL COMPLETED DATE/TIME: 08/16/2018 3:52 pm REASON FOR STUDY: PRE OP COMPARISON: 08/05/2018 and 07/31/2018. TECHNIQUE: CT scan of the abdomen and pelvis performed using helical scanning technique with dynamic intravenous contrast injection. No oral contrast. Images reviewed with lung, soft tissue, and bone windows. Reconstructed coronal and sagittal MPR images reviewed. Delayed images for evaluation of the urinary system also acquired. All images stored on PACS. All CT scanners at this facility use dose modulation, iterative reconstruction, and/or weight based d osing when appropriate to reduce radiation dose to as low as reasonably achievable (ALARA). [facility]: Dose Right [facility]: CareDose [facility]: Dose Right [facility]: Teradose 4D [facility]: DailyLook CONTRAST TYPE AND DOSE: contrast/concentration: Isovue 350.00 mg/ml; Total Contrast Delivered: 91.0 ml; Total Saline Delivered: 70.0 ml RENAL FUNCTION: BUN 12 creatinine 0.61. RADIATION DOSE: CT Rad equipment meets quality standard of care and radiation dose reduction techniq ues were employed. CTDIvol: 4.7 - 5.5 mGy. DLP: 584 mGy-cm.. LIMITATIONS: None. FINDINGS: LOWER CHEST: Linear areas of atelectasis or scarring in the lung bases. LIVER: Normal size. No masses. No dilated ducts. SPLEEN: Normal size. No focal lesions. PANCREAS: No masses. No significant calcifications. No adjacent inflammation or peripancreatic fluid collections. Pancreatic duct not dilated. GALLBLADDER: No identified stones by CT criteria. No inflammatory changes to suggest cholecystitis. ADRENAL GLANDS: No significant masses or asymmetry. RIGHT KIDNEY AND URETER: No solid masses. No significant calcifications. No hydronephrosis or hyd roureter. LEFT KIDNEY AND URETER: No solid masses. No significant calcifications. No hydronephrosis or hydr oureter. AORTA AND VESSELS: No aneurysm. No dissection. Renal arteries, SMA, celiac without stenosis. RETROPERITONEUM: No retroperitoneal adenopathy, hemorrhage or masses. BOWEL AND PERITONEAL CAVITY: The previously seen fluid collection in the lower right pericolic gutter extending into the right iliac fossa has decreased in size and now has a more defined peripheral wal l and decreased attenuation. The previously seen heterogenous fluid collection in the lower abdomen and pelvis now demonstrates numerous collections of gas. This fluid collection is located adjacent t o the anastomotic sutures in the distal colon. There is gas extending anteriorly into the left psoas muscle. APPENDIX: Surgically absent. PELVIS: No mass. No free fluid. Normal bladder. ABDOMINAL WALL: No masses. No hernias. BONES: No significant or acute findings. OTHER: No other significant finding. IMPRESSION: 1. HETEROGENOUS FLUID COLLECTION IN THE LOWER ABDOMEN AND PELVIS NOW DEMONSTRATES NUMEROUS COLLECTION S OF GAS WITH GAS EXTENDING INTO THE LEFT PSOAS MUSCLE. PRESUMABLY RELATED TO ABSCESS. SINCE THIS F LUID COLLECTION IS LOCATED ADJACENT TO THE ANASTOMOTIC SUTURE, CANNOT EXCLUDE LEAKAGE FROM THE SURGIC AL SITE. 2. FLUID COLLECTION IN THE LOWER RIGHT PERICOLIC GUTTER IS SMALLER AND MORE WELL-DEFINED WITH DECREAS ED ATTENUATION, PROBABLY REPRESENTING RESOLVING HEMATOMA. 3. NO OTHER SIGNIFICANT FINDINGS IN THE ABDOMEN OR PELVIS. TECHNICAL DOCUMENTATION: JOB ID: [id number] Quality ID # [id number]: Final reports with documentation of one or more dose reduction techniques (e.g., Au tomated exposure control, adjustment of the mA and/or kV according to patient size, use of iterative reconstruction technique) 2010 [id number]- All Rights Reserved Reading location - IP/workstation name: [email or web address]
[2018-08-16] MEDS: DEXTROSE 5%-1/2 NORMAL SALINE 1,000 ML IV PRN (16:23)
[2018-08-16] MEDS ORDERED: HYDROMORPHONE HCL INJ/PF 2 MG/ML AMPULE ONE (16:30)
[2018-08-16] MEDS ORDERED: PROPOFOL INJ 200 MG/20 ML VIAL IV ONE (16:31)
[2018-08-16] MEDS ORDERED: ACETAMINOPHEN 1,000 MG/100 ML RTUPB IV ONE (16:31)
[2018-08-16] MEDS ORDERED: FENTANYL CITRATE INJ/PF 100 MCG/2 ML AMPUL ONE (16:31)
[2018-08-16] MEDS ORDERED: MIDAZOLAM 2 MG/2 ML INJ ONE (16:31)
[2018-08-16] MEDS ORDERED: EPHEDRINE SULFATE INJ 50 MG/1 ML AMPULE ONE (16:32)
[2018-08-16] MEDS ORDERED: SUGAMMADEX SODIUM 200 MG/2 ML SDV IV ONE (16:37)
[2018-08-16] MEDS ORDERED: MORPHINE SULFATE 10 MG/ML INJ IV ONE (17:00)
[2018-08-16] MEDS ORDERED: BUPIVACAINE INJ/PF LIPOSOME/PF 266 MG/20 ML SDV ONE (17:03)
[2018-08-16] MEDS ORDERED: BUPIVACAINE HCL 0.25 % INJ/PF (2.5 MG/1 ML) 30 ML VIAL ONE (17:46)
[2018-08-16] MEDS ORDERED: FENTANYL CITRATE INJ/PF 100 MCG/2 ML AMPUL IV PRN ×3 (18:07)
[2018-08-16] MEDS ORDERED: DIPHENHYDRAMINE HCL 50 MG/ML VIAL IV PRN (18:07)
[2018-08-16] MEDS ORDERED: PROMETHAZINE HCL INJ 25 MG/1 ML VIAL IV PRN (18:07)
[2018-08-16] MEDS ORDERED: MEPERIDINE HCL/PF INJ 25 MG/1 ML DISP.SYRIN IV PRN (18:07)
[2018-08-16] MEDS ORDERED: EPINEPHRINE INJ 1 MG/10 ML DISP.SYRIN ONE (19:06)
[2018-08-16] MEDS: FENTANYL CITRATE INJ/PF 100 MCG/2 ML AMPUL ONE ×2 (19:35→19:40)
--- NOTE | 2018-08-16 19:35 | Operative Report ---
Operative Report DATE OF SURGERY: 08/16/18 PREOPERATIVE DIAGNOSIS: 1. Postoperative pelvic hematoma with air. 2. Status post colostomy takedown with stapled colorectal anastomosis POSTOPERATIVE DIAGNOSIS: Same with no evidence of anastomotic leak;. Oozing from anastomotic staple line OPERATION: 1. Exploration of pelvis to left lower quadrant colostomy takedown site. 2. Evacuation of pelvic hematoma with drain placement. 3. Flexible colonoscopy to 60 cm from the anal verge. 4. Epinephrine injection of anastomotic staple line oozing TISSUE REMOVED OR ALTERED: Clot from the pelvis COMPLICATIONS: None ESTIMATED BLOOD LOSS: 50 cc INTRAOPERATIVE FINDINGS: See below PROCEDURE: The patient was taken the preop holding area the main operating room where anesthesia was induced. The abdomen was exposed, clipped of hair down to the pubic area. The legs were placed in stirrup position. Cedillo catheter 16 [place] was inserted without difficulty with the return of yellow urine. It was hooked to drainage bag. A rectal exam was performed Dr. Waters. There was some old blood evacuated. The abdomen was then prepped and draped in a sterile fashion. Surgical plan surgical timeout conducted. Based on preoperative imaging, the patient had a significant amount of fluid and air in the pelvis, extending up towards the operative incision on the left lower quadrant where the previous colostomy takedown occurred. Therefore I approached the pelvis through this incision. The skin around the incision was anesthetized with quarter percent Marcaine. The previous incision was opened for a length of approximately 6-7 cm. The subcutaneous tissue was unremarkable as was the anterior fascia which was divided of PDS sutures. Once this open, we immediately expressed a large pocket of air. It was not foul-smelling. We then began evacuating liquefied hematoma. I insinuated my finger into the peritoneal cavity and ensured there was a space to then advance the abdominal soccer and this is essentially how evacuated all of the clot from the pelvis. The viscera were adhesed densely in the cephalad direction therefore this was not pursued in any form of dissection. We irrigated the peritoneal cavity out after sending some of the hematoma for Gram stain culture and sensitivity. The peritoneal cavity was irrigated approximately 4 L of saline. There was no obvious mechanical bleeding only some oozing from the diagonally oriented left lower quadrant colostomy site incision. This was managed with gentle compression. At this point I felt it was appropriate perform flexible colonoscopy, to thoroughly evaluate the anastomosis. The endoscopy team was in the room, and the flexible pediatric colonoscope was then advanced up through the anal rectal canal. The anastomosis was at approximately 18 cm from the anal verge and was traversed uneventfully. Upon entry of the scope into the anorectal canal there was a significant amount of fresh and old blood. This was the case up through the anastomosis and up the descending colon. I advanced the colonoscope very carefully up the left colon until approximately 55 cm of scope was in. At this point we could see approximately there was stool and no blood. The blood appeared to be primarily in the distal colon and rectum. I did not advance the scope beyond the demarcation where the stool started. Of note there was a moderate amount of air insufflation during this procedure while keeping the pelvis filled with water. At no time was there any air bubbles escaping into the pelvis. Therefore we did not demonstrate any evidence of leak. The scope was withdrawn aspirating the old blood from the left colon. We then spent some time evaluating the anastomosis. There was no evidence of stenosis. There was some oozing from the staple line or more specifically just distal to it. Photos were taken and I elected to inject 2 cc via 2 separate stick sites into the mucosa just distal to the anastomosis with 1-1000 units of epinephrine. The bleeding which was only an ooze abated. At this point I felt the interrogation of the anastomosis was complete. I presume the patient bled because of the effect of Toradol or some other systemic care. The left colon was decompressed as was the colorectal region of all the air insufflated and the scope withdrawn I returned to the peritoneal cavity with the assistance, and placed 2 large Rajendra drains through the colostomy takedown wound. 1 was placed on the right hemipelvis and the second was placed to the left side of the colorectal anastomosis. The drains were brought out through the colostomy incision and secured to the skin with 2-0 Prolene suture. At this point we felt the operation was complete. Sponge and needle counts are correct. I did not believe a diverting ileostomy was indicated as there was no evidence of leakage from the anastomosis or any semblance of stool throughout the pelvic exploration. The anterior fascial layer was closed with 2 [id number] 1 PDS sutures and the skin approximated fabrice and intervening portions of form packing. Exparel 20 cc was injected in the subcutaneous tissue and a honeycomb dressing applied. Patient tolerated procedure well. He was extubated and taken to recovery room in stable condition.
[2018-08-16 23:50] LABS: APPEARANCE,URINE CLEAR; BILIRUBIN,URINE NEGATIVE (NEGATIVE); COLOR,URINE YELLOW; GLUCOSE, URINE NEGATIVE (NEGATIVE); KETONES,URINE NEGATIVE (NEGATIVE); LEUKOCYTE ESTERASE,URINE NEGATIVE (NEGATIVE); NITRITE,URINE NEGATIVE (NEGATIVE); PROTEIN,URINE NEGATIVE (NEGATIVE); UROBILINOGEN,URINE NEGATIVE mg/dL (<2.0)
[2018-08-17] MEDS ORDERED: ACETAMINOPHEN INJ/PF 1000 MG/100 ML SDV IV SCH
[2018-08-17] MEDS: ACETAMINOPHEN 1,000 MG/100 ML RTUPB IV SCH ×5 (00:30→23:38)
[2018-08-17] MEDS: DEXTROSE 5%-1/2 NORMAL SALINE 1,000 ML IV PRN ×6 (00:31→23:42)
[2018-08-17] MEDS: PIPERACILLIN SODIUM/TAZOBACTAM 3.375 GM in NORMAL SALINE 100 ML IV SCH ×3 (01:17→18:19)
[2018-08-17] MEDS: HYDROMORPHONE HCL INJ/PF 2 MG/ML AMPULE IV PRN ×6 (01:17→21:42)
[2018-08-17] MEDS: PROMETHAZINE HCL INJ 25 MG/1 ML VIAL IV PRN ×2 (08:16→21:52)
[2018-08-17 08:17] LABS: ABSOLUTE BASOPHILS # (AUTO) 0.1 10^3/uL (0.0-0.2); ABSOLUTE EOSINOPHILS # (AUTO) 0.3 10^3/uL (0.0-0.6); ABSOLUTE LYMPHOCYTES (AUTO) 0.9 10^3/uL (0.5-4.7); ABSOLUTE MONOCYTES (AUTO) 1.3 10^3/uL (0.1-1.4); ABSOLUTE NEUT (AUTO) 9.4 10^3/uL (1.7-8.2); BASOPHILS % (AUTO) 0.8 % (0-2); EOSINOPHILS % (AUTO) 2.7 % (0-6); HEMATOCRIT 30.9 % (37.9-51.0); HEMOGLOBIN 10.5 g/dL (13.5-17.0); LYMPHOCYTES % (AUTO) 7.6 % (13-45); MEAN CORPUSCULAR HEMOGLOBIN 28.2 pg (27.0-33.4); MEAN CORPUSCULAR HGB CONC 34.1 g/dL (32.0-36.0); MEAN CORPUSCULAR VOLUME 83 fl (80-97); MONOCYTES % (AUTO) 10.9 % (3-13); PLATELET COUNT 714 10^3/uL (150-450); RED BLOOD COUNT 3.73 10^6/uL (4.35-5.55); RED CELL DISTRIBUTION WIDTH 14.9 % (11.5-14.0); TOTAL CELLS COUNTED % (AUTO) 100 %; WHITE BLOOD COUNT 12.1 10^3/uL (4.0-10.5)
--- NOTE | 2018-08-17 08:26 | PDOC PROGRESS REPORT ---
Subjective Progress Note for:: 08/17/18 Subjective:: Patient had some pain management issues last night; settle down with Dilaudid Reason For Visit: POSTOPERATIVE INFECTION S/P COLOSTOMY TAKEDOWN Physical Exam Vital Signs: Temp Pulse Resp BP Pulse Ox 97.7 F 78 19 136/81 H 100 08/16/18 22:30 08/16/18 22:30 08/16/18 22:30 08/16/18 22:30 08/16/18 22:30 Intake & Output 08/16/18 08/17/18 08/18/18 06:59 06:59 06:59 Intake Total 3770 Output Total 1455 Balance 2315 Weight 81.1 kg General appearance: PRESENT: no acute distress GI/Abdominal exam: PRESENT: other - Serosanguineous drainage from both drains; blood-tinged dressing. Results Laboratory Results: 08/17/18 06:40 08/16/18 08/16/18 08/16/18 12:59 12:59 22:06 WBC 15.8 H RBC 4.15 L Hgb 11.6 L Hct 33.9 L MCV 82 MCH 27.9 MCHC 34.1 RDW 14.9 H Plt Count 813 H Seg Neutrophils % 76.6 Lymphocytes % 8.9 L Monocytes % 11.0 Eosinophils % 2.5 Basophils % 1.0 Absolute Neutrophils 12.1 H Absolute Lymphocytes 1.4 Absolute Monocytes 1.7 H Absolute Eosinophils 0.4 Absolute Basophils 0.2 Sodium 134.4 L Potassium 4.3 Chloride 96 L Carbon Dioxide 28 Anion Gap 10 BUN 12 Creatinine 0.61 Est GFR ( Amer) > 60 Est GFR (Non-Af Amer) > 60 Glucose 95 Calcium 9.6 Total Bilirubin 0.9 AST 38 ALT 46 Alkaline Phosphatase 138 H Total Protein 7.0 Albumin 3.4 L Urine Color YELLOW Urine Appearance CLEAR Urine pH 5.0 Ur Specific [place] 1.050 Urine Protein NEGATIVE Urine Glucose (UA) NEGATIVE Urine Ketones NEGATIVE Urine Blood NEGATIVE Urine Nitrite NEGATIVE Ur Leukocyte Esterase NEGATIVE Urine WBC (Auto) 1 Urine RBC (Auto) 1 08/17/18 06:40 WBC 12.1 H RBC 3.73 L Hgb 10.5 L Hct 30.9 L MCV 83 MCH 28.2 MCHC 34.1 RDW 14.9 H Plt Count 714 H Seg Neutrophils % 78.0 Lymphocytes % 7.6 L Monocytes % 10.9 Eosinophils % 2.7 Basophils % 0.8 Absolute Neutrophils 9.4 H Absolute Lymphocytes 0.9 Absolute Monocytes 1.3 Absolute Eosinophils 0.3 Absolute Basophils 0.1 Sodium Potassium Chloride Carbon Dioxide Anion Gap BUN Creatinine Est GFR ( Amer) Est GFR (Non-Af Amer) Glucose Calcium Total Bilirubin AST ALT Alkaline Phosphatase Total Protein Albumin Urine Color Urine Appearance Urine pH Ur Specific [place] Urine Protein Urine Glucose (UA) Urine Ketones Urine Blood Urine Nitrite Ur Leukocyte Esterase Urine WBC (Auto) Urine RBC (Auto) Impressions: Abdomen/Pelvis CT 08/16/18 00:00 IMPRESSION: 1. HETEROGENOUS FLUID COLLECTION IN THE LOWER ABDOMEN AND PELVIS NOW DEMONSTRATES NUMEROUS COLLECTIONS OF GAS WITH GAS EXTENDING INTO THE LEFT PSOAS MUSCLE. PRESUMABLY RELATED TO ABSCESS. SINCE THIS FLUID COLLECTION IS LOCATED ADJACENT TO THE ANASTOMOTIC SUTURE, CANNOT EXCLUDE LEAKAGE FROM THE SURGICAL SITE. 2. FLUID COLLECTION IN THE LOWER RIGHT PERICOLIC GUTTER IS SMALLER AND MORE WELL-DEFINED WITH DECREASED ATTENUATION, PROBABLY REPRESENTING RESOLVING HEMATOMA. 3. NO OTHER SIGNIFICANT FINDINGS IN THE ABDOMEN OR PELVIS. Assessment & Plan - Diagnosis (1) Hematoma, postoperative Is this a current diagnosis for this admission?: Yes Plan: Impression: Patient is 1 day status post pelvic liquefied hematoma evacuation, drain placement, limited anoscopy, doing reasonably well; pain management issues coming under control. Recommendations: 1. DC Cedillo catheter 2. We will start surgical sips 3. Ambulating in halls 4. Discuss intraoperative findings with patient. (2) GI bleed Qualifiers: GI bleed type/associated pathology: unspecified gastrointestinal hemorrhage type Qualified Code(s): K92.2 - Gastrointestinal hemorrhage, unspecified Is this a current diagnosis for this admission?: Yes (3) S/P colostomy takedown Is this a current diagnosis for this admission?: Yes
[2018-08-17 08:38] LABS: ALANINE AMINOTRANSFERASE 31 U/L (21-72); ALBUMIN 2.7 g/dL (3.5-5.0); ALKALINE PHOSPHATASE 92 U/L (38-126); ANION GAP 9 (5-19); ASPARTATE AMINO TRANSFERASE 22 U/L (17-59); BILIRUBIN,DIRECT 0.4 mg/dL (0.0-0.4); BILIRUBIN,TOTAL 0.6 mg/dL (0.2-1.3); BLOOD UREA NITROGEN 9 mg/dL (7-20); CALCIUM 8.6 mg/dL (8.4-10.2); CARBON DIOXIDE 29 mmol/L (22-30); CHLORIDE 96 mmol/L (98-107); GLUCOSE 138 mg/dL (75-110); POTASSIUM 4.8 mmol/L (3.6-5.0); SODIUM 133.6 mmol/L (137-145); TOTAL PROTEIN 5.7 g/dL (6.3-8.2)
[2018-08-18] MEDS: HYDROMORPHONE HCL INJ/PF 2 MG/ML AMPULE IV PRN ×6 (02:01→22:07)
[2018-08-18] MEDS: PIPERACILLIN SODIUM/TAZOBACTAM 3.375 GM in NORMAL SALINE 100 ML IV SCH ×3 (02:01→17:59)
[2018-08-18] MEDS: ACETAMINOPHEN 1,000 MG/100 ML RTUPB IV SCH ×3 (06:01→17:22)
[2018-08-18] MEDS: DEXTROSE 5%-1/2 NORMAL SALINE 1,000 ML IV PRN ×5 (06:04→22:11)
[2018-08-18] MEDS: ACETAMINOPHEN WITH CODEINE #3 TABLET PO PRN (17:18)
--- NOTE | 2018-08-18 19:21 | PDOC PROGRESS REPORT ---
Subjective Progress Note for:: 08/18/18 Subjective:: Minimal incisional pains. Some bloating sensation. Tolerating clears No flatus Reason For Visit: POST OP HEMATOMA,GI BLEED,S/P COLOSTOMY TAKEDOWN Physical Exam Vital Signs: Temp Pulse Resp BP Pulse Ox 98.2 F 62 16 132/75 H 100 08/18/18 16:00 08/18/18 16:00 08/18/18 16:00 08/18/18 16:00 08/18/18 16:00 Intake & Output 08/17/18 08/18/18 08/19/18 06:59 06:59 06:59 Intake Total 3770 6721 4151 Output Total 1455 2165 1140 Balance 2315 4556 3011 Weight 81.1 kg 83.4 kg Exam: Abdomen is soft. All iodoform deena from incision removed. Has minimal cloudy serous drainage Incision healing fairly well. Results Laboratory Results: 08/17/18 06:40 08/17/18 06:40 08/16/18 17:48 Abdomen - Post Surgical Site Gram Stain - Final Impressions: Abdomen/Pelvis CT 08/16/18 00:00 IMPRESSION: 1. HETEROGENOUS FLUID COLLECTION IN THE LOWER ABDOMEN AND PELVIS NOW DEMONSTRATES NUMEROUS COLLECTIONS OF GAS WITH GAS EXTENDING INTO THE LEFT PSOAS MUSCLE. PRESUMABLY RELATED TO ABSCESS. SINCE THIS FLUID COLLECTION IS LOCATED ADJACENT TO THE ANASTOMOTIC SUTURE, CANNOT EXCLUDE LEAKAGE FROM THE SURGICAL SITE. 2. FLUID COLLECTION IN THE LOWER RIGHT PERICOLIC GUTTER IS SMALLER AND MORE WELL-DEFINED WITH DECREASED ATTENUATION, PROBABLY REPRESENTING RESOLVING HEMATOMA. 3. NO OTHER SIGNIFICANT FINDINGS IN THE ABDOMEN OR PELVIS. Assessment & Plan - Time Time Spent with patient: 15-24 minutes - Inpatient Certification Medical Necessity: Need For IV Fluids, Need for IV Antibiotics - Plan Summary Plan Summary: Continue IV antibiotics Continue Clears
[2018-08-18] MEDS: PROMETHAZINE HCL INJ 25 MG/1 ML VIAL IV PRN (20:57)
[2018-08-19] MEDS: ACETAMINOPHEN 1,000 MG/100 ML RTUPB IV SCH ×5 (00:31→23:47)
[2018-08-19] MEDS: ACETAMINOPHEN WITH CODEINE #3 TABLET PO PRN ×6 (00:35→22:48)
[2018-08-19] MEDS: HYDROMORPHONE HCL INJ/PF 2 MG/ML AMPULE IV PRN ×5 (02:32→20:45)
[2018-08-19] MEDS: PIPERACILLIN SODIUM/TAZOBACTAM 3.375 GM in NORMAL SALINE 100 ML IV SCH ×3 (02:36→17:49)
[2018-08-19] MEDS: DEXTROSE 5%-1/2 NORMAL SALINE 1,000 ML IV PRN ×4 (05:37→20:52)
[2018-08-19 06:26] LABS: ABSOLUTE BASOPHILS # (AUTO) 0.1 10^3/uL (0.0-0.2); ABSOLUTE LYMPHOCYTES (AUTO) 1.6 10^3/uL (0.5-4.7); RED CELL DISTRIBUTION WIDTH 14.5 % (11.5-14.0); TOTAL CELLS COUNTED % (AUTO) 100 %
[2018-08-19 06:33] LABS: ABSOLUTE EOSINOPHILS # (AUTO) 0.4 10^3/uL (0.0-0.6); ABSOLUTE MONOCYTES (AUTO) 0.8 10^3/uL (0.1-1.4); ABSOLUTE NEUT (AUTO) 4.7 10^3/uL (1.7-8.2); BASOPHILS % (AUTO) 0.9 % (0-2); EOSINOPHILS % (AUTO) 5.6 % (0-6); HEMATOCRIT 29.5 % (37.9-51.0); HEMOGLOBIN 10.2 g/dL (13.5-17.0); LYMPHOCYTES % (AUTO) 20.8 % (13-45); MEAN CORPUSCULAR HEMOGLOBIN 28.4 pg (27.0-33.4); MEAN CORPUSCULAR HGB CONC 34.7 g/dL (32.0-36.0); MEAN CORPUSCULAR VOLUME 82 fl (80-97); PLATELET COUNT 684 10^3/uL (150-450); SEGMENTED NEUTROPHILS % (AUTO) 61.7 % (42-78); WHITE BLOOD COUNT 7.6 10^3/uL (4.0-10.5)
[2018-08-19 06:42] LABS: ANION GAP 5 (5-19); CALCIUM 8.6 mg/dL (8.4-10.2); CARBON DIOXIDE 29 mmol/L (22-30); CHLORIDE 104 mmol/L (98-107); GLUCOSE 100 mg/dL (75-110); POTASSIUM 4.2 mmol/L (3.6-5.0); SODIUM 138.4 mmol/L (137-145)
[2018-08-19 06:46] LABS: BLOOD UREA NITROGEN < 2 mg/dL (7-20)
[2018-08-19] MEDS: PROMETHAZINE HCL INJ 25 MG/1 ML VIAL IV PRN ×2 (06:55→11:13)
--- NOTE | 2018-08-19 11:31 | PDOC PROGRESS REPORT ---
Subjective Progress Note for:: 08/19/18 Subjective:: Patient is postoperative day 3 status post pelvic washout with drain placement and diagnostic colonoscopy, doing well, tolerating clear liquids, feels better, voiding without Cedillo catheter, pain adequately managed; patient reports gas collecting in his drain bulbs Reason For Visit: POST OP HEMATOMA,GI BLEED,S/P COLOSTOMY TAKEDOWN Physical Exam Vital Signs: Temp Pulse Resp BP Pulse Ox 98.0 F 61 16 117/65 100 08/19/18 08:09 08/19/18 08:09 08/19/18 08:09 08/19/18 08:09 08/19/18 08:09 Intake & Output 08/18/18 08/19/18 08/20/18 06:59 06:59 06:59 Intake Total 6721 6251 1075 Output Total 2165 2440 Balance 4556 3811 1075 Weight 83.4 kg 78.9 kg General appearance: PRESENT: no acute distress GI/Abdominal exam: PRESENT: other - Abdomen is much softer; drains putting out serous fluid; no evidence of gas in bulbs at this time; some erythema around fabrice at ostomy takedown site Results Laboratory Results: 08/19/18 05:36 08/19/18 05:36 08/19/18 08/19/18 05:36 05:36 WBC 7.6 RBC 3.60 L Hgb 10.2 L Hct 29.5 L MCV 82 MCH 28.4 MCHC 34.7 RDW 14.5 H Plt Count 684 H Seg Neutrophils % 61.7 Lymphocytes % 20.8 Monocytes % 11.0 Eosinophils % 5.6 Basophils % 0.9 Absolute Neutrophils 4.7 Absolute Lymphocytes 1.6 Absolute Monocytes 0.8 Absolute Eosinophils 0.4 Absolute Basophils 0.1 Sodium 138.4 Potassium 4.2 Chloride 104 Carbon Dioxide 29 Anion Gap 5 BUN < 2 L Creatinine 0.60 Est GFR ( Amer) > 60 Est GFR (Non-Af Amer) > 60 Glucose 100 Calcium 8.6 08/16/18 17:48 Abdomen - Post Surgical Site Gram Stain - Final 08/16/18 17:48 Abdomen - Post Surgical Site Wound Culture - Final Escherichia Coli Enterococcus Faecium (Group D) Peptostreptococcus Species Clostridium Sp.not Perfringens Prevotella Species Impressions: Abdomen/Pelvis CT 08/16/18 00:00 IMPRESSION: 1. HETEROGENOUS FLUID COLLECTION IN THE LOWER ABDOMEN AND PELVIS NOW DEMONSTRATES NUMEROUS COLLECTIONS OF GAS WITH GAS EXTENDING INTO THE LEFT PSOAS MUSCLE. PRESUMABLY RELATED TO ABSCESS. SINCE THIS FLUID COLLECTION IS LOCATED ADJACENT TO THE ANASTOMOTIC SUTURE, CANNOT EXCLUDE LEAKAGE FROM THE SURGICAL SITE. 2. FLUID COLLECTION IN THE LOWER RIGHT PERICOLIC GUTTER IS SMALLER AND MORE WELL-DEFINED WITH DECREASED ATTENUATION, PROBABLY REPRESENTING RESOLVING HEMATOMA. 3. NO OTHER SIGNIFICANT FINDINGS IN THE ABDOMEN OR PELVIS. Assessment & Plan - Diagnosis (1) Hematoma, postoperative Is this a current diagnosis for this admission?: Yes Plan: Impression: Patient is now 3 days status post pelvic washout drain placement; growing a multitude of gram-positive and gram-negative organisms including Prevotella, Escherichia coli, enterococcus, Peptostreptococcus and Clostridium; all clinically consistent with colonic roz; gas reported in drain bulb somewhat concerning for colonic leak, however with patient feeling better, abs ence of fever and absence of white count elevation, while on antibiotics, I suggest we stay the course. Recommendations: 1. Continue current care including liquid diet, and current intravenous ant ibiotic which appears to be appropriate for the enterococcus and E. coli sensitivity profile 2. Discussed the above with patient (2) GI bleed Qualifiers: GI bleed type/associated pathology: unspecified gastrointestinal hemorrhage type Qualified Code(s): K92.2 - Gastrointestinal hemorrhage, unspecified Is this a current diagnosis for this admission?: Yes (3) S/P colostomy takedown Is this a current diagnosis for this admission?: Yes
[2018-08-20] MEDS: HYDROMORPHONE HCL INJ/PF 2 MG/ML AMPULE IV PRN ×6 (00:45→21:59)
[2018-08-20] MEDS: DEXTROSE 5%-1/2 NORMAL SALINE 1,000 ML IV PRN ×5 (01:05→23:36)
[2018-08-20] MEDS: ACETAMINOPHEN WITH CODEINE #3 TABLET PO PRN ×5 (02:50→23:36)
[2018-08-20] MEDS: PIPERACILLIN SODIUM/TAZOBACTAM 3.375 GM in NORMAL SALINE 100 ML IV SCH ×3 (02:53→17:43)
--- NOTE | 2018-08-20 16:29 | PDOC PROGRESS REPORT ---
Subjective Reason For Visit: POST OP HEMATOMA,GI BLEED,S/P COLOSTOMY TAKEDOWN Physical Exam Vital Signs: Temp Pulse Resp BP Pulse Ox 98.7 F 66 18 134/69 H 100 08/20/18 07:24 08/20/18 07:24 08/20/18 07:24 08/20/18 07:24 08/20/18 07:24 Intake & Output 08/19/18 08/20/18 08/21/18 06:59 06:59 06:59 Intake Total 6251 6809 2100 Output Total 2440 2950 15 Balance 3811 3859 2085 Weight 78.9 kg 78.8 kg 78.8 kg Exam: Remains soft and non tender Results Laboratory Results: 08/19/18 05:36 08/19/18 05:36 Impressions: Abdomen/Pelvis CT 08/16/18 00:00 IMPRESSION: 1. HETEROGENOUS FLUID COLLECTION IN THE LOWER ABDOMEN AND PELVIS NOW DEMONSTRATES NUMEROUS COLLECTIONS OF GAS WITH GAS EXTENDING INTO THE LEFT PSOAS MUSCLE. PRESUMABLY RELATED TO ABSCESS. SINCE THIS FLUID COLLECTION IS LOCATED ADJACENT TO THE ANASTOMOTIC SUTURE, CANNOT EXCLUDE LEAKAGE FROM THE SURGICAL SITE. 2. FLUID COLLECTION IN THE LOWER RIGHT PERICOLIC GUTTER IS SMALLER AND MORE WELL-DEFINED WITH DECREASED ATTENUATION, PROBABLY REPRESENTING RESOLVING HEMATOMA. 3. NO OTHER SIGNIFICANT FINDINGS IN THE ABDOMEN OR PELVIS. Assessment & Plan - Time Time Spent with patient: 15-24 minutes - Inpatient Certification Medical Necessity: Need For IV Fluids, Need for IV Antibiotics - Plan Summary Plan Summary: Continue IV antibiotics
[2018-08-20] MEDS: MORPHINE SULFATE 10 MG/ML INJ IV PRN (20:13)
[2018-08-20] MEDS: PROMETHAZINE HCL INJ 25 MG/1 ML VIAL IV PRN (22:00)
[2018-08-21] MEDS: HYDROMORPHONE HCL INJ/PF 2 MG/ML AMPULE IV PRN ×5 (01:59→20:21)
[2018-08-21] MEDS: PIPERACILLIN SODIUM/TAZOBACTAM 3.375 GM in NORMAL SALINE 100 ML IV SCH ×3 (02:04→17:49)
[2018-08-21 05:41] LABS: ABSOLUTE BASOPHILS # (AUTO) 0.1 10^3/uL (0.0-0.2); ABSOLUTE EOSINOPHILS # (AUTO) 0.4 10^3/uL (0.0-0.6); ABSOLUTE LYMPHOCYTES (AUTO) 1.9 10^3/uL (0.5-4.7); ABSOLUTE MONOCYTES (AUTO) 1.1 10^3/uL (0.1-1.4); ABSOLUTE NEUT (AUTO) 6.6 10^3/uL (1.7-8.2); BASOPHILS % (AUTO) 0.8 % (0-2); EOSINOPHILS % (AUTO) 3.7 % (0-6); HEMATOCRIT 32.6 % (37.9-51.0); HEMOGLOBIN 10.9 g/dL (13.5-17.0); LYMPHOCYTES % (AUTO) 19.3 % (13-45); MEAN CORPUSCULAR HEMOGLOBIN 27.6 pg (27.0-33.4); MEAN CORPUSCULAR HGB CONC 33.5 g/dL (32.0-36.0); MEAN CORPUSCULAR VOLUME 83 fl (80-97); MONOCYTES % (AUTO) 10.6 % (3-13); PLATELET COUNT 694 10^3/uL (150-450); RED BLOOD COUNT 3.95 10^6/uL (4.35-5.55); RED CELL DISTRIBUTION WIDTH 15.1 % (11.5-14.0); SEGMENTED NEUTROPHILS % (AUTO) 65.6 % (42-78); TOTAL CELLS COUNTED % (AUTO) 100 %; WHITE BLOOD COUNT 10.1 10^3/uL (4.0-10.5)
[2018-08-21 06:07] LABS: ANION GAP 8 (5-19); CALCIUM 8.9 mg/dL (8.4-10.2); CARBON DIOXIDE 27 mmol/L (22-30); CHLORIDE 103 mmol/L (98-107); GLUCOSE 88 mg/dL (75-110); POTASSIUM 4.1 mmol/L (3.6-5.0); SODIUM 137.5 mmol/L (137-145)
[2018-08-21 06:22] LABS: BLOOD UREA NITROGEN < 2 mg/dL (7-20)
[2018-08-21] MEDS: ACETAMINOPHEN WITH CODEINE #3 TABLET PO PRN ×4 (07:47→23:03)
[2018-08-21] MEDS: PROMETHAZINE HCL INJ 25 MG/1 ML VIAL IV PRN (11:11)
[2018-08-21] MEDS: DEXTROSE 5%-1/2 NORMAL SALINE 1,000 ML IV PRN ×2 (12:12→20:21)
[2018-08-22] MEDS: HYDROMORPHONE HCL INJ/PF 2 MG/ML AMPULE IV PRN ×6 (00:20→21:41)
[2018-08-22] MEDS: PROMETHAZINE HCL INJ 25 MG/1 ML VIAL IV PRN ×6 (00:30→21:40)
--- NOTE | 2018-08-22 01:40 | PDOC PROGRESS REPORT ---
Subjective Progress Note for:: 08/21/18 Subjective:: no pains.Has BM Reason For Visit: POST OP HEMATOMA,GI BLEED,S/P COLOSTOMY TAKEDOWN Physical Exam Vital Signs: Temp Pulse Resp BP Pulse Ox 98.6 F 64 18 126/63 H 99 08/21/18 19:35 08/21/18 19:35 08/21/18 11:18 08/21/18 19:35 08/21/18 19:35 Intake & Output 08/20/18 08/21/18 08/22/18 06:59 06:59 06:59 Intake Total 6809 4799 1703 Output Total 2950 3270 1200 Balance 3859 1529 503 Weight 78.8 kg 78.6 kg Exam: wound still draining dark brown non foul smelling fluid Results Laboratory Results: 08/21/18 04:43 08/21/18 04:43 08/21/18 08/21/18 04:43 04:43 WBC 10.1 RBC 3.95 L Hgb 10.9 L Hct 32.6 L MCV 83 MCH 27.6 MCHC 33.5 RDW 15.1 H Plt Count 694 H Seg Neutrophils % 65.6 Lymphocytes % 19.3 Monocytes % 10.6 Eosinophils % 3.7 Basophils % 0.8 Absolute Neutrophils 6.6 Absolute Lymphocytes 1.9 Absolute Monocytes 1.1 Absolute Eosinophils 0.4 Absolute Basophils 0.1 Sodium 137.5 Potassium 4.1 Chloride 103 Carbon Dioxide 27 Anion Gap 8 BUN < 2 L Creatinine 0.63 Est GFR ( Amer) > 60 Est GFR (Non-Af Amer) > 60 Glucose 88 Calcium 8.9 Impressions: Abdomen/Pelvis CT 08/16/18 00:00 IMPRESSION: 1. HETEROGENOUS FLUID COLLECTION IN THE LOWER ABDOMEN AND PELVIS NOW DEMONSTRATES NUMEROUS COLLECTIONS OF GAS WITH GAS EXTENDING INTO THE LEFT PSOAS MUSCLE. PRESUMABLY RELATED TO ABSCESS. SINCE THIS FLUID COLLECTION IS LOCATED ADJACENT TO THE ANASTOMOTIC SUTURE, CANNOT EXCLUDE LEAKAGE FROM THE SURGICAL SITE. 2. FLUID COLLECTION IN THE LOWER RIGHT PERICOLIC GUTTER IS SMALLER AND MORE WELL-DEFINED WITH DECREASED ATTENUATION, PROBABLY REPRESENTING RESOLVING HEMATOMA. 3. NO OTHER SIGNIFICANT FINDINGS IN THE ABDOMEN OR PELVIS. Assessment & Plan - Time Time Spent with patient: 15-24 minutes - Inpatient Certification Medical Necessity: Need for IV Antibiotics - Plan Summary Plan Summary: wound redressed. Mild tenderness around right drainbut no inflammation. Continue IV antibiotics
[2018-08-22] MEDS: PIPERACILLIN SODIUM/TAZOBACTAM 3.375 GM in NORMAL SALINE 100 ML IV SCH ×3 (01:44→17:33)
[2018-08-22] MEDS: MORPHINE SULFATE 10 MG/ML INJ IV PRN (01:52)
[2018-08-22] MEDS: DEXTROSE 5%-1/2 NORMAL SALINE 1,000 ML IV PRN (04:30)
[2018-08-22] MEDS: ACETAMINOPHEN WITH CODEINE #3 TABLET PO PRN (06:51)
--- NOTE | 2018-08-22 10:57 | PDOC PROGRESS REPORT ---
Subjective Reason For Visit: POST OP HEMATOMA,GI BLEED,S/P COLOSTOMY TAKEDOWN Physical Exam Vital Signs: Temp Pulse Resp BP Pulse Ox 98.3 F 68 18 121/61 99 08/22/18 08:00 08/22/18 08:00 08/22/18 08:00 08/22/18 08:00 08/22/18 08:00 Intake & Output 08/21/18 08/22/18 08/23/18 06:59 06:59 06:59 Intake Total 4799 2803 Output Total 3270 3425 Balance 1529 -622 Weight 78.6 kg 78.9 kg Results Laboratory Results: 08/21/18 04:43 08/21/18 04:43 Impressions: Abdomen/Pelvis CT 08/16/18 00:00 IMPRESSION: 1. HETEROGENOUS FLUID COLLECTION IN THE LOWER ABDOMEN AND PELVIS NOW DEMON STRATES NUMEROUS COLLECTIONS OF GAS WITH GAS EXTENDING INTO THE LEFT PSOAS MUSCLE. PRESUMABLY RELATED TO ABSCESS. SINCE THIS FLUID COLLECTION IS LOCATED ADJACENT TO THE ANASTOMOTIC SUTURE, CANNOT EXCLUDE LEAKAGE FROM THE SURGICAL SITE. 2. FLUID COLLECTION IN THE LOWER RIGHT PERICOLIC GUTTER IS SMALLER AND MORE WELL-DEFINED WITH DECREASED ATTENUATION, PROBABLY REPRESENTING RESOLVING HEMATOMA. 3. NO OTHER SIGNIFICANT FINDINGS IN THE ABDOMEN OR PELVIS. Assessment & Plan - Diagnosis (1) Hematoma, postoperative Is this a current diagnosis for this admission?: Yes (2) S/P colostomy takedown Is this a current diagnosis for this admission?: Yes - Plan Summary Plan Summary: Jordon Busby, 43 yo male sp colostomy reversal with postoperative hematoma. Drains in place with thick brown drainage in bulbe but clogged at this time. Having BM. Denies nausea/vomiting. Drains milked at this time. Continue IV antibiotics. Continue local wound care. Pain medication changed to Percocet.
[2018-08-22] MEDS: OXYCODONE-ACETAMINOPHEN 5-325 MG TABLET PO PRN ×4 (11:18→23:53)
[2018-08-23] MEDS: PROMETHAZINE HCL INJ 25 MG/1 ML VIAL IV PRN ×6 (02:06→23:49)
[2018-08-23] MEDS: PIPERACILLIN SODIUM/TAZOBACTAM 3.375 GM in NORMAL SALINE 100 ML IV SCH ×3 (02:07→17:13)
[2018-08-23] MEDS: HYDROMORPHONE HCL INJ/PF 2 MG/ML AMPULE IV PRN ×6 (02:07→23:49)
[2018-08-23] MEDS: OXYCODONE-ACETAMINOPHEN 5-325 MG TABLET PO PRN ×4 (04:33→19:46)
--- NOTE | 2018-08-23 11:34 | PDOC PROGRESS REPORT ---
Subjective Progress Note for:: 08/23/18 Subjective:: no pains. Has BM Reason For Visit: POST OP HEMATOMA,GI BLEED,S/P COLOSTOMY TAKEDOWN Physical Exam Vital Signs: Temp Pulse Resp BP Pulse Ox 98.6 F 78 16 137/80 H 99 08/23/18 08:00 08/23/18 08:00 08/23/18 08:00 08/23/18 08:00 08/23/18 08:00 Intake & Output 08/22/18 08/23/18 08/24/18 06:59 06:59 06:59 Intake Total 2803 1803 100 Output Total 3425 1760 Balance -622 43 100 Weight 78.9 kg 79.2 kg Exam: abdomen remains soft and non tender Drains functioning better with decrease in wound drainage Results Laboratory Results: 08/21/18 04:43 08/21/18 04:43 Impressions: Abdomen/Pelvis CT 08/16/18 00:00 IMPRESSION: 1. HETEROGENOUS FLUID COLLECTION IN THE LOWER ABDOMEN AND PELVIS NOW DEMONSTRATES NUMEROUS COLLECTIONS OF GAS WITH GAS EXTENDING INTO THE LEFT PSOAS MUSCLE. PRESUMABLY RELATED TO ABSCESS. SINCE THIS FLUID COLLECTION IS LOCATED ADJACENT TO THE ANASTOMOTIC SUTURE, CANNOT EXCLUDE LEAKAGE FROM THE SURGICAL SITE. 2. FLUID COLLECTION IN THE LOWER RIGHT PERICOLIC GUTTER IS SMALLER AND MORE WELL-DEFINED WITH DECREASED ATTENUATION, PROBABLY REPRESENTING RESOLVING HEMATOMA. 3. NO OTHER SIGNIFICANT FINDINGS IN THE ABDOMEN OR PELVIS. Assessment & Plan - Time Time Spent with patient: 15-24 minutes - Inpatient Certification Medical Necessity: Need for IV Antibiotics - Plan Summary Plan Summary: Continue antibiotics and wound care Possible discharge in 24-48 hrs Arrange visiting nurse home care for wound
[2018-08-24] MEDS: OXYCODONE-ACETAMINOPHEN 5-325 MG TABLET PO PRN ×4 (01:25→20:29)
[2018-08-24] MEDS: HYDROMORPHONE HCL INJ/PF 2 MG/ML AMPULE IV PRN ×3 (04:07→16:57)
[2018-08-24] MEDS: PROMETHAZINE HCL INJ 25 MG/1 ML VIAL IV PRN ×3 (04:08→23:02)
[2018-08-24] MEDS: PIPERACILLIN SODIUM/TAZOBACTAM 3.375 GM in NORMAL SALINE 100 ML IV SCH ×2 (09:32→17:23)
--- NOTE | 2018-08-24 19:21 | PDOC PROGRESS REPORT ---
Subjective Progress Note for:: 08/24/18 Subjective:: less pains Reason For Visit: POST OP HEMATOMA,GI BLEED,S/P COLOSTOMY TAKEDOWN Physical Exam Vital Signs: Temp Pulse Resp BP Pulse Ox 98.0 F 73 14 122/68 100 08/24/18 15:16 08/24/18 15:16 08/24/18 15:16 08/24/18 15:16 08/24/18 15:16 Intake & Output 08/23/18 08/24/18 08/25/18 06:59 06:59 06:59 Intake Total 1803 3421 200 Output Total 1760 50 70 Balance 43 3371 130 Weight 79.2 kg 80.1 kg 80.1 kg Exam: Drains still working and draining. No drainage from wound though still open Results Laboratory Results: 08/21/18 04:43 08/21/18 04:43 Impressions: Abdomen/Pelvis CT 08/16/18 00:00 IMPRESSION: 1. HETEROGENOUS FLUID COLLECTION IN THE LOWER ABDOMEN AND PELVIS NOW DEMONSTRATES NUMEROUS COLLECTIONS OF GAS WITH GAS EXTENDING INTO THE LEFT PSOAS MUSCLE. PRESUMABLY RELATED TO ABSCESS. SINCE THIS FLUID COLLECTION IS LOCATED ADJACENT TO THE ANASTOMOTIC SUTURE, CANNOT EXCLUDE LEAKAGE FROM THE SURGICAL SITE. 2. FLUID COLLECTION IN THE LOWER RIGHT PERICOLIC GUTTER IS SMALLER AND MORE WELL-DEFINED WITH DECREASED ATTENUATION, PROBABLY REPRESENTING RESOLVING HEMATOMA. 3. NO OTHER SIGNIFICANT FINDINGS IN THE ABDOMEN OR PELVIS. Assessment & Plan - Time Time Spent with patient: 15-24 minutes - Inpatient Certification Medical Necessity: Need for IV Antibiotics - Plan Summary Plan Summary: Continue antibiotics over the weekend and arrange for Home visits for wound care Will try to decrease narcotic use since does not have as much pain. Patient is agreeable with this plan
[2018-08-25] MEDS: HYDROMORPHONE HCL INJ/PF 2 MG/ML AMPULE IV PRN ×4 (00:28→22:44)
[2018-08-25] MEDS: PIPERACILLIN SODIUM/TAZOBACTAM 3.375 GM in NORMAL SALINE 100 ML IV SCH ×3 (01:50→17:32)
[2018-08-25] MEDS: PROMETHAZINE HCL INJ 25 MG/1 ML VIAL IV PRN ×2 (03:06→19:55)
[2018-08-25] MEDS: OXYCODONE-ACETAMINOPHEN 5-325 MG TABLET PO PRN ×3 (03:06→19:53)
[2018-08-25 07:12] LABS: ABSOLUTE BASOPHILS # (AUTO) 0.1 10^3/uL (0.0-0.2); ABSOLUTE EOSINOPHILS # (AUTO) 0.4 10^3/uL (0.0-0.6); ABSOLUTE LYMPHOCYTES (AUTO) 1.9 10^3/uL (0.5-4.7); ABSOLUTE NEUT (AUTO) 7.1 10^3/uL (1.7-8.2); EOSINOPHILS % (AUTO) 3.8 % (0-6); HEMATOCRIT 36.5 % (37.9-51.0); HEMOGLOBIN 12.4 g/dL (13.5-17.0); LYMPHOCYTES % (AUTO) 18.3 % (13-45); MEAN CORPUSCULAR HEMOGLOBIN 27.9 pg (27.0-33.4); MEAN CORPUSCULAR VOLUME 82 fl (80-97); MONOCYTES % (AUTO) 9.2 % (3-13); PLATELET COUNT 589 10^3/uL (150-450); RED BLOOD COUNT 4.44 10^6/uL (4.35-5.55); RED CELL DISTRIBUTION WIDTH 15.2 % (11.5-14.0); SEGMENTED NEUTROPHILS % (AUTO) 67.7 % (42-78); TOTAL CELLS COUNTED % (AUTO) 100 %; WHITE BLOOD COUNT 10.5 10^3/uL (4.0-10.5)
--- NOTE | 2018-08-25 12:34 | PDOC PROGRESS REPORT ---
Subjective Progress Note for:: 08/25/18 Subjective:: doesnt feel well today since decreasing pain meds feels dehydrated. Reason For Visit: POST OP HEMATOMA,GI BLEED,S/P COLOSTOMY TAKEDOWN Physical Exam Vital Signs: Temp Pulse Resp BP Pulse Ox 98.6 F 64 16 127/75 H 99 08/25/18 08:10 08/25/18 08:10 08/25/18 08:10 08/25/18 08:10 08/25/18 08:10 Intake & Output 08/24/18 08/25/18 08/26/18 06:59 06:59 06:59 Intake Total 3421 1201 100 Output Total 50 70 Balance 3371 1131 100 Weight 80.1 kg 77.4 kg General appearance: PRESENT: no acute distress, mild distress Eye exam: PRESENT: EOMI Neck exam: PRESENT: full ROM Respiratory exam: PRESENT: clear to auscultation heena Cardiovascular exam: PRESENT: RRR Pulses: PRESENT: normal radial pulses, normal femoral pulses Vascular exam: PRESENT: normal capillary refill GI/Abdominal exam: PRESENT: soft, other - wound clean with granulation tissue, vilma's min purulent op. Rectal exam: PRESENT: deferred Extremities exam: PRESENT: full ROM Musculoskeletal exam: PRESENT: full ROM Neurological exam: PRESENT: alert, awake, oriented to person, oriented to place, oriented to time Skin exam: PRESENT: dry Results Laboratory Results: 08/25/18 06:41 08/21/18 04:43 08/25/18 06:41 WBC 10.5 RBC 4.44 Hgb 12.4 L Hct 36.5 L MCV 82 MCH 27.9 MCHC 34.0 RDW 15.2 H Plt Count 589 H Seg Neutrophils % 67.7 Lymphocytes % 18.3 Monocytes % 9.2 Eosinophils % 3.8 Basophils % 1.0 Absolute Neutrophils 7.1 Absolute Lymphocytes 1.9 Absolute Monocytes 1.0 Absolute Eosinophils 0.4 Absolute Basophils 0.1 Impressions: Abdomen/Pelvis CT 08/16/18 00:00 IMPRESSION: 1. HETEROGENOUS FLUID COLLECTION IN THE LOWER ABDOMEN AND PELVIS NOW DEMONSTRATES NUMEROUS COLLECTIONS OF GAS WITH GAS EXTENDING INTO THE LEFT PSOAS MUSCLE. PRESUMABLY RELATED TO ABSCESS. SINCE THIS FLUID COLLECTION IS LOCATED ADJACENT TO THE ANASTOMOTIC SUTURE, CANNOT EXCLUDE LEAKAGE FROM THE SURGICAL SITE. 2. FLUID COLLECTION IN THE LOWER RIGHT PERICOLIC GUTTER IS SMALLER AND MORE WELL-DEFINED WITH DECREASED ATTENUATION, PROBABLY REPRESENTING RESOLVING HEMATOMA. 3. NO OTHER SIGNIFICANT FINDINGS IN THE ABDOMEN OR PELVIS. Assessment & Plan - Plan Summary Plan Summary: feels dehydrated this am and c/o of feeling worse after decreasing iv pain meds passing stool and jonathan diet without difficulty wbc 10.5 afeb vss mucous memb sl dry, will give 1 liter iv saline bolus cont to trend vilma output and wbc.
[2018-08-25] MEDS ORDERED: NORMAL SALINE 1000 ML 1,000 ML IV ONE (14:00)
[2018-08-26] MEDS: PIPERACILLIN SODIUM/TAZOBACTAM 3.375 GM in NORMAL SALINE 100 ML IV SCH ×3 (02:15→17:42)
[2018-08-26] MEDS: OXYCODONE-ACETAMINOPHEN 5-325 MG TABLET PO PRN ×4 (02:16→22:36)
[2018-08-26] MEDS: HYDROMORPHONE HCL INJ/PF 2 MG/ML AMPULE IV PRN ×3 (05:53→17:42)
[2018-08-26] MEDS: PROMETHAZINE HCL INJ 25 MG/1 ML VIAL IV PRN (07:47)
--- NOTE | 2018-08-26 11:11 | PDOC PROGRESS REPORT ---
Subjective Progress Note for:: 08/26/18 Subjective:: feels better today ate dinner late last pm. sl better appetite Reason For Visit: POST OP HEMATOMA,GI BLEED,S/P COLOSTOMY TAKEDOWN Physical Exam Vital Signs: Temp Pulse Resp BP Pulse Ox 98.1 F 69 16 129/69 H 99 08/26/18 07:38 08/26/18 07:38 08/26/18 07:38 08/26/18 07:38 08/26/18 07:38 Intake & Output 08/25/18 08/26/18 08/27/18 06:59 06:59 06:59 Intake Total 1201 2374 Output Total 70 95 Balance 1131 2279 Weight 77.4 kg 77.2 kg General appearance: PRESENT: no acute distress Head exam: PRESENT: normocephalic Eye exam: PRESENT: EOMI Mouth exam: PRESENT: dry mucosa Respiratory exam: PRESENT: clear to auscultation heena Cardiovascular exam: PRESENT: RRR Pulses: PRESENT: normal radial pulses, normal femoral pulses Vascular exam: PRESENT: normal capillary refill GI/Abdominal exam: PRESENT: soft - vilma drains in place, appear sl feculent and less purulent than yesterday Extremities exam: PRESENT: full ROM Musculoskeletal exam: PRESENT: ambulatory, full ROM Neurological exam: PRESENT: alert, awake, oriented to person, oriented to place, oriented to time, oriented to situation Skin exam: PRESENT: dry Results Laboratory Results: 08/25/18 06:41 08/21/18 04:43 Impressions: Abdomen/Pelvis CT 08/16/18 00:00 IMPRESSION: 1. HETEROGENOUS FLUID COLLECTION IN THE LOWER ABDOMEN AND PELVIS NOW DEMONSTRATES NUMEROUS COLLECTIONS OF GAS WITH GAS EXTENDING INTO THE LEFT PSOAS MUSCLE. PRESUMABLY RELATED TO ABSCESS. SINCE THIS FLUID COLLECTION IS LOCATED ADJACENT TO THE ANASTOMOTIC SUTURE, CANNOT EXCLUDE LEAKAGE FROM THE SURGICAL SITE. 2. FLUID COLLECTION IN THE LOWER RIGHT PERICOLIC GUTTER IS SMALLER AND MORE WELL-DEFINED WITH DECREASED ATTENUATION, PROBABLY REPRESENTING RESOLVING HEMATOMA. 3. NO OTHER SIGNIFICANT FINDINGS IN THE ABDOMEN OR PELVIS. Assessment & Plan - Plan Summary Plan Summary: pt states he feels better this am noted drain character changed to brown liquid pt is passing soft and liqiid stool jonathan reg diet without c/o abd pain will obtain ct today to reasses fluid collection
--- NOTE | 2018-08-26 14:35 | RADIOLOGY REPORT (SQ) ---
EXAM DESCRIPTION: CT ABD/PELVIS WITH IV ORAL COMPLETED DATE/TIME: 08/26/2018 2:17 pm REASON FOR STUDY: r/o pelvic abscess. COMPARISON: 08/16/2018. TECHNIQUE: CT scan of the abdomen and pelvis performed with intravenous and oral contrast using ivan nicki scanning technique with dynamic intravenous contrast injection. Images reviewed with lung, soft t issue, and bone windows. Reconstructed coronal and sagittal MPR images reviewed. Delayed images for e valuation of the urinary system also acquired. All images stored on PACS. All CT scanners at this facility use dose modulation, iterative reconstruction, and/or weight based d osing when appropriate to reduce radiation dose to as low as reasonably achievable (ALARA). [facility]: Dose Right [facility]: CareDose [facility]: Dose Right [facility]: Teradose 4D [facility]: Evalve CONTRAST TYPE AND DOSE: contrast/concentration: Isovue 350.00 mg/ml; Total Contrast Delivered: 88.0 ml; Total Saline Delivered: 54.7 ml RENAL FUNCTION: Creatinine 0.6 RADIATION DOSE: CT Rad equipment meets quality standard of care and radiation dose reduction techniq ues were employed. CTDIvol: 6.1 - 8.4 mGy. DLP: 855 mGy-cm.. LIMITATIONS: None. FINDINGS: LOWER CHEST: Mild chronic areas of basilar subsegmental atelectasis/ scar. LIVER: Normal size. No masses. No dilated ducts. SPLEEN: Normal size. No focal lesions. PANCREAS: No masses. No significant calcifications. No adjacent inflammation or peripancreatic fluid collections. Pancreatic duct not dilated. GALLBLADDER: No identified stones by CT criteria. No inflammatory changes to suggest cholecystitis. ADRENAL GLANDS: No significant masses or asymmetry. RIGHT KIDNEY AND URETER: No solid masses. No significant calcification. No hydronephrosis or hydroure ter. LEFT KIDNEY AND URETER: No solid masses. No significant calcification. No hydronephrosis or hydrouret er. AORTA AND VESSELS: No aneurysm. No dissection. Renal arteries, SMA, celiac without stenosis. RETROPERITONEUM: Decreased size of a low-density thick-walled collection in the right pericolic gutte r. On today's study, this measures up to 4.6 x 2.9 cm in the transverse plane by 7 cm on sagittal im aging. Hounsfield units are in the 30s. This does not appear to be simple drainable fluid. BOWEL AND PERITONEAL CAVITY: Surgical sutures in the sigmoid colon. Previously noted sizable gas and fluid collection here and extending into the left lower quadrant abdominal wall ventrally appears to have been drained. No significant persistent drainable fluid detected. Surgical drains project ove r the bladder dome in this area. No mechanical bowel obstruction. No free air in the abdomen. APPENDIX: Surgically absent. PELVIS: No significant masses. Normal bladder. No free fluid. ABDOMINAL WALL: Subcutaneous wound in the left lower quadrant. No drainable abdominal wall collectio ns. BONES: Spondylosis at the lumbosacral junction. OTHER: No other significant finding. IMPRESSION: 1. Surgical drains in place. Pelvic abscess adjacent to sigmoid anastomosis no longer identified. 2. Right pericolic gutter collection looks smaller, probably improving hematoma. TECHNICAL DOCUMENTATION: JOB ID: [id number] Quality ID # [id number]: Final reports with documentation of one or more dose reduction techniques (e.g., Au tomated exposure control, adjustment of the mA and/or kV according to patient size, use of iterative reconstruction technique) 2010 [employer]- All Rights Reserved Reading location - IP/workstation name: [email or web address]
[2018-08-27] MEDS: PIPERACILLIN SODIUM/TAZOBACTAM 3.375 GM in NORMAL SALINE 100 ML IV SCH ×3 (02:38→17:41)
[2018-08-27] MEDS: HYDROMORPHONE HCL INJ/PF 2 MG/ML AMPULE IV PRN ×2 (09:50→20:11)
--- NOTE | 2018-08-27 11:38 | PDOC PROGRESS REPORT ---
Subjective Progress Note for:: 08/27/18 Subjective:: Patient working up a sweat at night; having significant purulent discharge out of both drains; denies dysuria. Reason For Visit: POST OP HEMATOMA,GI BLEED,S/P COLOSTOMY TAKEDOWN Physical Exam Vital Signs: Temp Pulse Resp BP Pulse Ox 99.2 F 66 14 129/72 H 100 08/27/18 08:00 08/27/18 08:00 08/27/18 08:00 08/27/18 08:00 08/27/18 08:00 Intake & Output 08/26/18 08/27/18 08/28/18 06:59 06:59 06:59 Intake Total 2374 1825 Output Total 95 40 Balance 2279 1785 Weight 77.2 kg 78.2 kg General appearance: PRESENT: no acute distress, other - He is perspiring. GI/Abdominal exam: PRESENT: other - The abdomen is soft no peritoneal signs no rigidity. Both drains intact going to the left lower quadrant ostomy takedown wound which is granulating in nicely. The drains are putting out thick purulent milian fluid Results Laboratory Results: 08/25/18 06:41 08/21/18 04:43 Impressions: Abdomen/Pelvis CT 08/26/18 00:00 IMPRESSION: 1. Surgical drains in place. Pelvic abscess adjacent to sigmoid anastomosis no longer identified. 2. Right pericolic gutter collection looks smaller, probably improving hematoma. Assessment & Plan - Diagnosis (1) Hematoma, postoperative Is this a current diagnosis for this admission?: Yes Plan: Impression: Patient is 11 days status post pelvic washout, colonoscopic evaluation of anastomosis, and pelvic drainage. His drain output has gone from sanguinous to serous and now purulent. He remains on Zosyn; he does not appear to be septic clinically. Recommendations: 1. We will send current pelvic drainage for Gram stain C&S 2. Continue current therapy; patient not ready to be discharged home until tolerated drainage is stabilized (2) GI bleed Qualifiers: GI bleed type/associated pathology: unspecified gastrointestinal hemorrhage type Qualified Code(s): K92.2 - Gastrointestinal hemorrhage, unspecified Is this a current diagnosis for this admission?: Yes (3) S/P colostomy takedown Is this a current diagnosis for this admission?: Yes
[2018-08-27] MEDS: OXYCODONE-ACETAMINOPHEN 5-325 MG TABLET PO PRN (13:09)
[2018-08-28] MEDS: PROMETHAZINE HCL INJ 25 MG/1 ML VIAL IV PRN (01:42)
[2018-08-28] MEDS: PIPERACILLIN SODIUM/TAZOBACTAM 3.375 GM in NORMAL SALINE 100 ML IV SCH ×3 (01:44→17:02)
--- NOTE | 2018-08-28 09:24 | PDOC PROGRESS REPORT ---
Subjective Progress Note for:: 08/28/18 Subjective:: Some lower abdominal pain. Otherwise feels okay. Reason For Visit: POST OP HEMATOMA,GI BLEED,S/P COLOSTOMY TAKEDOWN Physical Exam Vital Signs: Temp Pulse Resp BP Pulse Ox 99.1 F 62 17 133/70 H 100 08/27/18 23:44 08/27/18 23:44 08/27/18 23:44 08/27/18 23:44 08/27/18 23:44 Intake & Output 08/27/18 08/28/18 08/29/18 06:59 06:59 06:59 Intake Total 1825 2760 Output Total 40 10 Balance 1785 2750 Weight 78.2 kg 76.2 kg General appearance: PRESENT: no acute distress, cooperative Respiratory exam: PRESENT: clear to auscultation heena Cardiovascular exam: PRESENT: RRR GI/Abdominal exam: PRESENT: other - Soft, nondistended, minimal tenderness. Drains are in place with purulent output. Results Laboratory Results: 08/25/18 06:41 08/21/18 04:43 Impressions: Abdomen/Pelvis CT 08/26/18 00:00 IMPRESSION: 1. Surgical drains in place. Pelvic abscess adjacent to sigmoid anastomosis no longer identified. 2. Right pericolic gutter collection looks smaller, probably improving hematoma. Assessment & Plan - Diagnosis (1) Infected hematoma following procedure Is this a current diagnosis for this admission?: Yes Plan: Patient appears well despite the purulent drainage. Cultures are growing out a gram-negative faraz and speciation is pending. Will adjust antibiotic according to culture results. With the patient's appearance will likely be able to send the patient home with p.o. antibiotics in the next couple of days with the drains in place.
[2018-08-28] MEDS: OXYCODONE-ACETAMINOPHEN 5-325 MG TABLET PO PRN ×2 (11:04→17:33)
[2018-08-28] MEDS: HYDROMORPHONE HCL INJ/PF 2 MG/ML AMPULE IV PRN (14:11)
[2018-08-28] MEDS ORDERED: IBUPROFEN 800 MG TABLET PO ONE (23:30)
[2018-08-29] MEDS: OXYCODONE-ACETAMINOPHEN 5-325 MG TABLET PO PRN (00:51)
[2018-08-29] MEDS: PROMETHAZINE HCL INJ 25 MG/1 ML VIAL IV PRN (00:51)
[2018-08-29] MEDS ORDERED: IBUPROFEN 800 MG TABLET ONE (03:12)
[2018-08-29] MEDS: PIPERACILLIN SODIUM/TAZOBACTAM 3.375 GM in NORMAL SALINE 100 ML IV SCH ×2 (03:13→08:59)
[2018-08-29] MEDS ORDERED: IBUPROFEN 800 MG TABLET PO PRN (08:50)
[2018-08-29 12:57] VITALS: BP 130/81
--- NOTE | 2018-08-29 17:52 | PDOC DISCHARGE SUMMARY ---
General - Admit/Disc Date/PCP Admission Date/Primary Care Provider: 08/16/18 11:45 ИВАН ROSENBERG MD Discharge Date: 08/29/18 - Discharge Diagnosis (1) Intra-abdominal abscess post-procedure Is this a current diagnosis for this admission?: Yes - Additional Information Resuscitation Status: Full Code Discharge Diet: As Tolerated Discharge Activity: Balance Activity w/Rest, No Lifting Over 10 Pounds Home Medications: No Home Medications 07/24/18 History of Present Illness History of Present Illness: JENNY KOWALSKI JR is a 43 year old male recently status post colostomy reversal. Last week the patient was hospitalized for lower abdominal pain. He was discharged home in stable condition. The patient represented to the hospital with continued bilateral abdominal pain. He reports fevers and night sweats. His temperature has reached 101 F at home. He denies nausea or vomiting, but he does feel weak, fatigued, short of breath, and he has experienced malaise. He also reports intermittent hematochezia. The patient was admitted to the hospital for further workup. Hospital Course Hospital Course: The patient was admitted to the hospital and a CT scan was performed. A CT scan showed a large, infected intraperitoneal abscess with gas formation. The patient was taken to the operating room where a large infected hematoma was evacuated. The patient was taken to the floor, where he continued to receive intravenous antibiotics. His USMAN drains have been productive of purulent materia l, however the amount of drainage has steadily declined. At this time, the patient is afebrile, he is ambulating, his pain is controlled, and we have cultures and sensitivities of the bacteria that were growing inside his abscess. The patient is requesting discharge home. This is reasonable, considering his stability. I will send the patient home with oral antibiotics. He is to continue to empty his USMAN drains. Physical Exam Vital Signs: Temp Pulse Resp BP Pulse Ox 98.6 F 72 18 130/81 H 100 08/29/18 12:56 08/29/18 12:56 08/29/18 12:56 08/29/18 12:56 08/29/18 12:56 Intake & Output 08/28/18 08/29/18 08/30/18 06:59 06:59 06:59 Intake Total 2760 1894 100 Output Total 10 60 Balance 2750 1834 100 Weight 76.2 kg 76.1 kg Results Laboratory Results: 08/25/18 06:41 08/21/18 04:43 Impressions: Abdomen/Pelvis CT 08/26/18 00:00 IMPRESSION: 1. Surgical drains in place. Pelvic abscess adjacent to sigmoid anastomosis no longer identified. 2. Right pericolic gutter collection looks smaller, probably improving hematoma. Qualifiers - * PATIENT BEING DISCHARGED WITH ANY OF THE FOLLOWING DIAGNOSIS: No Plan Discharge Plan: Discharge home. Diet as tolerated. Activity: Nonstrenuous, no lifting greater than 10 pounds. Follow-up with [facility] in 7-10 days. Empty USMAN drains every day. Cipro 500 mg p.o. twice daily, Flagyl 500 mg p.o. 3 times daily, cefdinir 300 mg p.o. twice daily. Okay to shower. Time Spent: Less than 30 Minutes
== END 2018-08-29 16:30 | disposition home or self-care (01) | DRG 857 ==
LOC: UNDOADMIN 11:45 → 4N 11:45
PROVIDERS: ADMIT Surgery; ATTEND Surgery
PROC: 0W3P8ZZ Control Bleeding in Gastrointestinal Tract, Via Natural or Artificial Opening Endoscopic (ICD-10-PCS; 2018-08-16)
PROC: 0WCJ0ZZ Extirpation of Matter from Pelvic Cavity, Open Approach (ICD-10-PCS; principal; 2018-08-16 17:15)
DX: T81.43XA Infection following a procedure, organ and space surgical site, initial encounter (principal); K91.870 Postprocedural hematoma of a digestive system organ or structure following a digestive system procedure; K68.11 Postprocedural retroperitoneal abscess; K21.9 Gastro-esophageal reflux disease without esophagitis; M19.90 Unspecified osteoarthritis, unspecified site; F43.10 Post-traumatic stress disorder, unspecified; F12.90 Cannabis use, unspecified, uncomplicated; R61 Generalized hyperhidrosis; B96.89 Other specified bacterial agents as the cause of diseases classified elsewhere; Z87.891 Personal history of nicotine dependence
CPT/HCPCS: 36415; 74177; 790; 80048; 80053; 80076; 81001; 85025; 87070; 87075; 87077; 87186; 87205; A6266; C9290; J0131; J0171; J0330; J1170; J2250; J2270; J2543; J2550; J2704; J3010; J3490; J7030

== ENCOUNTER → 2018-08-16 | Outpatient (CLI) | payer OTHER ==
[2018-08-16 09:53] LABS: ABSOLUTE BASOPHILS # (AUTO) 0.1 10^3/uL (0.0-0.2); ABSOLUTE EOSINOPHILS # (AUTO) 0.4 10^3/uL (0.0-0.6); ABSOLUTE LYMPHOCYTES (AUTO) 1.5 10^3/uL (0.5-4.7); ABSOLUTE MONOCYTES (AUTO) 1.8 10^3/uL (0.1-1.4); ABSOLUTE NEUT (AUTO) 13.1 10^3/uL (1.7-8.2); BASOPHILS % (AUTO) 0.8 % (0-2); EOSINOPHILS % (AUTO) 2.6 % (0-6); HEMATOCRIT 35.9 % (37.9-51.0); HEMOGLOBIN 12.6 g/dL (13.5-17.0); LYMPHOCYTES % (AUTO) 8.9 % (13-45); MEAN CORPUSCULAR HEMOGLOBIN 28.6 pg (27.0-33.4); MEAN CORPUSCULAR VOLUME 82 fl (80-97); MONOCYTES % (AUTO) 10.8 % (3-13); PLATELET COUNT 910 10^3/uL (150-450); RED BLOOD COUNT 4.38 10^6/uL (4.35-5.55); RED CELL DISTRIBUTION WIDTH 15.1 % (11.5-14.0); SEGMENTED NEUTROPHILS % (AUTO) 76.9 % (42-78); TOTAL CELLS COUNTED % (AUTO) 100 %
== END ==
LOC: OD 09:23
PROVIDERS: ATTEND Surgery
DX: K62.5 Hemorrhage of anus and rectum (principal); Z98.890 Other specified postprocedural states
CPT/HCPCS: 36415; 85025

== ENCOUNTER → 2018-09-19 | Outpatient (CLI) | payer OTHER ==
--- NOTE | 2018-09-19 14:42 | RADIOLOGY REPORT (SQ) ---
EXAM DESCRIPTION: CT ABD/PELVIS ORAL ONLY COMPLETED DATE/TIME: 09/19/2018 2:13 pm REASON FOR STUDY: R10.9 UNSPECIFIED ABDOMINAL PAIN R10.9 UNSPECIFIED ABDOMINAL PAIN COMPARISON: 08/26/2018 TECHNIQUE: CT scan of the abdomen and pelvis performed without intravenous. Rectal and oral contras t was administered. Images reviewed with lung, soft tissue, and bone windows. Reconstructed coronal a nd sagittal MPR images reviewed. All images stored on PACS. All CT scanners at this facility use dose modulation, iterative reconstruction, and/or weight based d osing when appropriate to reduce radiation dose to as low as reasonably achievable (ALARA). [facility]: Dose Right [facility]: CareDose [facility]: Dose Right [facility]: Teradose 4D [facility]: [employer] RADIATION DOSE: CT Rad equipment meets quality standard of care and radiation dose reduction techniq ues were employed. CTDIvol: 5.0 mGy. DLP: 300 mGy-cm.mGy. LIMITATIONS: Upper abdomen lung bases excluded by collimation. FINDINGS: LOWER CHEST: Not visualized. NON-CONTRASTED LIVER, SPLEEN, ADRENALS: Upper abdomen partially excluded by collimation. Evaluation limited by lack of IV contrast. No identified significant masses. PANCREAS: No masses. No peripancreatic inflammatory changes. GALLBLADDER: No identified stones by CT criteria. No inflammatory changes to suggest cholecystitis. RIGHT KIDNEY AND URETER: No suspicious masses. Assessment limited by lack of IV contrast. No signif icant calcifications. No hydronephrosis or hydroureter. LEFT KIDNEY AND URETER: No suspicious masses. Assessment limited by lack of IV contrast. No signifi cant calcifications. No hydronephrosis or hydroureter. AORTA AND RETROPERITONEUM: No aneurysm. No retroperitoneal masses or adenopathy. BOWEL AND PERITONEAL CAVITY: Postsurgical changes with staple line at the sigmoid colon. There is un changed position of the perisigmoid surgical drains. No residual collection. Rectal contrast catracho ses the area without definite evidence of extravasation. Previously seen collection within the right paracolic gutter has largely resolved. No evidence of focal bowel wall thickening or intestinal obs truction. No new drainable collection. APPENDIX: Not clearly visualized. PELVIS, BLADDER, AND ABDOMINAL WALL:No abnormal masses. No free fluid. Bladder normal. BONES: No acute bony abnormality. No suspicious osseous lesions. OTHER: Rectal catheter in place. Surgical drains within the perisigmoid region. Evidence of prior m idline laparotomy. IMPRESSION: 1. Surgical drains within the perisigmoid region without evidence of residual drainable collection. Rectal contrast to the level of the sigmoid colon without evidence of extravasation. N o new drainable collection. 2. Resolution of previously seen right pericolic gutter collection. COMMENT: Quality ID # 436: Final reports with documentation of one or more dose reduction techniques (e.g., Automated exposure control, adjustment of the mA and/or kV according to patient size, use of iterative reconstruction technique) TECHNICAL DOCUMENTATION: JOB ID: [id number] [employer]- All Rights Reserved Reading location - IP/workstation name: [email or web address]
== END ==
LOC: RAD 13:38
PROVIDERS: ATTEND Surgery
DX: T81.40XA Infection following a procedure, unspecified, initial encounter (principal); R10.9 Unspecified abdominal pain; Z98.890 Other specified postprocedural states
CPT/HCPCS: 74176

== ENCOUNTER 2018-11-26 18:58 | Emergency (ER) | payer OTHER ==
[2018-11-26 19:46] VITALS: BP 140/81
== END 2018-11-26 20:10 | disposition left against medical advice (07) ==
LOC: ER 18:58
DX: Z53.21 Procedure and treatment not carried out due to patient leaving prior to being seen by health care provider (principal)

== ENCOUNTER → 2018-11-27 | Outpatient (CLI) | payer OTHER ==
--- NOTE | 2018-11-27 14:07 | RADIOLOGY REPORT (SQ) ---
EXAM DESCRIPTION: CT ABD/PELVIS WITH IV ORAL COMPLETED DATE/TIME: 11/27/2018 12:59 pm REASON FOR STUDY: LLQ PAIN (R10.32), OTHER SPECIFIED POSTPROCEDURAL STATES (Z98.890) R10.32 LEFT LO WER QUADRANT PAIN Z98.890 OTHER SPECIFIED POSTPROCEDURAL STATES S31.109A UNSP OPN WND ABD WALL, UNS P Q W/O PENET PERIT CAV, COMPARISON: Multiple prior CT exams since 12/27/2016, most recently 09/19/2018, 08/26/2018 TECHNIQUE: CT scan of the abdomen and pelvis performed using helical scanning technique with dynamic intravenous contrast injection. Patient drank oral contrast. Images reviewed with lung, soft tissue , and bone windows. Reconstructed coronal and sagittal MPR images reviewed. Delayed images for evalua tion of the urinary system also acquired. All images stored on PACS. All CT scanners at this facility use dose modulation, iterative reconstruction, and/or weight based d osing when appropriate to reduce radiation dose to as low as reasonably achievable (ALARA). [facility]: Dose Right [facility]: CareDose [facility]: Dose Right [facility]: Teradose 4D [facility]: [employer] CONTRAST TYPE AND DOSE: contrast/concentration: Isovue 350.00 mg/ml; Total Contrast Delivered: 94.0 ml; Total Saline Delivered: 71.0 ml RENAL FUNCTION: None required. The patient is less than 50 years old. RADIATION DOSE: CT Rad equipment meets quality standard of care and radiation dose reduction techniq ues were employed. CTDIvol: 5.0 - 5.8 mGy. DLP: 569 mGy-cm.. LIMITATIONS: None. FINDINGS: Patient is post left lower quadrant colostomy takedown in July 2018. There is a fistu lous tract from the colon anastomotic fabrice along the left lower quadrant to the left lower quadran t anterior abdominal wall colostomy site. This tract is best shown on axial images 60-70, sagittal r econstruction images 42-50, and coronal images 20 through 33. This finding was discussed with Dr. Sa mejias. Patient drank oral contrast, which had not yet reached the anastomosis along the distal descending/pr oximal sigmoid colon at the time of scanning. Remainder of the gastrointestinal tract is otherwise unremarkable. LOWER CHEST: No significant findings. No nodules or infiltrates. LIVER: Normal size. No masses. No dilated ducts. SPLEEN: Normal size. No focal lesions. PANCREAS: No masses. No significant calcifications. No adjacent inflammation or peripancreatic fluid collections. Pancreatic duct not dilated. GALLBLADDER: No identified stones by CT criteria. No inflammatory changes to suggest cholecystitis. ADRENAL GLANDS: No significant masses or asymmetry. RIGHT KIDNEY AND URETER: No solid masses. No significant calcifications. No hydronephrosis or hyd roureter. LEFT KIDNEY AND URETER: No solid masses. No significant calcifications. No hydronephrosis or hydr oureter. AORTA AND VESSELS: No aneurysm. No dissection. Renal arteries, SMA, celiac without stenosis. RETROPERITONEUM: No retroperitoneal adenopathy, hemorrhage or masses. BOWEL AND PERITONEAL CAVITY: Patient drank oral contrast. No CT signs of bowel obstruction. There i s of fistula from left lower quadrant colonic anastomosis to the colostomy takedown site along the le ft lower quadrant anterior abdominal wall. APPENDIX: Not identified PELVIS: No mass. No free fluid. Normal bladder. ABDOMINAL WALL: No masses. No hernias. BONES: No significant or acute findings. OTHER: No other significant finding. IMPRESSION: Fistula from anastomosis to left lower quadrant anterior abdominal wall. No CT evidence of bowel obstruction. TECHNICAL DOCUMENTATION: JOB ID: [id number] Quality ID # [id number]: Final reports with documentation of one or more dose reduction techniques (e.g., Au tomated exposure control, adjustment of the mA and/or kV according to patient size, use of iterative reconstruction technique) 2010 [employer]- All Rights Reserved Reading location - IP/workstation name: [email or web address]
== END ==
LOC: RAD 09:58
PROVIDERS: ATTEND Surgery
DX: S31.109A Unspecified open wound of abdominal wall, unspecified quadrant without penetration into peritoneal cavity, initial encounter (principal); R10.32 Left lower quadrant pain; Z98.890 Other specified postprocedural states; X58.XXXA Exposure to other specified factors, initial encounter
CPT/HCPCS: 74177; 82565

== ENCOUNTER 2018-12-12 10:12 | Day surgery (SDC) | payer OTHER ==
[~2018-12-12 10:12] MED LIST changes: +CEFOXITIN SODIUM 2 GM in DEXTROSE 5%-WATER 100 ML IV PRN; +IBUPROFEN 800 MG in NORMAL SALINE 250 ML IV PRN; -LACTATED RINGERS 1000 ML IV PRN; -LIDOCAINE 0.5% INJ-PF (5 MG/ML) 50 ML SDV SUBCUT PRN; -METRONIDAZOLE 500 MG/NS RTU 500 MG/100 ML RTUPB IV PRN
[2018-12-12] MEDS ORDERED: ACETAMINOPHEN 325 MG TABLET ONE (11:00)
[2018-12-12] MEDS: ACETAMINOPHEN 325 MG TABLET PO PRN ×2 (12:30→13:20)
[2018-12-12 12:40] LABS: HEMATOCRIT 44.1 % (37.9-51.0); HEMOGLOBIN 14.9 g/dL (13.5-17.0); MEAN CORPUSCULAR HEMOGLOBIN 28.4 pg (27.0-33.4); MEAN CORPUSCULAR HGB CONC 33.8 g/dL (32.0-36.0); MEAN CORPUSCULAR VOLUME 84 fl (80-97); PLATELET COUNT 332 10^3/uL (150-450); RED BLOOD COUNT 5.24 10^6/uL (4.35-5.55); RED CELL DISTRIBUTION WIDTH 14.9 % (11.5-14.0); WHITE BLOOD COUNT 16.7 10^3/uL (4.0-10.5)
[2018-12-12] MEDS ORDERED: LIDOCAINE 2% INJ-PF (20 MG/ML) 10 ML AMPUL ONE (13:06)
[2018-12-12] MEDS ORDERED: FENTANYL CITRATE INJ/PF 100 MCG/2 ML AMPUL ONE (13:07)
[2018-12-12] MEDS ORDERED: DEXAMETHASONE SOD PHOSPHATE INJ 4 MG/1 ML VIAL ONE (13:07)
[2018-12-12] MEDS ORDERED: MIDAZOLAM 2 MG/2 ML INJ ONE (13:07)
[2018-12-12] MEDS ORDERED: ONDANSETRON HCL INJ/PF 4 MG/2 ML SDV ONE (13:07)
[2018-12-12] MEDS ORDERED: PROPOFOL INJ 200 MG/20 ML VIAL IV ONE (13:07)
[2018-12-12] MEDS ORDERED: BUPIVACAINE HCL 0.25 % INJ/PF (2.5 MG/1 ML) 30 ML VIAL ONE (13:12)
[2018-12-12] MEDS ORDERED: LIDOCAINE 1% INJ-PF (10 MG/ML) 30 ML SDV ONE (13:12)
[2018-12-12 13:45] LABS: URINE AMPHETAMINES SCREEN NEGATIVE; URINE BARBITURATES SCREEN NEGATIVE; URINE BENZODIAZEPINES SCREEN NEGATIVE; URINE COCAINE SCREEN NEGATIVE; URINE METHADONE SCREEN NEGATIVE; URINE PHENCYCLIDINE SCREEN NEGATIVE
[2018-12-12 13:55] LABS: URINE MARIJUANA (THC) SCREEN UNCONFIRMED POSITIVE
[2018-12-12] MEDS ORDERED: PROMETHAZINE HCL INJ 25 MG/1 ML VIAL IV PRN ×2 (13:59)
[2018-12-12] MEDS ORDERED: DIPHENHYDRAMINE HCL 50 MG/ML VIAL IV PRN (13:59)
[2018-12-12] MEDS ORDERED: MEPERIDINE HCL/PF INJ 25 MG/1 ML DISP.SYRIN IV PRN (13:59)
[2018-12-12] MEDS ORDERED: FENTANYL CITRATE INJ/PF 100 MCG/2 ML AMPUL IV PRN ×3 (13:59)
[2018-12-12] MEDS: FENTANYL CITRATE INJ/PF 100 MCG/2 ML AMPUL ONE ×4 (14:15→14:30)
[2018-12-12] MEDS ORDERED: TRAMADOL HCL 50 MG TABLET PO PRN (15:30)
[2018-12-12 16:14] VITALS: BP 118/69
--- NOTE | 2018-12-14 07:16 | Discharge Summary ---
Discharge Summary (SDC) - Discharge Final Diagnosis: colocutaneous fistula, abdominal wall abscess Date of Surgery: 12/12/18 Discharge Date: 12/12/18 Condition: Stable Forms: ASU Anesthesia D/C Instruction, Discharge POC-Surgical Service Treatment or Instructions: NO TUB BATHS TAKE DOWN DRESSING, SHOWER, RINSE WOUND, REDRESS FOLLOW UP WITH DR TAO SCHEDULED Referrals: RILEY TAO MD [ACTIVE STAFF] - 12/20/18 8:15 am Discharge Diet: As Tolerated Respiratory Treatments at Home: Deep Breathing/Coughing, Incentive Spirometer Discharge Activity: Balance Activity w/Rest, No Lifting Over 10 Pounds, No tub bath Home Care Assistance: None Needed Report the Following to Your Physician Immediately: Shortness of Breath, Nausea, Vomiting, Increase in Pain, Fever over 101 Degrees, Redness, Warmth, Drainage- Foul Smelling
--- NOTE | 2018-12-14 07:38 | Operative Report ---
Nonrecallable Operative Report DATE OF SURGERY: 12/12/18 PREOPERATIVE DIAGNOSIS: abdominal wall abscess POSTOPERATIVE DIAGNOSIS: colocutaneous fistula, abdominal wall abscess OPERATION: incision and drainage of abdominal wall abscess. identification of colocutaneous fistula SURGEON: RILEY TAO ANESTHESIA: LMAC TISSUE REMOVED OR ALTERED: none COMPLICATIONS: none apparent ESTIMATED BLOOD LOSS: minimal PROCEDURE: Drains/implants: 4 x 4 gauze. Procedure in detail: After informed consent was obtained, the patient was brought to the operating room and laid in the supine position. The area of the abdomen was prepped and draped in a normal sterile fashion. A small opening in the skin in the left lower quadrant was probed with a hemostat. There was a tract present. This was laid open and skin/fatty tissue was debrided away sharply. The tract was followed down to the fascia, where a small hole was identified. I believe this to be the tract of the [place]-cutaneous fistula. There was a small amount of purulent material within the fistula tract. The area was opened adequately, to facilitate drainage. The wound was irrigated and cleaned. A dressing was placed, and the procedure was concluded. All sponge, instrument, and needle counts were correct x2. Condition: Stable.
== END 2018-12-12 15:50 | disposition home or self-care (01) ==
LOC: OROUT 10:12
PROVIDERS: ATTEND Surgery
DX: L02.211 Cutaneous abscess of abdominal wall (principal); F17.210 Nicotine dependence, cigarettes, uncomplicated; K63.2 Fistula of intestine; Z88.5 Allergy status to narcotic agent
CPT/HCPCS: 36415; 85027; 80307; 10060; J2250; J1100; J0694; J3010; J3490 ×2; J2405; J7060; J7050; J2704; J1741; 800

== ENCOUNTER 2020-01-21 09:30 | Emergency (ER) | payer OTHER ==
[2020-01-21] MEDS ORDERED: IBUPROFEN 600 MG TABLET PO ONE (10:38)
--- NOTE | 2020-01-21 10:44 | ER Document Report ---
HPI - HPI Time Seen by Provider: 01/21/20 10:31 Notes: 44 yr old male presents today with complaints with 6 months of bilateral elbow pain, but states that pain is becoming worse today. Denies any trauma. Patient states he has not tried any heat or icing, states he has tried some Motrin with out relief. Reports pain is worse on his left than his right. Denies any numbness or tingling of bilateral upper extremities. Denies any prior history of trauma to bilateral elbows or shoulders. Patient states he is not working currently, does not recall any repetitive movements. Denies fevers, chills, chest pain,palpitations, shortness of breath, dyspnea, nausea, vomiting, diarrhea, abdominal pain, hematuria,blurred vision, double vision, loss of vision, speech changes, LH, dizziness, syncope, headaches, wheezing, ST, URI, neck pain, weakness, bowel or bladder dysfunction, saddle anesthesia, numbness or tingling in bilateral upper or lower extremities equally, muscle paralysis, weakness in bilateral upper or lower extremities equally or rash. Denies IV drug use. MEDICATIONS: I agree with the patient medications as charted by the RN. ALLERGIES: I agree with the allergies as charted by the RN. PAST MEDICAL HISTORY/PAST SURGICAL HISTORY: Reviewed and agree as charted by RN. SOCIAL HISTORY: Reviewed and agree as charted by RN. FAMILY HISTORY: No significant familial comorbid conditions directly related to patient complaint EXAM: Reviewed vital signs as charted by RN. REVIEW OF SYSTEMS:reviewed vital signs by RN CONSTITUTIONAL : Denies fever, chills, or sweats. Denies recent illness. EENT: Denies eye, ear, throat, or mouth pain or symptoms. Denies nasal or sinus congestion or discharge. Denies throat, tongue, or mouth swelling or difficulty swallowing. CARDIOVASCULAR: Denies chest pain. Denies palpitations or racing or irregular heart beat. Denies ankle edema. RESPIRATORY: Denies cough, cold, or chest congestion. Denies shortness of breath, difficulty breathing, or wheezing. GASTROINTESTINAL: Denies abdominal pain or distention. Denies nausea, vo miting, or diarrhea. Denies blood in vomitus, stools, or per rectum. Denies black, tarry stools. Denies constipation. GENITOURINARY: Denies difficulty urinating, painful urination, burning, freq uency, blood in urine, or discharge. MUSCULOSKELETAL: reports bilateral elbow pain. Denies back or neck pain or stiffness. Denies joint pain or swelling. SKIN: Denies rash, lesions or sores. HEMATOLOGIC : Denies easy bruising or bleeding. LYMPHATIC: Denies swollen, enlarged glands. NEUROLOGICAL: Denies confusion or altered mental status. Denies passing out or loss of consciousness. Denies dizziness or lightheadedness. Denies headache. Denies weakness or paralysis or loss of use of either side. Denies problems with gait or speech. Denies sensory loss, numbness, or tingling. Denies seizures. PSYCHIATRIC: Denies anxiety or stress. Denies depression, suicidal ideation, or homicidal ideation. ALL OTHER SYSTEMS REVIEWED AND NEGATIVE. Dictation was performed using [employer] recognition software PHYSICAL EXAMINATION: GENERAL: Well-appearing, well-nourished and in no acute distress. HEAD: Atraumatic, normocephalic. EYES: Pupils equal round and reactive to light, extraocular movements intact, sclera anicteric, conjunctiva are normal. ENT: Nares patent, oropharynx clear without exudates. Moist mucous membranes. NECK: Normal range of motion, supple without lymphadenopathy LUNGS: Breath sounds clear to auscultation bilaterally and equal. No wheezes rales or rhonchi. HEART: Regular rate and rhythm without murmurs ABDOMEN: Soft, nontender, nondistended abdomen. No guarding, no rebound. No masses appreciated. Musculoskeletal: Normal range of motion, no pitting or edema. No cyanosis. L and R with abduction and flexion. slight pain with pain with supination, pronation, extension. 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 APROM in shoulder. DTR +2 in BUE equally. Noted crepitus with APROM in elbow. negative drop arm, neer sign, cabrera test, slightly positive impingement sign all on right. Full motor and sensory function in CASSANDRA. No vascular compromise. No noted swelling, abrasions, ecchymosis, lacerations, scars of recent trauma. No erythema or induration noted to area. Intact median, ulnar and radial nerves bilaterally and equally. muscle strength 5/5 NEUROLOGICAL: Cranial nerves grossly intact. Normal speech, normal gait. Normal sensory, motor exams PSYCH: Normal mood, normal affect. SKIN: Warm, Dry, normal turgor, no rashes or lesions noted. - REPRODUCTIVE Reproductive: DENIES: : Past Medical History - General Information source: Patient - Social History Smoking Status: Current Every Day Smoker Family History: Reviewed & Not Pertinent, DM, Malignancy - Past Medical History Cardiac Medical History: Denies: Hx Atrial Fibrillation, Hx Congestive Heart Failure, Hx Coronary Artery Disease, Hx Heart Attack, Hx Hypercholesterolemia, Hx Hypertension, Hx Peripheral Vascular Disease, Hx Pulmonary Embolism, Hx Heart Murmur Pulmonary Medical History: Denies: Hx Asthma, Hx Bronchitis, Hx COPD, Hx Pneumonia, Hx Respiratory Failure, Hx Sleep Apnea, Hx Tuberculosis Neurological Medical History: Denies: Hx Cerebrovascular Accident, Hx Seizures Renal/ Medical History: Reports: Hx Kidney Stones. Denies: Hx Peritoneal Dialysis Malignancy Medical History: Denies Hx Lung Cancer GI Medical History: Reports: Hx Gastroesophageal Reflux Disease. Denies: Hx Crohn's Disease, Hx Hiatal Hernia, Hx Irritable Bowel, Hx Liver Failure, Hx Pancreatitis, Hx Ulcer Musculoskeletal Medical History: Denies Hx Arthritis, Denies Hx Fibromyalgia, Reports Hx Gout, Denies Hx Muscular Dystrophy Psychiatric Medical History: Reports: Hx Attention Deficit Hyperactivity Disorder, Hx Post Traumatic Stress Disorder Denies: Hx Bipolar Disorder, Hx Depression, Hx Schizophrenia Traumatic Medical History: Denies: Hx Fractures Past Surgical History: Reports: Hx Abdominal Surgery, Hx Appendectomy, Hx Bowel Surgery, Hx Colostomy, Other - Recent colostomy takedown. Denies: Hx Cholecystectomy, Hx Coronary Artery Bypass Graft, Hx Gastric Bypass Surgery, Hx Herniorrhaphy, Hx Pacemaker - Immunizations Immunizations up to date: Yes Hx Diphtheria, Pertussis, Tetanus Vaccination: Yes Vertical Provider Document - CONSTITUTIONAL Agree With Documented VS: Yes Exam Limitations: No Limitations General Appearance: WD/WN - INFECTION CONTROL TRAVEL OUTSIDE OF THE [place] IN LAST 30 DAYS: No Course - Re-evaluation Re-evalutation: 01/21/20 10:50 Afebrile vitals stable no distress. X-ray negative for any acute fractures dislocations or foreign body. Discussed with patient that he does need to apply heat 20 minutes on 20 minutes off several times a day, wear sling, take anti- inflammatories for his pain and alternate between Tylenol as well. Patient advised to follow-up with health care law specialist and primary care provider within the next 24 to 48 hours as needed. I do not see any signs and symptoms of a cellulitis, olecranon bursitis, lateral epicondylitis, medial epicondylitis. After performing a Medical Screening Examination, I estimate there is LOW risk for OPEN FRACTURE, COMPARTMENT SYNDROME, DEEP VENOUS THROMBOSIS, ACUTE TENDON RUPTURE, or NEUROVASCULAR INJURY thus I consider the discharge disposition reasonable. I have reevaluated this patient multiple times and no significant life threatening changes are noted. The patient and I have discussed the diagnosis and risks, and we agree with discharging home to closely follow-up with their primary doctor or the referral orthopedist with the understanding that symptoms and presentations can change. We also discussed returning to the Emergency Department immediately if new or worsening symptoms occur. We have discussed the symptoms which are most concerning (e.g., changing or worsening pain, numbness, weakness) that necessitate immediate return 01/21/20 11:47 Discharge - Discharge Clinical Impression: acute on chronic bilateral elbow pain Condition: Stable Disposition: HOME, SELF-CARE Instructions: Sprain (OM) Additional Instructions: Sling as Treatment A sling has been applied to protect the injury. This is adequate immobilization for this type of injury -- no cast or brace is required. Keep the sling on at all times until instructed to remove it by the doctor. Even though no cast or splint is needed, you must use the sling. If you use the arm too soon, it may not heal properly! If necessary, the sling can be adjusted for comfort. Return if you are en countering problems with the sling. SPRAIN: Your injury is a sprain. A sprain results from stretching or tearing of the ligaments, usually from a twisting injury. The ligaments will require time and protection in order to heal properly. Many sprains are quite disabling and should be taken seriously. The usual initial treatment of sprains is cold packs, elevation, and rest o f the injured area. Your physician has assessed the seriousness of your ligament injury, and has outlined a treatment plan. Understand that this treatment may change, depending on how you progress. If a re-examination was recommended, it is important that you follow up as instructed. Call the doctor any time if there is severe pain, numbness, or loss of function in the injured area. Your x-rays were negative today for any acute fracture. you were given a sling for treatment. follow up with health care law specialist and pcp as needed. FOLLOW-UP CARE: If you have been referred to a physician for follow-up care, call the physicians office for an appointment as you were instructed or within the next two days. If you experience worsening or a significant change in your symptoms, notify the physician immediately or return to the Emergency Department at any time for re-evaluation. Return immediately for any new or worsening symptoms. Follow up with primary care provider, call tomorrow to make followup appointment. Prescriptions: Naproxen 500 mg PO BID #10 tablet Referrals: ERA ARAIZA MD [ACTIVE STAFF] - Follow up as needed YVONNE MCKEON MD [ACTIVE STAFF] - Follow up as needed
--- NOTE | 2020-01-21 11:10 | RADIOLOGY REPORT (SQ) ---
EXAM DESCRIPTION: ELBOW BILATERAL 2 VIEWS MIN IMAGES COMPLETED DATE/TIME: 01/21/2020 11:01 am REASON FOR STUDY: bilateral elbow pain x6m, r/o fracture,having pain COMPARISON: None. NUMBER OF VIEWS: Four views. TECHNIQUE: AP, lateral, and both oblique radiographic images acquired of the left elbow. LIMITATIONS: None. FINDINGS: MINERALIZATION: Normal. BONES: No acute fracture or dislocation. JOINT: No effusion. SOFT TISSUES: No soft tissue swelling. OTHER: No other finding. IMPRESSION: No acute osseous abnormality of the left elbow. TECHNICAL DOCUMENTATION: JOB ID: [id number] [employer]- All Rights Reserved Reading location - IP/workstation name: [email or web address]
[2020-01-21 11:48] VITALS: BP 142/97
== END 2020-01-21 11:49 | disposition home or self-care (01) ==
LOC: ER 09:30
DX: M25.521 Pain in right elbow (principal); M25.522 Pain in left elbow; M25.511 Pain in right shoulder; M25.512 Pain in left shoulder; G89.29 Other chronic pain; F17.200 Nicotine dependence, unspecified, uncomplicated
CPT/HCPCS: 99283

== ENCOUNTER 2020-04-11 09:05 | Emergency (ER) | payer SELFPAY ==
[2020-04-11] MEDS ORDERED: KETOROLAC TROMETHAMINE 0.45% 4 DROP/0.4 ML DROPERETTE OD ONE (10:40)
[2020-04-11] MEDS ORDERED: TETRACAINE HCL 0.5% OPH SOLN 4 ML OD ONE (10:40)
--- NOTE | 2020-04-11 10:48 | ER Document Report ---
Entered by MEGHAN MORRISSEY SCRIBE 04/11/20 1027 Acting as scribe for:MARIPOSA PEREZ MD ED Eye Complaint - General Chief Complaint: Eye Problem Stated Complaint: EYE PAIN Time Seen by Provider: 04/11/20 10:23 Mode of Arrival: Ambulatory Information source: Patient Notes: This 44 year old male patient presents to the emergency department today with complaints of left eye irritation for the last few days. Patient was cutting paula when something flew up into his left eye. He is unsure what flew into his eye but mentions he believes it was wood or vinyl. Patient is photophobic and was woken up with eye crusting the past two morning. TRAVEL OUTSIDE OF THE [place] IN LAST 30 DAYS: No - Related Data Allergies/Adverse Reactions: No Known Allergies Allergy (Verified 04/11/20 09:48) Past Medical History - General Information source: Patient - Social History Smoking Status: Current Every Day Smoker Cigarette use (# per day): Yes - 1 ppd Chew tobacco use (# tins/day): No Frequency of alcohol use: None Drug Abuse: Marijuana Lives with: Family Family History: Reviewed & Not Pertinent, DM, Malignancy Patient has homicidal ideation: No Renal/ Medical History: Reports: Hx Kidney Stones GI Medical History: Reports: Hx Diverticulitis, Hx Gastroesophageal Reflux Disease Musculoskeletal Medical History: Reports Hx Gout Psychiatric Medical History: Reports: Hx Attention Deficit Hyperactivity Disorder, Hx Post Traumatic Stress Disorder Past Surgical History: Reports: Hx Abdominal Surgery, Hx Appendectomy, Hx Bowel Surgery, Hx Colostomy - Diversion colostomy for diverticulitis, Other - Recent colostomy takedown - Immunizations Immunizations up to date: Yes Hx Diphtheria, Pertussis, Tetanus Vaccination: Yes Review of Systems - Review of Systems Constitutional: No symptoms reported EENT: See HPI, Eye pain, Eye discharge Cardiovascular: No symptoms reported Respiratory: No symptoms reported Gastrointestinal: No symptoms reported Genitourinary: No symptoms reported Male Genitourinary: No symptoms reported Musculoskeletal: No symptoms reported Skin: No symptoms reported Hematologic/Lymphatic: No symptoms reported Neurological/Psychological: No symptoms reported -: Yes All other systems reviewed and negative Physical Exam - Vital signs Vitals: Temp Pulse Resp BP Pulse Ox 98.5 F 80 16 127/81 H 98 04/11/20 09:10 04/11/20 09:10 04/11/20 09:10 04/11/20 09:10 04/11/20 09:10 - Notes Notes: Physical Exam: General: Alert, appears well. HEENT: Normocephalic. Atraumatic. PERRL. Extraocular movements intact. Oropharynx clear. Neck: Supple. Non-tender. Respiratory: No respiratory distress. Clear and equal breath sounds bilaterally. Cardiovascular: Regular rate and rhythm. Abdominal: Normal Inspection. Non-tender. No distension. Normal Bowel Sounds. Back: No gross abnormalities. Extremities: Moves all four extremities. Upper extremities: Normal inspection. Normal ROM. Lower extremities: Normal inspection. No edema. Normal ROM. Neurological: Normal cognition. AAOx4. Normal speech. Psychological: Normal affect. Normal Mood. Skin: Warm. Dry. Normal color. Course - Vital Signs Vital signs: Temp Pulse Resp BP Pulse Ox 98.5 F 80 16 127/81 H 98 04/11/20 09:49 04/11/20 09:10 04/11/20 09:10 04/11/20 09:10 04/11/20 09:10 Discharge - Discharge Clinical Impression: Conjunctivitis Qualifiers: Conjunctivitis type: acute Acute conjunctivitis type: unspecified Laterality: left Qualified Code(s): H10.32 - Unspecified acute conjunctivitis, left eye Condition: Stable Disposition: HOME, SELF-CARE Additional Instructions: Conjunctivitis: You have an infection in your eye, commonly known as "pink eye." Conjunctivitis causes redness, mild discomfort, itching, and mattering on the eyelids. It is very contagious, so you must be careful to wash your hands after touching your face so you don't pass the infection on to others. Conjunctivitis is caused by both viruses and bacteria. It usually responds quickly to treatment with antibiotic drops. These should be placed in the eye as prescribed (usually every three to four hours while you're awake). If you wear contact lenses, don't put them in your eyes until the infection is cleared and you are no longer using the drops (unless your doctor advises you otherwise). Should you develop increasing eye pain, severe swelling, decreased vision, or fail to improve as expected, please return for re-examination. No scratches were seen on your cornea today. You do have a yellowish mucousy discharge with inflammation in the lateral aspect of your left eye. This appears to be conjunctivitis, probably developed from contaminated debris that got into your eye when you were working on that trailer floor. Use the eyedrops--place 1 drop in the left eye every 2 hours today, then every 4 hours starting tomorrow. Use the ketorolac drops--1 drop in the left eye every 4 hours today for inflammation. You will be provided a prescription for the same drops to continue for the next 1 to 2 days if your eye continues to feel irritated. Follow-up with a local eye doctor on Monday if your eye is not improving. RETURN TO THE EMERGENCY ROOM IF ANY NEW OR WORSENING SYMPTOMS. Prescriptions: Ketorolac Tromethamine [Acular] 1 drop OS Q4 PRN #5 ml PRN Reason: I personally performed the services described in the documentation, reviewed and edited the documentation which was dictated to the scribe in my presence, and it accurately records my words and actions.
[2020-04-11] MEDS ORDERED: POLYMYXIN B SULFATE/TMP OPH SOLN (10 ML/ER DISP) OS ONE ×2 (11:28→11:36)
[2020-04-11 11:53] VITALS: BP 130/83
== END 2020-04-11 11:52 | disposition home or self-care (01) ==
LOC: ER 09:05
DX: H10.32 Unspecified acute conjunctivitis, left eye (principal); H57.12 Ocular pain, left eye; W22.8XXA Striking against or struck by other objects, initial encounter; F17.210 Nicotine dependence, cigarettes, uncomplicated
CPT/HCPCS: 99283; J3490 ×2